=== PATIENT | male | born 1945 | race Caucasian/White ===

== ENCOUNTER 2019-04-30 11:13 | Inpatient (IN) | payer OTHER, SELFPAY ==
[2019-04-30] VITALS (10 sets, daily range): BP systolic 106–139; BP diastolic 73–103; PULSE 88–115; RESP 15–22; TEMP 36.2–36.4; O2SAT 95–100; BMI 26.4
--- NOTE | ~2019-04-30 | XR_ITS ---
EXAMINATION: XR cholangiogram surg 1st inj EXAM DATE: 05/03/2019 18:45 INDICATION: Cholecystectomy, intraoperative cholangiogram. TECHNIQUE: Fluoroscopy used during XR cholangiogram surg 1st inj performed by Dr. Maynor Bernstein MD. The DAP for this procedure was 0.2 mGym2. Cine run(s) available for review. FINDINGS: Contrast extravasation from injection site, cannot confidently identify or evaluate any grady iary system. Correlate with procedure note. IMPRESSION: Fluoroscopy used during XR cholangiogram surg 1st inj. Reviewed, dictated and finalized at location A. ER FILLER
--- NOTE | ~2019-04-30 | US_ITS ---
EXAMINATION: US venous doppler LE EXAM DATE: 05/08/2019 12:48 INDICATION: Leukocytosis, bilateral leg swelling. TECHNIQUE: Multiple grayscale, color flow and Doppler images of the lower extremity deep venous syste ms bilaterally were obtained and reviewed. There is no prior study for comparison. FINDINGS: Right side: The right common femoral, femoral and profunda veins demonstrate normal color flow, respi ratory variation, augmentation and compressibility. Compressibility, color flow confirmed within the right popliteal, posterior tibial, peroneal, and greater saphenous veins. Left side: The left common femoral, femoral and profunda veins demonstrate normal color flow, respira tory variation, augmentation and compressibility. Compressibility, color flow confirmed within the l eft popliteal, posterior tibial, peroneal, and greater saphenous veins. IMPRESSION: 1. No lower extremity deep venous thrombosis bilaterally. Reviewed, dictated and finalized at location B. IAL SERVICE OFFICER
--- NOTE | ~2019-04-30 | MR_ITS ---
EXAMINATION: MR MRCP wo/w con/w 3D wo ind DATE: 05/02/2019 10:56 INDICATION: Abnormal CT scan concerning for pancreatitis, abdominal pain TECHNIQUE: Magnetic resonance imaging (MRI) of the abdomen was performed without and with intravenous contrast. Sequences included coronal T2-weighted SS-FSE ARC, coronal T2-weighted FS SS-FSE, coronal T2-weighted 2D FS FIESTA, Water:Coronal LAVA-Flex, sagittal T2-weighted SS-FSE ARC, axial SSFSE ARC, axial 3D DualEcho, axial DWI B=600, axial T1-weighted LAVA, FAT:Coronal LAVA-Flex, and coronal in and opposed phase LAVA-Flex. Thick-slab T2-weighted FRFSE-XL images were obtained for magnetic resonance cholangiopancreatography (MRCP). Maximum intensity projection 3-D reconstructions of the volumetric data were created by the technologist. Postcontrast sequences included a time course of axial T1-weig hted LAVA, FAT:Coronal LAVA-Flex, coronal in and opposed phase LAVA-Flex, and Water:Coronal LAVA-Flex . COMPARISON: None. CONTRAST: Multihance, 17 cc FINDINGS: ABDOMEN MRI: Small pleural effusions are noted. The heart size is normal. There is a small volume of perihepatic ascites. The liver, spleen, and adrenal glands appear normal. There are stones and sludge in the gallbladder including stones in the neck of the gallbladder. There is trace pericholecystic f luid. The pancreas demonstrates slightly increased T2 signal intensity and is somewhat ill-defined in shape, suggestive of edema. There is persistent peripancreatic fluid which is unchanged. This fluid demonstrates hyperintense T1 signal intensity on precontrast sequences. Although limited by motion ar tifact, there appears to be uniform enhancement of the pancreas on postcontrast sequences. There are multiple cysts of the kidneys. The 1.2 cm right kidney lesion identified on the comparison CT examina tion has an appearance consistent with a proteinaceous or hemorrhagic cyst. There are hemorrhagic cys ts of the left kidney measuring up to 6 mm. There are no pathologically enlarged abdominal lymph node s. There are no dilated loops of bowel. ABDOMEN MRCP: The common bile duct is normal in course and caliber. No stones or stricture are identi fied in the common bile duct. The pancreatic duct appears normal in head and neck and is attenuated i n the body and tail. Multiple stones are noted in the gallbladder including within the gallbladder ne ck. IMPRESSION: 1. Ill-defined pancreas with acute peripancreatic fluid collection. Although lipase is normal, imagin g findings remain consistent with interstitial edematous pancreatitis, possibly related to gallstones that have since passed. T1 hyperintense fluid surrounding the pancreas may be proteinaceous or hemor rhagic. 2. Normal common bile duct without stones or stricture. 3. Cholelithiasis including stones in the gallbladder neck. 4. Hemorrhagic or proteinaceous cyst corresponding to the right kidney lesion in question on the comp [facility] Reviewed, dictated and finalized at location A. OR ACCOUNT DIRECTOR IMPRESSION: 1. Ill-defined pancreas with acute peripancreatic fluid collection. Although li pase is normal, imaging findings remain consistent with interstitial edematous pancreatitis, possibly related to gallstones that have since passed. T1 hyperin tense fluid surrounding the pancreas may be proteinaceous or hemorrhagic. 2. Normal common bile duct without stones or stricture. 3. Cholelithiasis including stones in the gallbladder neck. 4. Hemorrhagic or proteinaceous cyst corresponding to the right kidney lesion i n question on the comparison CT.
--- NOTE | ~2019-04-30 | CT_ITS ---
EXAMINATION: CT abdomen pelvis w con INDICATION: Altered mental status, abdominal pain TECHNIQUE: Computed tomographic images of the abdomen and pelvis were obtained after the administrati on of 100 cc of Omnipaque 350 intravenous contrast. The dose-length product (DLP) was 587.98 mGy-cm. Automated exposure control and iterative reconstruction technique were employed. COMPARISON: None available FINDINGS: Small pleural effusions are present. There is mild atelectasis of the visualized lung bases . The heart size is normal. There is subendocardial fat deposition in the left ventricular apex which may reflect prior infarction. The liver, spleen, and adrenal glands are normal. There are punctate c alcifications in the tail of the pancreas. There appears to be uniform enhancement of the pancreas. T here is a moderate amount of peripancreatic fluid. There is mild gallbladder distention. On some imag es, there appear to be subtle lucencies in the distal common bile duct. There is a small amount of pe rihepatic ascites. There is fat stranding surrounding the gallbladder which likely relates to abnorma l pancreatic findings. Nonobstructing stones of the right kidney measure up to 2.2 cm. Nonobstructing left kidney stone measure up to 0.9 cm. There is a 1.2 cm soft tissue density lesion projecting from the lateral aspect of the right kidney. No pathologically enlarged abdominal or pelvic lymph nodes a re identified. There is no free intraperitoneal gas or evidence of bowel obstruction. Colonic diverti culosis is present without evidence of diverticulitis. There is severe lumbar spondylosis. IMPRESSION: 1. Findings consistent with interstitial edematous pancreatitis with acute peripancreatic fluid colle ction, possibly related to choledocholithiasis. 2. Indeterminate soft tissue density lesion of the right kidney which could reflect proteinaceous cys t or solid neoplasm. Consider nonemergent ultrasound. Reviewed, dictated and finalized at location A. ARCH SOFTWARE ENGINEER IMPRESSION: 1. Findings consistent with interstitial edematous pancreatitis with acute agustin pancreatic fluid collection, possibly related to choledocholithiasis. 2. Indeterminate soft tissue density lesion of the right kidney which could ref lect proteinaceous cyst or solid neoplasm. Consider nonemergent ultrasound.
--- NOTE | ~2019-04-30 | XR_ITS ---
EXAMINATION: XR chest 2V DATE: 05/06/2019 08:00 INDICATION: Wheezing. TECHNIQUE: Frontal and lateral views of the chest were obtained. COMPARISON: Chest single view 04/17/2019, CT abdomen and pelvis 04/30/2019 FINDINGS: The lung volumes are small with mild relative elevation of right hemidiaphragm. There is mi ld atelectasis at the lung bases. There are small pleural effusions. No pneumothorax. The heart size is normal. IMPRESSION: 1. Small pleural effusions. 2. Mild atelectasis at the lung bases. Reviewed, dictated and finalized at location A. CATION TECHNICIAN
--- NOTE | 2019-04-30 11:20 | ECG_ITS ---
Measurements Intervals [place] Rate: 113 P: 13 NC: 140 QRS: -30 QRSD: 108 T: 31 QT: 317 QTc: 436 Interpretive Statements SINUS TACHYCARDIA ATRIAL PREMATURE COMPLEX POSSIBLE LEFT ATRIAL ENLARGEMENT DELAYED PRECORDIAL R/S TRANSITION BORDERLINE ST-T WAVE ABNORMALITY- DIFFUSE LEADS BASELINE WANDER- I, II, V1-V2, V6 ABNORMAL ECG Electronically Signed On 04-30-2019 11:37:07 CUSTOMER RELATIONS CONSULTANT by Dakota Hickey D.O.
--- NOTE | 2019-04-30 11:22 | ED.AMS ---
HPI - Altered Mental Status General Chief Complaint: Unspecified Stated Complaint: Refusing to eat Time Seen by Provider: 04/30/19 11:15 Source: patient, RN notes reviewed and old records reviewed Mode of arrival: EMS Limitations: dementia History of Present Illness HPI narrative: A 73 y/o male pt with a Hx of dementia, presents to the ED, via EMS, from [facility], with C/O AMS x2 days reported by staff. According to nursing staff, pt's baseline is alert and oriented x2. He is currently denying any pain or nausea and does not remember what he had for breakfast. Pt is also unaware of the mass on the back of his neck. Per records, pt has a Hx of dementia and hypothyroidism. Pt denies having any significant PSHx or smoking Hx. A complete HPI is limited d/t pt having dementia. complaint: altered mental status Onset (ago): day(s) (2) Timing confirmed by: other (Nursing Facility staff) Associated symptoms: denies other symptoms Related Data Home Medications Medication Instructions Recorded Confirmed donepezil 10 mg PO HS 04/17/19 04/17/19 folic acid 1 mg PO DAILY 04/17/19 04/17/19 levothyroxine 100 mcg PO DAILY 04/17/19 04/17/19 thiamine HCl (vitamin B1) [Vitamin 100 mg PO DAILY 04/17/19 04/17/19 B-1] trihexyphenidyl 1 mg PO BID 04/17/19 04/17/19 Allergies Allergy/AdvReac Type Severity Reaction Status Date / Time No Known Allergies Allergy Verified 04/17/19 17:28 Review of Systems Review of Systems: Narrative: A complete ROS is limited d/t patient having dementia Constitutional: Constitutional: Denies other (pain anywhere) Gastrointestinal: Gastrointestinal: Denies nausea PMFSH Past Medical History Medical History (Updated 04/30/19 @ 15:57 by Jamie Mitchell MD) Alzheimer's dementia Bipolar disorder Hypothyroidism Psychosis Seizures Surgical History Surgical History (Updated 04/30/19 @ 13:28 by JASON Hensley) No significant past surgical history Social History Social History (Updated 04/30/19 @ 13:28 by JASON Hensley) Smoking status: Unknown if ever smoked Alcohol intake: unknown Substance use: unknown Substance use type: unknown [facility] Additional living arrangements comments: [facility]. Patient does tell me he was previously and now . Occupation/Education: retired Gender identity (if verbalized by the patient): Male Spiritual care concerns: Yes (Mormon) Agree to blood products: Yes Exam Const: General: alert, awake and ill appearing Orientation/consciousness: oriented to person and oriented to place Limitations: altered mental status HENMT: Head: normocephalic and atraumatic Ears: external ears normal General nose exam: Normal external nose present and No nasal discharge present Mouth: Yes oropharynx normal and Yes dry mucous membranes Resp: Effort & Inspection: normal respiratory effort and able to speak in complete sentences Auscultation: clear to auscultation bilaterally Cardio: Rate: tachycardic Rhythm: regular rhythm Peripheral pulses: radial pulses present and popliteal pulses present GI: Inspection: non-distended GI Palp: Yes Soft to palpation, No Tenderness to palpation present (GI) and No Guarding due to palpation present (GI) Skin: General skin exam: normal color and no rashes or lesions noted Trauma: no lacerations or abrasions Wounds: no wounds Neuro: General: oriented to person, oriented to place and moves all extremities Speech: normal speech Extrem: General: normal to inspection and no clubbing, cyanosis or edema Course Consultations Consultation #1: Discussed case with Dr. Bernstein the general surgeon. Reccommended consulting GI and medicine admission. Date: 04/30/19 Time: 15:02 Consultation #2: Discussed case with Dr. Bueno, the GI specialist. Recommends IV fluids and MCRP. Date: 04/30/19 Time: 15:07 Consultation #3: Discussed case with Paul
[2019-04-30] MEDS: SODIUM CHLORIDE 0.9% IV 1,000 ML 999 ML IV CONT ×2 (11:46→12:58)
[2019-04-30 11:48] LABS: Basophils Absolute Auto 0.1 K/mm3 (0.0-0.1); Basophils Percent Auto 0.3 % (0.2-1.2); Hematocrit 54.7 % (42.0-52.0); Hemoglobin 17.9 g/dL (14.0-18.0); Immature Granulocyte Percent A 1.3 % (0-0.5); Lymphocytes Absolute Auto 0.99 K/mm3 (0.9-3.2); Lymphocytes Percent Auto 4.3 % (18.3-44.2); Mean Corpuscular HGB Conc 32.7 g/dl (32-36); Mean Corpuscular Volume 94.6 fl (80-100); Mean Platelet Volume 10.2 fl (7.4-10.4); Monocytes Absolute Auto 1.1 K/mm3 (0.1-0.6); Monocytes Percent Auto 4.9 % (2.6-8.5); Neutrophils Absolute Auto 20.4 K/mm3 (1.3-6.7); Neutrophils Percent Auto 89.2 % (45.5-73.1); Platelet Count Result 257 k/mm3 (150-375); Red Blood Count 5.78 M/mm3 (4.6-6.20); Red Cell Distribution Width 14.4 % (11.5-14.5); White Blood Count 22.8 K/mm3 (4.5-10.0)
[2019-04-30 12:32] LABS: Add Urine Microscopic? YES; Appearance Urine Clear (Clear); Bacteria Urine Trace /hpf; Bilirubin Urine Negative (Negative); Blood Urine 1+ (Negative); Color Urine Amber (Yellow); Glucose Urine UA Negative (Negative); Ketones Urine Negative (Negative); Leukocyte Esterase Ur Negative LEU/UL (Negative); Mucus Urine Heavy /lpf; Nitrate Urine Negative (Negative); Protein Urine 2+ mg/dL (Negative); RBC Urine 21-50 /hpf (0-2); Specific Grav Ur 1.028 (1.001-1.035); WBC Urine 21-30 /hpf
--- NOTE | 2019-04-30 12:38 | PC.NURSE ---
SHAHNAZ HENDERSON INFORMED OF PT VS, AND THAT FLUIDS ARE FINISHED, STATES HE WANTS ANOTHER STAT BOLUS OF NS.
[2019-04-30 13:02] LABS: Alanine Aminotransferase 69 U/L (4-50); Albumin Level 3.2 g/dL (3.5-5.1); Alkaline Phosphatase 299 U/L (38-126); Aspartate Amino Transferase 36 U/L (17-59); Bilirubin,Total 2.7 mg/dL (0.2-1.3); Blood Urea Nitrogen 38 mg/dL (9-20); Calcium 6.6 mg/dL (8.4-10.2); Carbon Dioxide 22 mmol/L (22-30); Chloride 98 mmol/L (98-107); Estimated CRCL calculation 64 ml/min; Estimated Glomerular Filt Rate > 60; Glucose 120 mg/dL (75-110); Potassium 3.8 mmol/L (3.4-5.0); Sodium 133 mmol/L (137-145)
[2019-04-30 14:15] LABS: Lipase 155 U/L (23-300)
[2019-04-30 14:54] LABS: Lactic Acid Reflex 1.5 mmol/L (0.7-2.1)
--- NOTE | 2019-04-30 15:14 | PM.CNGS ---
Assessment and Plan Assessment and plan (1) Acute pancreatitis: Qualifiers: Acute pancreatitis complication: unspecified Pancreatitis type: unspecified pancreatitis type Qualified Code(s): K85.90 - Acute pancreatitis without necrosis or infection, unspecified Code(s): K85.90 - Acute pancreatitis without necrosis or infection, unspecified Status: Acute Assessment and Plan: CT reviewed and discussed with the patient. He has evidence of acute pancreatitis with suspicion that the cause is due to possible choledocholelithiasis. This is a high suspicion considering he also has elevated liver enzymes and abnormal findings in the distal common bile duct on the CT. Although no evidence of cholelithiasis on the CT. MRCP ordered and will await these results. GI consulted and appreciate their recommendations. If the patient does have findings of choledocholithiasis, then we will await GI's recommendations and possible ERCP prior to considering proceeding with a cholecystectomy. When looking at other possibilities of the pancreatitis, history of alcohol abuse is unknown although you would not expect exposure to this in the senior living. When reviewing his medications, there is no significant concern for any of them to be the cause. Another consideration could be a lipid panel if there is no evidence of choledocholelithiasis. That being said, the patient appears comfortable and is not in any pain on the time of my exam. His lipase is normal. For now, I would recommend continuing with IV fluids and it would be okay from a surgical standpoint to allow him to have a clear liquid diet. We will continue to follow along with serial abdominal exams and labs. Thank you for allowing me to evaluate the patient in consultation and we will continue to follow along with you. (2) Choledocholithiasis: Code(s): K80.50 - Calculus of bile duct without cholangitis or cholecystitis without obstruction Status: Acute (3) Alzheimer's dementia: Qualifiers: Alzheimer's disease onset: unspecified onset Dementia behavioral disturbance: without behavioral disturbance Qualified Code(s): G30.9 - Alzheimer's disease, unspecified; F02.80 - Dementia in other diseases classified elsewhere without behavioral disturbance Code(s): G30.9 - Alzheimer's disease, unspecified; F02.80 - Dementia in other diseases classified elsewhere without behavioral disturbance Status: Chronic Assessment and Plan: We will need to discuss options with the patient's next of kin/POA. Will look through the senior living records for any POA paperwork or the delegated contact/decision maker. (4) Bipolar disorder: Qualifiers: Active/Remission status: remission status unspecified Qualified Code(s): F31.9 - Bipolar disorder, unspecified Code(s): F31.9 - Bipolar disorder, unspecified Status: Chronic (5) Seizures: Code(s): R56.9 - Unspecified convulsions Status: Chronic Additional Plan Discussed the patient's case and plan of care with Dr. Bernstein. History of Present Illness Consult details Consult date: 04/30/19 Reason for consult: other (Pancreatitis with suspicion of choledocholithiasis and elevated LFTs) Requesting physician: Jamie Mitchell MD Narrative: This is a 73-year-old male with a history of Alzheimer's disease and seizure disorder, who was brought to the emergency department apparently for evaluation of altered mental status with decreased oral intake. The patient has severe dementia and therefore is a poor historian. He is unsure why he is here and has no complaints at the time of my exam. There is no family or friends at the bedside either. Therefore, his history is obtained from the electronic medical record and his medical record from the senior living. I also spoke with his nurse who reports that the patient apparently had a decrease in oral intake over the past few days and had an altered mental s
[2019-04-30] MEDS: SODIUM CHLORIDE 0.9% IV 1,000 ML 150 ML IV CONT (15:34)
--- NOTE | 2019-04-30 16:15 | ADMGEN ---
This patient, Luis Corral, was admitted to Medical Room 247-. Patient/family oriented to hospital policies and general routines including ID bracelet, bed and alarms, visiting hours, pain management, procedures, bathroom and other care routines, personal items, smoking policy, room service/diet, and visiting hours. Valuables list has been completed. Information on how to activate the Rapid Response Team has been discussed. Patient/Family are encouraged to report perceived risks to care and to ask questions if they do not understand what they are told or what they should do.
--- NOTE | 2019-04-30 19:39 | PC.NURSE ---
Pt unable to sign consent. Called pt sister Mayra, due to the sister Cele phone being disconnected, to obtain a consent for the MRCP and MRI. Prem Adame RN witnessed the consent. Mayra also stated that they do not have an active phone number for Cele due to they have not spoken to her in a couple years.
--- NOTE | 2019-04-30 21:07 | PM.IMHP ---
H&P: HPI History of Present Illness Chief complaint: Pancreatitis, choledocolithiasis Narrative: Luis Corral is a 73 year old male male patient who resides at [facility]. The patient has a past medical history have having dementia. The patient did not feel like any today. He is very hard of hearing and I am having difficulty getting answers from the patient. He says he is thirsty now but he was not having any abdominal pain that he just did feel like eating. The staff stated that he had altered mental status x2. Usually his alert and orientated x2 at the [facility]. He is aware that he has hypothyroidism and is able to give me that diagnosis. White count was noted to be 22.8. CT of the abdomen was read as findings consistent with interstitial edematous pancreatitis with acute peripancreatic fluid collection, possibly related to coledocodocholiasis. Head CT shows no acute intracranial findings. Chronic age-related findings. Mild posterior vertex scalp swelling. Chest x-ray was negative. Date of service 04/30/2019. The patient was started on IV fluids and Zosyn. the Zosyn was later discontinued. Surgery was consulted has seen the patient. MRCP is ordered for tomorrow given the fact that his liver enzymes elevated. Review of Systems Review of Systems: All systems reviewed & are unremarkable except as noted in HPI and below ROS unobtainable: unobtainable due to mental status Constitutional: Constitutional: Reports as per HPI Eyes: Eyes: Reports as per HPI and Reports no additional eye complaints ENT: Reports system reviewed and no additional complaints, except as documented, Reports as per HPI and Reports other (Very hard of hearing) Cardiovascular: Cardiovascular: Reports no additional cardiovascular complaints Respiratory: Respiratory: Reports no additional respiratory complaints Gastrointestinal: Gastrointestinal: Reports as per HPI Integumentary/Breasts: Skin/Breast: Reports system reviewed and no additional complaints, except as docu and Reports as per HPI Neurologic: Reports system reviewed and no additional complaints, except as documented, Reports as per HPI and Reports Normal hearing present Comments: History of seizure disorder Psychiatric: Psychiatric: Reports no additional psychiatric complaints and Reports as per HPI Comments: Bipolar disorder and psychosis. Endocrine: Endocrine: Reports no additional endocrine complaints Hematologic/Lymphatic: Hematologic/Lymphatic: Reports no additional hematologic/lymphatic complaints Allergic/Immunologic: Allergic/Immunologic: Reports no additional allergic/immunologic complaints [facility] Past Medical History Medical History (Updated 04/30/19 @ 21:15 by Kyleigh Neri NP) Alzheimer's dementia Bipolar disorder Hypothyroidism Psychosis Seizures Surgical History Surgical History No significant past surgical history Family History Family History Other Unknown family medical history Social History Social History (Updated 04/30/19 @ 21:17 by Kyleigh Neri NP) Social History: 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 He desires to be a full code and does not have a power knitter operator. He is from his . He denies any alcohol or tobacco abuse Smoking status: Unknown if ever smoked Alcohol intake: unknown Substance use: unknown Substance use type: unknown Living arrangements: [facility] Additional living arrangements comments: [facility]. Patient does tell me he was previously and now . Occupation/Education: retired Gender identity (if verbalized by the patient): Male Spiritual care concerns: No Agree to blood products: Yes Meds Home Medications and Allergies Home Medications Medication Instructions Recorded Confirmed Ty
[2019-05-01] VITALS (8 sets, daily range): BP systolic 110–137; BP diastolic 48–67; PULSE 74–88; RESP 14–20; TEMP 36.5–37.2; O2SAT 97–98
[2019-05-01] MEDS: LEVOTHYROXINE SODIUM INJ 100 MCG/5 ML VIAL 50 MCG IV PUSH (05:33)
[2019-05-01 05:47] LABS: Basophils Percent Auto 0.2 % (0.2-1.2); Hematocrit 45.8 % (42.0-52.0); Hemoglobin 14.9 g/dL (14.0-18.0); Immature Granulocyte Absolute 0.04 K/mm3 (0.00-0.031); Immature Granulocyte Percent A 0.3 % (0-0.5); Lymphocytes Absolute Auto 0.75 K/mm3 (0.9-3.2); Lymphocytes Percent Auto 4.8 % (18.3-44.2); Mean Corpuscular HGB Conc 32.5 g/dl (32-36); Mean Corpuscular Volume 95.4 fl (80-100); Mean Platelet Volume 10.8 fl (7.4-10.4); Monocytes Absolute Auto 0.8 K/mm3 (0.1-0.6); Monocytes Percent Auto 5.2 % (2.6-8.5); Neutrophils Percent Auto 89.5 % (45.5-73.1); Platelet Count Result 201 k/mm3 (150-375); Red Cell Distribution Width 14.3 % (11.5-14.5); White Blood Count 15.7 K/mm3 (4.5-10.0)
[2019-05-01 05:52] LABS: Alanine Aminotransferase 52 U/L (4-50); Albumin Level 2.8 g/dL (3.5-5.1); Alkaline Phosphatase 231 U/L (38-126); Aspartate Amino Transferase 38 U/L (17-59); Bilirubin,Total 1.5 mg/dL (0.2-1.3); Blood Urea Nitrogen 24 mg/dL (9-20); Calcium 6.7 mg/dL (8.4-10.2); Carbon Dioxide 24 mmol/L (22-30); Chloride 105 mmol/L (98-107); Cholesterol 126 mg/dL (0-200); Estimated CRCL calculation 89 ml/min; Estimated Glomerular Filt Rate > 60; Glucose 84 mg/dL (75-110); HDL Direct 15 mg/dL; Lipase 63 U/L (23-300); Magnesium 2.2 mg/dL (1.6-2.3); Potassium 3.7 mmol/L (3.4-5.0); Sodium 139 mmol/L (137-145); Triglycerides 117 mg/dL (<150)
[2019-05-01 05:59] LABS: LDL Cholesterol Direct 88 mg/dL
[2019-05-01] MEDS: SODIUM CHLORIDE 0.9% IV 1,000 ML 125 ML IV CONT ×3 (08:00→17:24)
[2019-05-01 10:36] LABS: Free T4 Free Thyroxine Reflex 0.67 ng/dL (0.78-2.19)
--- NOTE | 2019-05-01 11:11 | PM.PNGS ---
Progress Note: A&P Assessment and Plan (1) Acute pancreatitis: Qualifiers: Acute pancreatitis complication: unspecified Pancreatitis type: unspecified pancreatitis type Qualified Code(s): K85.90 - Acute pancreatitis without necrosis or infection, unspecified Code(s): K85.90 - Acute pancreatitis without necrosis or infection, unspecified Status: Acute Assessment and Plan: CT evidence of acute interstitial pancreatitis with suspicion that the cause is due to possible choledocholelithiasis with also associated elevated LFTs. WBC and LFTs trending down today. Lipase normal again today. Patient without any complaints of pain still today and he is less tender. Pending MRCP. GI consulted and appreciate their recommendations. Continue IV fluids and bowel rest while awaiting MRCP and GI consult. (2) Choledocholithiasis: Code(s): K80.50 - Calculus of bile duct without cholangitis or cholecystitis without obstruction Status: Acute (3) Alzheimer's dementia: Qualifiers: Alzheimer's disease onset: unspecified onset Dementia behavioral disturbance: without behavioral disturbance Qualified Code(s): G30.9 - Alzheimer's disease, unspecified; F02.80 - Dementia in other diseases classified elsewhere without behavioral disturbance Code(s): G30.9 - Alzheimer's disease, unspecified; F02.80 - Dementia in other diseases classified elsewhere without behavioral disturbance Status: Chronic Assessment and Plan: Found the patient's information for emergency contact and next of kin. Will try to contact family to discuss his case and current treatment. (4) Bipolar disorder: Qualifiers: Active/Remission status: remission status unspecified Qualified Code(s): F31.9 - Bipolar disorder, unspecified Code(s): F31.9 - Bipolar disorder, unspecified Status: Chronic (5) Seizures: Code(s): R56.9 - Unspecified convulsions Status: Chronic Additional Plan Discussed the patient's case and plan of care with Dr. Bernstein. Subjective Subjective Date/Time Seen: 05/01/19 09:00 Patient reports: no new complaints Interval history: Patient seen and examined. No family at the bedside. Denies any abdominal pain, nausea, or vomiting today. No specific complaints today. Appears comfortable. I reviewed the transfer records from [facility] and his emergency contacts which all appear to be out of state. Review of Systems Review of Systems: ROS unobtainable: other (difficult to obtain d/t severe dementia) Constitutional: Constitutional: Reports as per HPI Cardiovascular: Cardiovascular: Denies chest pain Gastrointestinal: Gastrointestinal: Reports as per HPI, Denies abdominal pain, Denies bloating, Denies diarrhea, Denies nausea and Denies vomiting Exam Const: General: no acute distress, alert and awake Orientation/consciousness: oriented to person, No oriented to place and No oriented to time GI: Inspection: normal to inspection and non-distended GI Palp: Yes Soft to palpation, Yes Tenderness to palpation present (GI) (LUQ), No Guarding due to palpation present (GI) and No Rebound tenderness present Auscultation: normal bowel sounds Rectal Exam: deferred Skin: General skin exam: normal color Neuro: General: moves all extremities Cranial nerves: Yes CN's II-XII intact bilaterally Extrem: General: normal to inspection and no edema Psych: Attitude: cooperative (and calm) Objective Data Vital Signs Vital Signs: Vital Signs - 24 hr 04/30/19 11:18 04/30/19 12:34 04/30/19 14:09 Temperature Pulse Rate 111 H 115 H 103 H Respiratory Rate 18 22 H Blood Pressure 112/79 106/73 Pulse Oximetry 97 100 04/30/19 15:09 04/30/19 15:34 04/30/19 16:00 Temperature 36.2 C L Pulse Rate 104 H 102 H 105 H Respiratory Rate 21 H 15 20 Blood Pressure 123/79 120/82 129/103 H Pulse Oximetry 98 99 97 04/30/19 16:07 04/30/19 20:00 04/30/19 22:0
--- NOTE | 2019-05-01 11:39 | WPDGICN ---
Assessment and Plan Additional Plan This is a 73-year-old white male patient I am asked to see at the request of the emergency room. Patient currently resident of [facility]. He apparently had decreased oral intake and general malaise. Because of altered mental status additional history is difficult to obtain. He denies a Karin pain at the present time. He was sent to the emergency room last night a CT scan of the abdomen was performed. CT scan suggested pancreatitis. Although no gallstones were seen they raise the question of common bile duct gallstones. Additional history is not able to be obtained from the patient. Past medical history is significant for else I am was dementia. Bipolar disorder. Hypothyroidism. Family history is unobtainable. Medications at the time of presentation include donepezil Folic acid. Levothyroxine. Thiamin. Remeron. And Seroquel. There are no stated drug allergies. Physical exam reveals patient to be alert. Vital signs stable. HEENT exam unremarkable. He is anicteric. Lungs are clear to auscultation and percussion. Heart is without murmur or extra sounds. Abdominal exam bowel sounds are present abdomen is modestly enlarged. No overt tenderness. No localized tenderness no masses appreciated. Rectal exam deferred. Laboratory tests reveals WBC 22 hemoglobin 17 hematocrit 54. Total bilirubin 2.7 AST 36 ALT 69 alk-phos 299 Impression 1. Acute pancreatitis. Etiology unclear. Plan is for MRCP to clear the common bile duct. 2. Dementia. 3. Bipolar disorder. Plan is to proceed with MRCP. Monitor lipase. Gradually advanced diet as tolerated. We will follow with you during this hospital stay. 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 He desires to be a full code and does not have a power city attorney. He is from his . He denies any alcohol or tobacco abuse Smoking status: Unknown if ever smoked Alcohol intake: unknown Substance use: unknown Substance use type: unknown Living arrangements: [facility] [place] [facility] Additional living arrangements comments: [facility]. Patient does tell me he was previously and now . Occupation/Education: retired Gender identity (if verbalized by the patient): Male Spiritual care concerns: No Agree to blood products: Yes Meds Home Medications and Allergies Home Medications Medication Instructions Recorded Confirmed Type donepezil 10 mg PO HS 04/17/19 04/30/19 History folic acid 1 mg PO DAILY 04/17/19 04/30/19 History levothyroxine 100 mcg PO DAILY 04/17/19 04/30/19 History thiamine HCl (vitamin B1) [Vitamin 100 mg PO DAILY 04/17/19 04/30/19 History B-1] trihexyphenidyl 1 mg PO BID 04/17/19 04/30/19 History mirtazapine [Remeron] 7.5 mg PO HS 04/30/19 04/30/19 History quetiapine [Seroquel] 25 mg PO HS 04/30/19 04/30/19 History Allergies Allergy/AdvReac Type Severity Reaction Status Date / Time No Known Allergies Allergy Verified 04/17/19 17:28 Vital Signs Vital Signs - 24 hr 04/30/19 12:34 04/30/19 14:09 04/30/19 15:09 Temperature Pulse Rate 115 H 103 H 104 H Respiratory Rate 18 22 H 21 H Blood Pressure 112/79 106/73 123/79 Pulse Oximetry 97 100 98 04/30/19 15:34 04/30/19 16:00 04/30/19 1
--- NOTE | 2019-05-01 16:39 | PM.IMPN ---
Progress Note: A&P Assessment and Plan (1) Acute pancreatitis: Qualifiers: Acute pancreatitis complication: unspecified Pancreatitis type: unspecified pancreatitis type Qualified Code(s): K85.90 - Acute pancreatitis without necrosis or infection, unspecified Code(s): K85.90 - Acute pancreatitis without necrosis or infection, unspecified Status: Acute Assessment and Plan: CT evidence of acute interstitial pancreatitis with suspicion that the cause is due to possible choledocholelithiasis with also associated elevated LFTs. Total bilirubin on arrival was 2.7 improved to 1.5 today. AST was normal on arrival and still normal this morning. ALT on arrival was 69 and improved to 52 today. Alk-phos on arrival was 299 improved to 31 this morning. Patient's lipid profile was normal. Patient's lipase this morning was normal. Continue monitoring the patient's symptoms. Appreciate input from GI and surgery Services. (2) Choledocholithiasis: Code(s): K80.50 - Calculus of bile duct without cholangitis or cholecystitis without obstruction Status: Acute Assessment and Plan: MRCP is ordered and GI has been consulted. Surgery ordered an MRCP to look further for choledocholelithiasis but the patient was unable to sit still for the MRI and was unable to be completed. I called Dr. Bueno and GI who would like to continue trending his liver enzymes in the morning and monitor his symptoms and possibly trying repeat another test tomorrow. Dr. Bueno was okay with having the patient start a clear liquid diet since he has been NPO since arrival. The patient is not having any abdominal pain during my examination today. Will continue monitoring the patient's symptoms and how he tolerates a clear liquid diet and further input is appreciated from GI and surgery. (3) Hypothyroidism: Code(s): E03.9 - Hypothyroidism, unspecified Status: Chronic Assessment and Plan: The patient's TSH was 6.79 and free T4 was 0.67. The nurse called the senior care and the last time is TSH was checked was November of 2018. At this time I will increase his levothyroxine to 112.5 daily and will have his senior care recheck his labs in 3 months. (4) Alzheimer's dementia: Qualifiers: Alzheimer's disease onset: unspecified onset Dementia behavioral disturbance: without behavioral disturbance Qualified Code(s): G30.9 - Alzheimer's disease, unspecified; F02.80 - Dementia in other diseases classified elsewhere without behavioral disturbance Code(s): G30.9 - Alzheimer's disease, unspecified; F02.80 - Dementia in other diseases classified elsewhere without behavioral disturbance Status: Chronic Assessment and Plan: Patient is NPO so were not able to give him his Seroquel hours Remeron or Aricept at this time. We are still working up the patient but we are starting clear liquid diet at this time. We will continue monitoring his symptoms and see how he does with the diet and how his LFTs are in the morning. Continue holding his medications. (5) Bipolar disorder: Qualifiers: Active/Remission status: remission status unspecified Qualified Code(s): F31.9 - Bipolar disorder, unspecified Code(s): F31.9 - Bipolar disorder, unspecified Status: Chronic Assessment and Plan: Patient is stable at this time. All medications are on hold as well. Seroquel is on hold but may give Zyprexa IM if the patient becomes aggressive. Remeron is on hold. (6) Seizures: Code(s): R56.9 - Unspecified convulsions Status: Chronic Assessment and Plan: P.r.n. Ativan for seizure activity.
[2019-05-01 17:18] LABS: Alanine Aminotransferase 61 U/L (4-50); Albumin Level 2.9 g/dL (3.5-5.1); Alkaline Phosphatase 239 U/L (38-126); Aspartate Amino Transferase 66 U/L (17-59); Bilirubin,Total 1.5 mg/dL (0.2-1.3)
[2019-05-01 17:43] LABS: Amylase < 30 U/L (30-110)
[2019-05-02] VITALS: PULSE 73
[2019-05-02 01:48] VITALS: PULSE 76
[2019-05-02] MEDS: SODIUM CHLORIDE 0.9% IV 1,000 ML 125 ML IV CONT ×3 (03:54→18:41)
[2019-05-02 04:00] VITALS: PULSE 72
[2019-05-02] MEDS: LEVOTHYROXINE SODIUM INJ 100 MCG/5 ML VIAL 56.25 MCG IV PUSH (05:24)
[2019-05-02 06:00] VITALS: BP 133/76; PULSE 72; RESP 22; TEMP 37.3; O2SAT 95
[2019-05-02 06:34] LABS: Basophils Percent Auto 0.1 % (0.2-1.2); Hematocrit 44.4 % (42.0-52.0); Hemoglobin 14.5 g/dL (14.0-18.0); Immature Granulocyte Absolute 0.06 K/mm3 (0.00-0.031); Immature Granulocyte Percent A 0.4 % (0-0.5); Lymphocytes Absolute Auto 0.45 K/mm3 (0.9-3.2); Mean Corpuscular HGB Conc 32.7 g/dl (32-36); Mean Corpuscular Hemoglobin 30.4 pg (26-34); Mean Corpuscular Volume 93.1 fl (80-100); Mean Platelet Volume 10.9 fl (7.4-10.4); Monocytes Absolute Auto 0.9 K/mm3 (0.1-0.6); Monocytes Percent Auto 6.1 % (2.6-8.5); Neutrophils Absolute Auto 13.4 K/mm3 (1.3-6.7); Neutrophils Percent Auto 90.4 % (45.5-73.1); Platelet Count Result 226 k/mm3 (150-375); Red Blood Count 4.77 M/mm3 (4.6-6.20); Red Cell Distribution Width 14.3 % (11.5-14.5); White Blood Count 14.8 K/mm3 (4.5-10.0)
[2019-05-02 06:54] LABS: Alanine Aminotransferase 84 U/L (4-50); Albumin Level 2.8 g/dL (3.5-5.1); Alkaline Phosphatase 221 U/L (38-126); Aspartate Amino Transferase 127 U/L (17-59); Bilirubin,Total 1.5 mg/dL (0.2-1.3); Blood Urea Nitrogen 19 mg/dL (9-20); Calcium 7.1 mg/dL (8.4-10.2); Carbon Dioxide 22 mmol/L (22-30); Chloride 105 mmol/L (98-107); Estimated CRCL calculation 120 ml/min; Estimated Glomerular Filt Rate > 60; Glucose 92 mg/dL (75-110); Lipase 68 U/L (23-300); Magnesium 2.4 mg/dL (1.6-2.3); Potassium 3.5 mmol/L (3.4-5.0); Sodium 136 mmol/L (137-145)
--- NOTE | 2019-05-02 07:12 | WPDGIPROGNO ---
Progress Note: A&P Additional Plan Patient alert this morning. Very poor historian with his dementia. He is tolerating liquid diet. He was unable to proceed with MRCP because of agitation. Physical exam reveals abdomen to be modestly distended. He may have some epigastric discomfort. No obvious masses are noted. Laboratory testing reveals lipase to be normal. Mild elevation of bilirubin has declined. Serum transaminases mildly elevated as well. CT scan suggest pancreatitis. Impression 1. Epigastric pain. 2. Abnormal CT scan. Suggestive of pancreatitis. Patient does have normal lipase. No evidence of gallstones by CT scan. MRCP unable to be obtained so far. 3. Dementia Plan. Plan to advance diet slowly. Re-attempt MRCP if at all possible today. Continue to monitor liver function test. Bilirubin will be fractionated. Patient's pain is minimal and would limit pain medications unless necessary. Subjective Date/time seen: 05/02/19 07:12 Objective Data Vital Signs Vital Signs: Vital Signs - 24 hr 05/01/19 08:00 05/01/19 14:00 05/01/19 16:00 Temperature 36.5 C Pulse Rate 74 78 77 Respiratory Rate 14 Blood Pressure 137/67 Pulse Oximetry 97 05/01/19 20:00 05/01/19 22:00 05/02/19 00:00 Temperature 37.2 C Pulse Rate 82 80 73 Respiratory Rate 18 Blood Pressure 131/67 Pulse Oximetry 97 05/02/19 01:48 05/02/19 04:00 05/02/19 06:00 Temperature 37.3 C Pulse Rate 76 72 72 Respiratory Rate 22 H Blood Pressure 133/76 Pulse Oximetry 95 Intake/Output Intake/Output: Intake & Output 04/29/19 04/30/19 05/01/19 05/02/19 23:59 23:59 23:59 23:59 Intake Total 1000 2300 1400 Output Total 600 600 650 Balance 400 1700 750 Meds/Results Medications: Active Medications Generic Name Dose Route Start Last Admin Trade Name Freq PRN Reason Stop Dose Admin Sodium Chloride 1,000 mls @ 125 mls/hr 04/30/19 15:30 05/02/19 03:54 Normal Saline Iv IV CONT 125 mls/hr .Q8H LUPE Administration Levothyroxine Sodium 56.25 mcg 05/02/19 06:30 05/02/19 05:24 Levothyroxine Sodium Inj IV PUSH 56.25 mcg DAILY@0630 LUPE Administration Lorazepam 0.5 mg 04/30/19 21:05 Ativan Inj IV PUSH Q6H PRN Anxiety Morphine Sulfate 4 mg 04/30/19 15:28 Morphine Sulfate Inj IV PUSH Q2H PRN Pain Rated 7-10 Ondansetron HCl 4 mg 04/30/19 15:28 Zofran Inj IV PUSH Q4H PRN Nausea Radiology Results: ITS Impressions Abdomen/Pelvis CT 04/30/19 13:46 IMPRESSION: 1. Findings consistent with interstitial edematous pancreatitis with acute peripancreatic fluid collection, possibly related to choledocholithiasis. 2. Indeterminate soft tissue density lesion of the right kidney which could reflect proteinaceous cyst or solid neoplasm. Consider nonemergent ultrasound. Labs Labs: Laboratory Results - last 24 hr 05/01/19 05/01/19 05/01/19 04:53 16:50 16:50 WBC RBC Hgb Hct MCV MCH MCHC RDW Plt Count MPV Immature Gran % (Auto) Neut % (Auto) Lymph % (Auto) [place] % (Auto) Eos % (Auto) Baso % (Auto) Lymph # (Auto) [place] # (Auto) Eos # (Auto) Baso # (Auto) Abs Immat Gran (auto) Absolute Neuts (auto) Absolute Nucleated RBC Nucleated RBC % Sodium Potassium Chloride Carbon Dioxide BUN Creatinine Estim Creat Clear Calc Estimated GFR Glucose Calcium Magnesium Total Bilirubin 1.5 H Direct Bilirubin 0.0 AST 66 H ALT 61 H Alkaline Phosphatase 239 H Total Protein 6.0 L Albumin 2.9 L Amylase < 30 L Lipase Free T4 0.67 L 05/02/19 05/02/19 05:11 05:11 WBC 14.8 H RBC 4.77 Hgb 14.5 Hct 44.4 MCV 93.1 MCH 30.4 MCHC 32.7 RDW 14.3 Plt Count 226 MPV 10.9 H Immature Gran % (Auto) 0.4 Neut % (Auto) 90.4 H Lymph % (Auto) 3.0 L [place] % (Auto) 6.1 Eos % (Auto) 0
--- NOTE | 2019-05-02 09:31 | PM.IMPN ---
Progress Note: A&P Assessment and Plan (1) Acute pancreatitis: Qualifiers: Acute pancreatitis complication: unspecified Pancreatitis type: unspecified pancreatitis type Qualified Code(s): K85.90 - Acute pancreatitis without necrosis or infection, unspecified Code(s): K85.90 - Acute pancreatitis without necrosis or infection, unspecified Status: Acute Assessment and Plan: CT evidence of acute interstitial pancreatitis with suspicion that the cause is due to possible choledocholelithiasis with also associated elevated LFTs. Total bilirubin on arrival was 2.7 improved to 1.5 today. Direct Bilirubin was normal. AST was normal on arrival and increased slightly today to 127. ALT on arrival was 69 and slightly increased today to 84. Alk-phos on arrival was 299 improved to 221 this morning. Patient's lipid profile was normal. Patient's lipase and amylase was normal. Continue monitoring the patient's symptoms. Appreciate input from GI and surgery Services. (2) Choledocholithiasis: Code(s): K80.50 - Calculus of bile duct without cholangitis or cholecystitis without obstruction Status: Acute Assessment and Plan: MRCP is ordered and GI has been consulted. 05/01/2019: Surgery ordered an MRCP to look further for choledocholelithiasis but the patient was unable to sit still for the MRI and was unable to be completed. I called Dr. Bueno and GI who would like to continue trending his liver enzymes in the morning and monitor his symptoms and possibly trying repeat another test tomorrow. The patient ate 50% of clear liquid diet last night and only sips of apple juice today. Dr. Bueno has ordered another MRCP for today, and the patient will be given IV Ativan 0.5 mg to see if this helps with his restlessness. The patient is not having any abdominal pain during my examination today. Will continue monitoring the patient's symptoms and how he tolerates a clear liquid diet and further input is appreciated from GI and surgery. (3) Hypothyroidism: Code(s): E03.9 - Hypothyroidism, unspecified Status: Chronic Assessment and Plan: The patient's TSH was 6.79 and free T4 was 0.67. [facility] and the last time is TSH was checked was November of 2018. At this time I will increase his levothyroxine to 112.5 daily and will have [facility] recheck his labs in 3 months. (4) Alzheimer's dementia: Qualifiers: Alzheimer's disease onset: unspecified onset Dementia behavioral disturbance: without behavioral disturbance Qualified Code(s): G30.9 - Alzheimer's disease, unspecified; F02.80 - Dementia in other diseases classified elsewhere without behavioral disturbance Code(s): G30.9 - Alzheimer's disease, unspecified; F02.80 - Dementia in other diseases classified elsewhere without behavioral disturbance Status: Chronic Assessment and Plan: Holding his Seroquel, Remeron and Aricept at this time. Restart medications once tolerating a regular diet again. We will continue monitoring his symptoms and see how he does with the diet and how his LFTs are in the morning. Continue holding his medications. (5) Bipolar disorder: Qualifiers: Active/Remission status: remission status unspecified Qualified Code(s): F31.9 - Bipolar disorder, unspecified Code(s): F31.9 - Bipolar disorder, unspecified Status: Chronic Assessment and Plan: Patient is stable at this time. All medications are on hold as well. Restart medications once tolerating a regular diet again. Seroquel is on hold but may give Zyprexa IM if the patient becomes aggressive. Remeron is on hold. (6) Seizures: Code(s):
[2019-05-02] MEDS: LORAZEPAM INJ 2 MG/ML VIAL 0.5 MG IV PUSH (09:50)
--- NOTE | 2019-05-02 09:58 | PM.PNGS ---
Progress Note: A&P Assessment and Plan (1) Acute pancreatitis: Qualifiers: Acute pancreatitis complication: unspecified Pancreatitis type: unspecified pancreatitis type Qualified Code(s): K85.90 - Acute pancreatitis without necrosis or infection, unspecified Code(s): K85.90 - Acute pancreatitis without necrosis or infection, unspecified Status: Acute Assessment and Plan: CT evidence of acute interstitial pancreatitis with suspicion that the cause is due to possible choledocholelithiasis with also associated elevated LFTs. Lipase/amylase normal. Apparently attempting MRCP again today. I spoke with the Hospitalist who will be also giving him Ativan to help with agitation prior to the test. Hopefully, he will be able to have this done today. Further plan of care will be deciphered following MRCP results. (2) Choledocholithiasis: Code(s): K80.50 - Calculus of bile duct without cholangitis or cholecystitis without obstruction Status: Acute (3) Alzheimer's dementia: Qualifiers: Alzheimer's disease onset: unspecified onset Dementia behavioral disturbance: without behavioral disturbance Qualified Code(s): G30.9 - Alzheimer's disease, unspecified; F02.80 - Dementia in other diseases classified elsewhere without behavioral disturbance Code(s): G30.9 - Alzheimer's disease, unspecified; F02.80 - Dementia in other diseases classified elsewhere without behavioral disturbance Status: Chronic (4) Bipolar disorder: Qualifiers: Active/Remission status: remission status unspecified Qualified Code(s): F31.9 - Bipolar disorder, unspecified Code(s): F31.9 - Bipolar disorder, unspecified Status: Chronic (5) Seizures: Code(s): R56.9 - Unspecified convulsions Status: Chronic Additional Plan Discussed the patient's case and plan of care with Dr. Bernstein. Subjective Subjective Date/Time Seen: 05/02/19 09:00 Patient reports: no new complaints Interval history: Patient seen and examined with no one at the bedside. Patient reports feeling tired today but no other complaints. Denies abdominal pain, nausea, or vomiting. Unsure when he last had a BM. MRCP was unsuccessful yesterday due to agitation and inability to follow commands while having the test. WBC down to 14,800 and patient afebrile. LFTs about the same today. Amylase normal and lipase remains normal today. Review of Systems Review of Systems: All systems reviewed & are unremarkable except as noted in HPI and below ROS unobtainable: other (difficult to obtain d/t severe dementia) Exam Const: General: no acute distress, alert and awake Orientation/consciousness: oriented to person, No oriented to place and No oriented to time GI: Inspection: normal to inspection and other (seems minimally distended today) GI Palp: Yes Soft to palpation, Yes Tenderness to palpation present (GI) (RLQ. No tenderness in upper abdomen with deep palpation.), No Guarding due to palpation present (GI) and No Rebound tenderness present Auscultation: normal bowel sounds Rectal Exam: deferred Skin: General skin exam: normal color Extrem: General: normal to inspection and no edema Psych: Attitude: cooperative (and calm) Objective Data Vital Signs Vital Signs: Vital Signs - 24 hr 05/01/19 14:00 05/01/19 16:00 05/01/19 20:00 Temperature 36.5 C Pulse Rate 78 77 82 Respiratory Rate 14 Blood Pressure 137/67 Pulse Oximetry 97 05/01/19 22:00 05/02/19 00:00 05/02/19 01:48 Temperature 37.2 C Pulse Rate 80 73 76 Respiratory Rate 18 Blood Pressure 131/67 Pulse Oximetry 97 05/02/19 04:00 05/02/19 06:00 Temperature 37.3 C Pulse Rate 72 72 Respiratory Rate 22 H Blood Pressure 133/76 Pulse Oximetry 95 Intake/Output Intake/Output: Intake & Output 04/29/19 04/30/19 05/01/19 05/02/19 23:59 23:59 23:59 23:59 Intake Total 1000 2300 1640 Output Total 600 600 650 Balance 400
[2019-05-02 14:00] VITALS: BP 127/66; PULSE 69; RESP 16; TEMP 36.1; O2SAT 95
[2019-05-02 21:46] VITALS: BP 130/71; PULSE 83; RESP 20; TEMP 36.5; O2SAT 97
[2019-05-03] VITALS (12 sets, daily range): BP systolic 97–142; BP diastolic 65–110; PULSE 22–102; RESP 16–95; TEMP 36.2–38.2; O2SAT 87–98
[2019-05-03 05:14] LABS: Basophils Percent Auto 0.4 % (0.2-1.2); Hematocrit 43.4 % (42.0-52.0); Hemoglobin 14.1 g/dL (14.0-18.0); Immature Granulocyte Percent A 0.9 % (0-0.5); Lymphocytes Absolute Auto 0.67 K/mm3 (0.9-3.2); Lymphocytes Percent Auto 5.9 % (18.3-44.2); Mean Corpuscular HGB Conc 32.5 g/dl (32-36); Mean Corpuscular Hemoglobin 30.6 pg (26-34); Mean Corpuscular Volume 94.1 fl (80-100); Mean Platelet Volume 10.4 fl (7.4-10.4); Monocytes Absolute Auto 0.9 K/mm3 (0.1-0.6); Monocytes Percent Auto 8.3 % (2.6-8.5); Neutrophils Absolute Auto 9.6 K/mm3 (1.3-6.7); Neutrophils Percent Auto 84.5 % (45.5-73.1); Platelet Count Result 209 k/mm3 (150-375); Red Blood Count 4.61 M/mm3 (4.6-6.20); Red Cell Distribution Width 14.4 % (11.5-14.5); White Blood Count 11.4 K/mm3 (4.5-10.0)
[2019-05-03 05:19] LABS: Alanine Aminotransferase 103 U/L (4-50); Albumin Level 2.4 g/dL (3.5-5.1); Alkaline Phosphatase 191 U/L (38-126); Aspartate Amino Transferase 147 U/L (17-59); Blood Urea Nitrogen 15 mg/dL (9-20); Calcium 6.9 mg/dL (8.4-10.2); Carbon Dioxide 23 mmol/L (22-30); Chloride 105 mmol/L (98-107); Estimated CRCL calculation 102 ml/min; Estimated Glomerular Filt Rate > 60; Glucose 90 mg/dL (75-110); Lipase 87 U/L (23-300); Potassium 3.3 mmol/L (3.4-5.0); Sodium 134 mmol/L (137-145)
[2019-05-03] MEDS: LEVOTHYROXINE SODIUM INJ 100 MCG/5 ML VIAL 56.25 MCG IV PUSH (06:21)
--- NOTE | 2019-05-03 07:53 | PM.IMPN ---
Progress Note: A&P Assessment and Plan (1) Acute pancreatitis: Qualifiers: Acute pancreatitis complication: unspecified Pancreatitis type: unspecified pancreatitis type Qualified Code(s): K85.90 - Acute pancreatitis without necrosis or infection, unspecified Code(s): K85.90 - Acute pancreatitis without necrosis or infection, unspecified Status: Acute Assessment and Plan: CT evidence of acute interstitial pancreatitis with suspicion that the cause is due to possible choledocholelithiasis with also associated elevated LFTs. MRCP was completed yesterday and showed Normal common bile duct without stones or stricture. Ill-defined pancreas with acute peripancreatic fluid collection. Although lipase is normal, imaging findings remain consistent with interstitial edematous pancreatitis, possibly related to gallstones that have since passed. T1 hyperintense fluid surrounding the pancreas may be proteinaceous or hemorrhagic. Total bilirubin on arrival was 2.7, and normalized to 1.0 today. Direct Bilirubin was normal. AST was normal on arrival and increased slightly today to 147. ALT on arrival was 69 and slightly increased today to 103 Alk-phos on arrival was 299 improved to 191 this morning. Patient's lipid profile was normal. Patient's lipase and amylase was normal. Plan is for surgery to preform a Laparoscopic Cholecystectomy today. Continue monitoring the patient's symptoms. Appreciate input from GI and surgery Services. (2) Choledocholithiasis: Code(s): K80.50 - Calculus of bile duct without cholangitis or cholecystitis without obstruction Status: Acute Assessment and Plan: MRCP is ordered and GI has been consulted. 05/02/2019: MRCP was completed showing Normal common bile duct without stones or stricture. Ill-defined pancreas with acute peripancreatic fluid collection. Although lipase is normal, imaging findings remain consistent with interstitial edematous pancreatitis, possibly related to gallstones that have since passed. T1 hyperintense fluid surrounding the pancreas may be proteinaceous or hemorrhagic. The patient is going to undergo a Laproscopic cholecystectomy today. The patient is not having any abdominal pain during my examination today. Will continue monitoring the patient's symptoms and how he tolerates a clear liquid diet and further input is appreciated from GI and surgery. (3) Hypothyroidism: Code(s): E03.9 - Hypothyroidism, unspecified Status: Chronic Assessment and Plan: The patient's TSH was 6.79 and free T4 was 0.67. The nurse called the care home and the last time is TSH was checked was November of 2018. At this time I will increase his levothyroxine to 112.5 daily and will have his care home recheck his labs in 3 months. (4) Alzheimer's dementia: Qualifiers: Alzheimer's disease onset: unspecified onset Dementia behavioral disturbance: without behavioral disturbance Qualified Code(s): G30.9 - Alzheimer's disease, unspecified; F02.80 - Dementia in other diseases classified elsewhere without behavioral disturbance Code(s): G30.9 - Alzheimer's disease, unspecified; F02.80 - Dementia in other diseases classified elsewhere without behavioral disturbance Status: Chronic Assessment and Plan: Holding his Seroquel, Remeron and Aricept at this time. Restart medications once tolerating a regular diet again. We will continue monitoring his symptoms and see how he does with the diet and how his LFTs are in the morning. Continue holding his medications. (5) Bipolar disorder: Qualifiers: Active/Remission status: remission status unspecified Qualified Code(s): F31.9 - Bipolar disorder, unspecified Code(s): F31.9 - Bipol
[2019-05-03] MEDS: BISACODYL 10 MG SUPPOSITORY RECTAL (09:30)
--- NOTE | 2019-05-03 10:18 | WPDANESEPPF ---
Anes - Initial Pre Proc Eval Procedure: Operation Date: 05/03/19 15:30 Proposed Procedures p Laparoscopic Cholecystectomy With Intraoperative Cholangiogram, Possible Open - Maynor Bernstein MD Date/Time: 05/03/19 10:18 Surgeon: Kaylyn Mcclain PA-C Pre Op Diagnosis: Pancreatitis, choledocolithiasis Patient Data Age: 73 Gender: M Height: 1.8 m Weight: 86.2 kg Last Vital Signs Temp 37.0 C 05/03/19 05:42 Pulse 81 05/03/19 05:42 Resp 20 05/03/19 05:42 BP 141/68 H 05/03/19 05:42 Pulse Ox 96 05/03/19 05:42 Allergies Allergy/AdvReac Type Severity Reaction Status Date / Time No Known Allergies Allergy Verified 04/17/19 17:28 Home Medications Medication Instructions Recorded Confirmed Type donepezil 10 mg PO HS 04/17/19 04/30/19 History folic acid 1 mg PO DAILY 04/17/19 04/30/19 History levothyroxine 100 mcg PO DAILY 04/17/19 04/30/19 History thiamine HCl (vitamin B1) [Vitamin 100 mg PO DAILY 04/17/19 04/30/19 History B-1] trihexyphenidyl 1 mg PO BID 04/17/19 04/30/19 History mirtazapine [Remeron] 7.5 mg PO HS 04/30/19 04/30/19 History quetiapine [Seroquel] 25 mg PO HS 04/30/19 04/30/19 History Laboratory Tests 05/02/19 05/03/19 05/03/19 11:40 04:55 04:55 WBC 11.4 K/mm3 H K/mm3 (4.5-10.0) RBC 4.61 M/mm3 M/mm3 (4.6-6.20) Hgb 14.1 g/dL g/dL (14.0-18.0) Hct 43.4 % % (42.0-52.0) MCV 94.1 fl fl (80-100) MCH 30.6 pg pg (26-34) MCHC 32.5 g/dl g/dl (32-36) RDW 14.4 % % (11.5-14.5) Plt Count 209 k/mm3 k/mm3 (150-375) MPV 10.4 fl fl (7.4-10.4) Immature Gran % (Auto) 0.9 % H % (0-0.5) Neut % (Auto) 84.5 % H % (45.5-73.1) Lymph % (Auto) 5.9 % L % (18.3-44.2) [place] % (Auto) 8.3 % % (2.6-8.5) Eos % (Auto) 0.0 % % (0-4.4) Baso % (Auto) 0.4 % % (0.2-1.2) Lymph # (Auto) 0.67 K/mm3 L K/mm3 (0.9-3.2) [place] # (Auto) 0.9 K/mm3 H K/mm3 (0.1-0.6) Eos # (Auto) 0.0 K/mm3 K/mm3 (0-0.3) Baso # (Auto) 0.0 K/mm3 K/mm3 (0.0-0.1) Abs Immat Gran (auto) 0.10 K/mm3 H K/mm3 (0.00-0.031) Absolute Neuts (auto) 9.6 K/mm3 H K/mm3 (1.3-6.7) Absolute Nucleated RBC 0.0 K/mm3 K/mm3 (0.0-0.012) Nucleated RBC % 0.0 % % (0.0-0.2) Sodium Potassium Chloride Carbon Dioxide BUN Creatinine Estim Creat Clear Calc Estimated GFR Glucose Calcium Total Bilirubin AST ALT Alkaline Phosphatase Total Protein Albumin Lipase Group B Strep Antigen Negative Blood Type A Positive Antibody Screen Negative 05/03/19 04:55 WBC RBC Hgb Hct MCV MCH MCHC RDW Plt Count MPV Immature Gran % (Auto) Neut % (Auto) Lymph % (Auto) [place] % (Auto) Eos % (Auto) Baso % (Auto) Lymph # (Auto) [place] # (Auto) Eos # (Auto) Baso # (Auto) Abs Immat Gran (auto) Absolute Neuts (auto) Absolute Nucleated RBC Nucleated RBC % Sodium 134 mmol/L L mmol/L (137-145) Potassium 3.3 mmol/L L mmol/L (3.4-5.0) Chloride 105 mmol/L mmol/L (98-107) Carbon Dioxide 23 mmol/L mmol/L (22-30) BUN 15 mg/dL mg/dL (9-20) Creatinine 0.60 mg/dL L mg/dL (0.7-1.3) Estim Creat Clear Calc 102 ml/min ml/min Estimated GFR > 60 (59 - ) Glucose 90 mg/dL mg/dL (75-110) Calcium 6.9 mg/dL L mg/dL (8.4-10.2) Total Bilirubin 1.0 mg/dL mg/dL (0.2-1.3) AST 147 U/L H U/L (17-59) ALT 103 U/L H U/L (4-50) Alkaline Phosphatase 191 U/L H U/L (38-1
[2019-05-03] MEDS: CHLORHEXIDINE GLUCONATE 4% SOL 120 ML BTL 1 APPLIC TOPICAL (10:26)
--- NOTE | 2019-05-03 10:28 | WPDGIPROGNO ---
Progress Note: A&P Additional Plan Patient is without specific complaints this morning. He has dementia. Physical exam reveals protuberant abdomen. No obvious localized discomfort. No masses appreciated. MRCP performed yesterday confirms pancreatitis. No evidence of CBD gallstones. Gallstones are noted in the gallbladder. Impression 1. Acute pancreatitis. Likely secondary to gallstones. Cholecystectomy plan today per surgery. 2. Gallstones. 3. Dementia. Plan is to await findings at time of cholecystectomy. Advanced diet slowly otherwise, When stable after surgery. Low-fat diet advised. Subjective Date/time seen: 05/03/19 10:28 Objective Data Vital Signs Vital Signs: Vital Signs - 24 hr 05/02/19 14:00 05/02/19 21:46 05/03/19 05:42 Temperature 36.1 C L 36.5 C 37.0 C Pulse Rate 69 83 81 Respiratory Rate 16 20 20 Blood Pressure 127/66 130/71 141/68 H Pulse Oximetry 95 97 96 Intake/Output Intake/Output: Intake & Output 04/30/19 05/01/19 05/02/19 05/03/19 23:59 23:59 23:59 23:59 Intake Total 1000 2300 4120 0 Output Total 600 600 650 Balance 400 1700 3470 0 Meds/Results Medications: Active Medications Generic Name Dose Route Start Last Admin Trade Name Freq PRN Reason Stop Dose Admin Bisacodyl 10 mg 05/02/19 07:58 05/03/19 09:30 Dulcolax Suppository RECTAL 10 mg QAM PRN Administration Constipation Fentanyl Citrate 25 mcg 05/03/19 10:17 Sublimaze IV PUSH Q2M PRN Pain Hydromorphone HCl 0.25 mg 05/03/19 10:17 Dilaudid Inj IV PUSH Q5M PRN Pain Sodium Chloride 1,000 mls @ 125 mls/hr 04/30/19 15:30 05/03/19 06:22 Normal Saline Iv IV CONT 125 mls/hr .Q8H LUPE Infusion Cefazolin Sodium 2 gm in 50 mls @ 100 mls/hr 05/03/19 12:30 Ancef 2 Gm/D5w 50 Ml IVPB 05/03/19 12:59 ONCE ONE Potassium Chloride 500 mls @ 125 mls/hr 05/03/19 08:01 05/03/19 09:22 Kcl 40 Meq/D5w 500 Ml Peripheral IVPB 05/03/19 12:00 125 mls/hr ONCE ONE Administration Lactated Ringer's 1,000 mls @ 30 mls/hr 05/03/19 10:20 Lr - Lactated Ringers Iv IV CONT .Q24H LUPE Lactated Ringer's 1,000 mls @ 30 mls/hr 05/03/19 10:20 Lr - Lactated Ringers Iv IV CONT .Q24H LUPE Levothyroxine Sodium 56.25 mcg 05/02/19 06:30 05/03/19 06:21 Levothyroxine Sodium Inj IV PUSH 56.25 mcg DAILY@0630 LUPE Administration Lorazepam 0.5 mg 04/30/19 21:05 05/02/19 09:50 Ativan Inj IV PUSH 0.5 mg Q6H PRN Administration Anxiety Morphine Sulfate 4 mg 04/30/19 15:28 Morphine Sulfate Inj IV PUSH Q2H PRN Pain Rated 7-10 Ondansetron HCl 4 mg 04/30/19 15:28 Zofran Inj IV PUSH Q4H PRN Nausea Ondansetron HCl 4 mg 05/03/19 10:17 Zofran Inj IV PUSH ONCE PRN Nausea Oxycodone HCl 5 mg 05/03/19 10:17 Roxicodone Ir Tablet PO ONCE PRN Pain Radiology Results: ITS Impressions Abdomen/Pelvis CT 04/30/19 13:46 IMPRESSION: 1. Findings consistent with interstitial edematous pancreatitis with acute peripancreatic fluid collection, possibly related to choledocholithiasis. 2. Indeterminate soft tissue density lesion of the right kidney which could reflect proteinaceous cyst or solid neoplasm. Consider nonemergent ultrasound. MRCP 05/02/19 11:49 IMPRESSION: 1. Ill-defined pancreas with acute peripancreatic fluid collection. Although lipase is normal, imaging findings remain consistent with interstitial edematous pancreatitis, possibly related to gallstones that have since passed. T1 hyperintense fluid surrounding the pancreas may be proteinaceous or hemorrhagic. 2. Normal common bile duct without stones or stricture. 3. Cholelithiasis including stones in the gallbladder neck. 4. Hemorrhagic or proteinaceous cyst corresponding to the right kidney lesion in question on the comparison CT. Labs Labs: Laboratory Results - last 24 hr 05/02/19 05/03/19 05/03/19
[2019-05-03] MEDS: SODIUM CHLORIDE 0.9% IV 1,000 ML 125 ML IV CONT ×2 (12:43→21:40)
--- NOTE | 2019-05-03 13:22 | P.HPUP_ITS ---
History and Physical Update Update Date/Time: 05/03/19 13:22 History and Physical has been reviewed, including an updated exam of the patient. There are changes in the patient's condition. Please see patient's progress notes from the last few days and the MRCP report from yesterday. We know he has stones in the gallbladder. No obvious stones in the common duct yesterday. Have discussed with the patient and subsequently his sister regarding proceeding with a laparoscopic cholecystectomy, possible inter- operative cholangiogram, possible open cholecystectomy. Risks, benefits, and alternatives of this were discussed with the patient's sister who is closest of Kin have been discussed and questions answered. Patient agrees to proceed with procedure.
[2019-05-03] MEDS: LACTATED RINGERS 1,000 ML 30 ML IV CONT ×2 (14:00→18:30)
[2019-05-03] MEDS: ceFAZolin 2 GM/D5W 50 ML 2 GM/50 ML BAG IVPB (14:52)
[2019-05-03] MEDS: BUPIVACAINE/EPINEPHRINE 0.5% 30 ML VIAL INFILTRATE (15:17)
--- NOTE | 2019-05-03 18:41 | PM.PROC ---
Procedure Note - Detailed Date of procedure: 05/03/19 Pre-op diagnosis: Pancreatitis, choledocolithiasis Post-op diagnosis: other (Acute cholecystitis with cholelithiasis 2. Recent pancreatitis 3. Possible recent choledocholithiasis) Procedure performed: 1. Laparoscopic cholecystectomy Description of procedure: Procedure Details: Patient was seen preoperatively in the holding area and risks, benefits and alternatives confirmed. Patient was taken to the operating room and general anesthesia was induced. A time out was then preformed with the surgery team confirming patient and site of surgery. The abdomen was prepped and draped in the usual sterile fashion. Incision was made just below the umbilicus. Two stay sutures of O- Vicryl were used to elevate the mid-line fascia beneath the umbilicus and a small incision was made under direct vision. The peritoneum was entered. The 12 mm Adkins cannula was introduced under direct vision. First under low flow and then under high flow the abdomen was insufflated with carbon dioxide never exceeding a pressure of 14. Three 5 mm trocars were then introduced under direct vision. The following trocars were introduced under direct vision: a 12 mm in the epigastrium and two 5 mm trocars along the right costal margin. Upon entering the abdomen the gallbladder could not even be seen. Careful dissection revealed that the gallbladder was rotated such that its top was densely inflammatory early in adhesed to the right lateral abdominal wall and the omentum was completely covering the inferior surface of it. The 1st 1/2 hour was spent carefully dissecting this off of the undersurface of the gallbladder retracted the gallbladder cephalad so that we could work on removal of the gallbladder. A carefully did this with blunt sharp dissection. Even the triangle of colo was quite densely adhered and structures were difficult to see. The gall bladder was grasped and the cystic duct and artery were dissected free and clipped with an 5 mm endo-clip natural resources technician. Although I tried twice in 2 to for structures was never able to obtain a operative cholangiogram. First structure I believe was the cystic artery as it bled more prominently after we dissected it more probably was partially clotted due to the inflammatory nature of the gallbladder. The second structure was right at the neck of the gallbladder and subsequently found the cystic duct right next to it overnight able to get a cholangiogram catheter into it. Therefore the patient's side was clipped with 2 clips and this structure will be the 1 with the clips slightly crossed. Slightly more cephalad there are 2 clips on the cystic artery. The catheter was removed from the abdomen. The gall bladder was then carefully removed using electrocautery as we worked up the back of the gallbladder we ran into no other ductal structures that I could tell. One separate tubular structure on the back of the gallbladder appeared to be a posterior branch of the cystic artery and this was at least a quarter of the way up the back of the gallbladder. Once the gallbladder was dissected off its bed in the liver which was difficult because of the size the gallbladder and its thick inflammatory peel we then removed the gallbladder in a endobag via the umbilical incision. I did enlarge the fascial defect at the umbilicus vertically to approximately 2.5 cm and the gallbladder came out fairly easily. Following this we carefully inspected the underside of the liver and the area of the dissection. There was no obvious bile leak. There was no obvious continuing bleeding. There was an continuing continuing oozing. Because of possibility of leakage at the cystic duct and from the gallbladder bed a 10 flat ODETTE drain was passed through the 10 mm port [facility] and pulled out through the most lateral 5 mm port and the drain placed just beneath the right lobe of the liver with the and of th
--- NOTE | 2019-05-03 18:43 | SUR.PHASEI ---
1843 - dr. perry aware of pt's resp assessment. no orders received at this time.
--- NOTE | 2019-05-03 19:08 | SUR.PHASEI ---
1905 - dr. perry at bedside assessing pt's respiratory status. exp wheezes noted and order received.
[2019-05-03] MEDS: ALBUTEROL SULFATE NEB 2.5 MG/3 ML INH 1.25 MG INHALATION (19:16)
--- NOTE | 2019-05-03 19:19 | SUR.PHASEI ---
1919 - pt joe breathing treatment well.
[2019-05-03] MEDS: SENNA/DOCUSATE SODIUM TABLET 2 TAB PO (21:40)
[2019-05-04 02:00] VITALS: BP 101/60; PULSE 82; RESP 22; TEMP 36.2; O2SAT 95
[2019-05-04] MEDS: LEVOTHYROXINE SODIUM INJ 100 MCG/5 ML VIAL 56.25 MCG IV PUSH (05:32)
[2019-05-04] MEDS: SODIUM CHLORIDE 0.9% IV 1,000 ML 125 ML IV CONT ×2 (05:35→17:25)
[2019-05-04 05:43] LABS: Basophils Percent Auto 0.4 % (0.2-1.2); Hematocrit 42.1 % (42.0-52.0); Hemoglobin 13.5 g/dL (14.0-18.0); Immature Granulocyte Absolute 0.06 K/mm3 (0.00-0.031); Immature Granulocyte Percent A 0.6 % (0-0.5); Lymphocytes Absolute Auto 0.62 K/mm3 (0.9-3.2); Lymphocytes Percent Auto 5.8 % (18.3-44.2); Mean Corpuscular HGB Conc 32.1 g/dl (32-36); Mean Corpuscular Hemoglobin 30.9 pg (26-34); Mean Corpuscular Volume 96.3 fl (80-100); Mean Platelet Volume 10.3 fl (7.4-10.4); Monocytes Absolute Auto 0.8 K/mm3 (0.1-0.6); Monocytes Percent Auto 7.4 % (2.6-8.5); Neutrophils Absolute Auto 9.1 K/mm3 (1.3-6.7); Neutrophils Percent Auto 85.8 % (45.5-73.1); Platelet Count Result 228 k/mm3 (150-375); Red Blood Count 4.37 M/mm3 (4.6-6.20); Red Cell Distribution Width 14.6 % (11.5-14.5); White Blood Count 10.7 K/mm3 (4.5-10.0)
[2019-05-04 06:00] VITALS: BP 113/65; PULSE 81; RESP 22; TEMP 36.6; O2SAT 94
[2019-05-04 06:01] LABS: Alanine Aminotransferase 86 U/L (4-50); Albumin Level 2.4 g/dL (3.5-5.1); Alkaline Phosphatase 171 U/L (38-126); Aspartate Amino Transferase 113 U/L (17-59); Bilirubin,Total 0.9 mg/dL (0.2-1.3); Blood Urea Nitrogen 16 mg/dL (9-20); Carbon Dioxide 26 mmol/L (22-30); Chloride 102 mmol/L (98-107); Estimated CRCL calculation 79 ml/min; Estimated Glomerular Filt Rate > 60; Glucose 104 mg/dL (75-110); Magnesium 2.2 mg/dL (1.6-2.3); Potassium 3.7 mmol/L (3.4-5.0); Sodium 136 mmol/L (137-145)
--- NOTE | 2019-05-04 08:13 | WPDGIPROGNO ---
Progress Note: A&P Additional Plan Patient alert. Remains in bed. Status post lap choly yesterday. Surgical findings noted. Cholecystitis acute and chronic. Common bile duct was clear. Patient now status post cholecystectomy. Physical exam with bandage surgical site. Impression status post cholecystectomy. Recent acute cholecystitis. Resolving pancreatitis Plan as per surgical service. Advance diet per their direction. Subjective Date/time seen: 05/04/19 08:13 Objective Data Vital Signs Vital Signs: Vital Signs - 24 hr 05/03/19 13:30 05/03/19 13:55 05/03/19 18:30 Temperature 36.7 C 37.9 C H 38.2 C H Pulse Rate 79 88 102 H Respiratory Rate 18 18 23 H Blood Pressure 117/65 142/76 H 139/110 H Pulse Oximetry 98 98 92 05/03/19 18:45 05/03/19 19:00 05/03/19 19:15 Temperature 37.3 C Pulse Rate 93 87 78 Respiratory Rate 20 16 18 Blood Pressure 112/71 106/73 108/74 Pulse Oximetry 96 97 96 05/03/19 19:16 05/03/19 19:28 05/03/19 19:40 Temperature 36.6 C Pulse Rate 82 85 22 L Respiratory Rate 16 18 95 H Blood Pressure 114/91 H Pulse Oximetry 94 87 L 05/03/19 19:55 05/03/19 21:25 05/04/19 02:00 Temperature 36.4 C 36.2 C L 36.2 C L Pulse Rate 22 L 22 L 82 Respiratory Rate 94 H 90 H 22 H Blood Pressure 97/68 L 105/65 101/60 Pulse Oximetry 88 L 94 95 05/04/19 06:00 Temperature 36.6 C Pulse Rate 81 Respiratory Rate 22 H Blood Pressure 113/65 Pulse Oximetry 94 Intake/Output Intake/Output: Intake & Output 05/01/19 05/02/19 05/03/19 05/04/19 23:59 23:59 23:59 23:59 Intake Total 2300 4120 2700 1150 Output Total 752 519 3046 280 Balance 1700 3470 1675 870 Meds/Results Medications: Active Medications Generic Name Dose Route Start Last Admin Trade Name Freq PRN Reason Stop Dose Admin Acetaminophen 500 mg 05/03/19 19:30 Tylenol Tablet PO Q6H PRN Mild Pain (1-3) or Fever Hydrocodone Bitart/Acetaminophen 1 tab 05/03/19 19:30 [place] 5-325 Mg PO Q4H PRN Pain Rated 4-6 Hydrocodone Bitart/Acetaminophen 1 tab 05/03/19 19:30 [place] 7.5-325 Mg PO Q4H PRN Pain Rated 7-10 Bisacodyl 10 mg 05/02/19 07:58 05/03/19 09:30 Dulcolax Suppository RECTAL 10 mg QAM PRN Administration Constipation Diphenhydramine HCl 25 mg 05/03/19 19:30 Benadryl Inj IV PUSH Q6H PRN Itching Enoxaparin Sodium 40 mg 05/04/19 09:00 Lovenox SUB-Q DAILY LUPE Sodium Chloride 1,000 mls @ 125 mls/hr 04/30/19 15:30 05/04/19 05:35 Normal Saline Iv IV CONT 125 mls/hr .Q8H LUPE Administration Piperacillin/Tazobactam/Dextrose 3.375 gm in 50 mls @ 100 mls/hr 05/03/19 20:00 05/04/19 06:10 Zosyn 3.375 Gm/D5w 50ml Pm IVPB Infused Q6H LUPE Infusion Levothyroxine Sodium 56.25 mcg 05/02/19 06:30 05/04/19 05:32 Levothyroxine Sodium Inj IV PUSH 56.25 mcg DAILY@0630 LUPE Administration Lorazepam 0.5 mg 04/30/19 21:05 05/02/19 09:50 Ativan Inj IV PUSH 0.5 mg Q6H PRN Administration Anxiety Morphine Sulfate 4 mg 04/30/19 15:28 Morphine Sulfate Inj IV PUSH Q2H PRN Pain Rated 7-10 Morphine Sulfate 2 mg 05/03/19 19:30 Morphine Sulfate Inj IV PUSH Q2H PRN Pain Rated 4-6 Naloxone HCl 0.1 mg 05/03/19 19:30 Narcan IV PUSH Q2M PRN Opiate Reversal Ondansetron HCl 4 mg 04/30/19 15:28 Zofran Inj IV PUSH Q4H PRN Nausea Senna/Docusate Sodium 2 tab 05/03/19 21:00 05/03/19 21:40 Senokot S PO 2 tab HS LUPE Administration Radiology Results: ITS Impressions Abdomen/Pelvis CT 04/30/19 13:46 IMPRESSION: 1. Findings consistent with interstitial edematous pancreatitis with acute peripancreatic fluid collection, possibly related to choledocholithiasis. 2. Indeterminate soft tissue density lesion of the right kidney which could reflect proteinaceous cyst or solid neoplasm. Consider nonemergent ultrasound. MRCP 05/02/19 11:49 IMP
--- NOTE | 2019-05-04 08:13 | WPDANESPN ---
Anes - Prog Note Post-Op Date/Time: 05/04/19 08:13 Cardiovascular status: normal Respiratory status: normal Airway patency: baseline Mental status: baseline Post-Op hydration status: normal Vital Signs: Last Vital Signs Temp 36.6 C 05/04/19 06:00 Pulse 81 05/04/19 06:00 Resp 22 H 05/04/19 06:00 BP 113/65 05/04/19 06:00 Pulse Ox 94 05/04/19 06:00 I/O: Intake & Output 05/03/19 05/04/19 05/04/19 23:59 07:59 15:59 Intake Total 1150 1150 Output Total 1025 280 Balance 125 870 Laboratory Tests 05/04/19 05:07 05/04/19 05:07 05/04/19 05/04/19 05:07 05:07 WBC 10.7 H RBC 4.37 L Hgb 13.5 L Hct 42.1 MCV 96.3 MCH 30.9 MCHC 32.1 RDW 14.6 H Plt Count 228 MPV 10.3 Immature Gran % (Auto) 0.6 H Neut % (Auto) 85.8 H Lymph % (Auto) 5.8 L [place] % (Auto) 7.4 Eos % (Auto) 0.0 Baso % (Auto) 0.4 Lymph # (Auto) 0.62 L [place] # (Auto) 0.8 H Eos # (Auto) 0.0 Baso # (Auto) 0.0 Abs Immat Gran (auto) 0.06 H Absolute Neuts (auto) 9.1 H Absolute Nucleated RBC 0.0 Nucleated RBC % 0.0 Sodium 136 L Potassium 3.7 Chloride 102 Carbon Dioxide 26 BUN 16 Creatinine 0.80 Estim Creat Clear Calc 79 Estimated GFR > 60 Glucose 104 Calcium 7.0 L Magnesium 2.2 Total Bilirubin 0.9 AST 113 H ALT 86 H Alkaline Phosphatase 171 H Total Protein 6.0 L Albumin 2.4 L Post-procedural complaints: none Patient Feedback: Patient satisfied with anesthetic care.
[2019-05-04] MEDS: ENOXAPARIN 40 MG/0.4 ML SYRINGE SUB-Q (08:48)
[2019-05-04 10:00] VITALS: BP 127/73; PULSE 82; RESP 15; TEMP 36.8; O2SAT 94
[2019-05-04 14:00] VITALS: BP 139/71; PULSE 85; RESP 16; TEMP 36.9; O2SAT 98
--- NOTE | 2019-05-04 14:22 | PM.IMPN ---
Progress Note: A&P Assessment and Plan (1) Choledocholithiasis: Code(s): K80.50 - Calculus of bile duct without cholangitis or cholecystitis without obstruction Status: Acute Assessment and Plan: MRCP is ordered and GI has been consulted. 05/02/2019: MRCP was completed showing Normal common bile duct without stones or stricture. Ill-defined pancreas with acute peripancreatic fluid collection. Although lipase is normal, imaging findings remain consistent with interstitial edematous pancreatitis, possibly related to gallstones that have since passed. T1 hyperintense fluid surrounding the pancreas may be proteinaceous or hemorrhagic. 05/03/2019: The patient went for laproscopic cholecystectomy by Dr. Bernstein. He had a severely inflamed gallbladder which was densely adhered with inflammatory adhesions to the right lateral abdominal wall just inferior to the edge of the right lobe of the liver. Dr. Bernstein stated appeared to be severely acute and probable chronic cholecystitis. The patient was started on IV Zosyn after his laparoscopic surgery. Will continue monitor antibiotics and see how he does over the next few days. Today, is postop day #1. The patients leukocytosis is improving, afebrile, nontachycardic, normal blood pressure, normal oxygenation and respiratory rate. Patient's liver enzymes are improving postop. Will continue monitoring the patient's symptoms and appreciate general surgery's recommendations. (2) Acute pancreatitis: Qualifiers: Acute pancreatitis complication: unspecified Pancreatitis type: unspecified pancreatitis type Qualified Code(s): K85.90 - Acute pancreatitis without necrosis or infection, unspecified Code(s): K85.90 - Acute pancreatitis without necrosis or infection, unspecified Status: Acute Assessment and Plan: CT evidence of acute interstitial pancreatitis with suspicion that the cause is due to possible choledocholelithiasis with also associated elevated LFTs. MRCP was completed yesterday and showed Normal common bile duct without stones or stricture. Ill-defined pancreas with acute peripancreatic fluid collection. Although lipase is normal, imaging findings remain consistent with interstitial edematous pancreatitis, possibly related to gallstones that have since passed. T1 hyperintense fluid surrounding the pancreas may be proteinaceous or hemorrhagic. Total bilirubin on arrival was 2.7, and has since normalized. Liver enzymes are improving since surgery Patient's lipid profile was normal. Patient's lipase and amylase was normal. Plan is for surgery to preform a Laparoscopic Cholecystectomy today. Continue monitoring the patient's symptoms. Appreciate input from GI and surgery Services. (3) Urinary retention: Code(s): R33.9 - Retention of urine, unspecified Status: Acute Assessment and Plan: I was informed that the patient had been retaining some urine overnight. The patient refused to be straight cathed at that time. I will start Flomax to see if this helps with his urinary retention. We will continue monitoring his urine output and bladder scanning as needed. We may need to place a Mejia catheter if he is still retaining. (4) Hypothyroidism: Code(s): E03.9 - Hypothyroidism, unspecified Status: Chronic Assessment and Plan: The patient's TSH was 6.79 and free T4 was 0.67. The nurse called the long term and the last time is TSH was checked was November of 2018. At this time I will increase his levothyroxine to 112.5 daily and will have his long term recheck his labs in 3 months. (5) Alzheimer's dementia: Qualifiers: Alzheimer's disease onset: unspecified onset Dementia behavioral disturbance: without behavioral dist
--- NOTE | 2019-05-04 14:46 | PM.PNGS ---
Progress Note: A&P Assessment and Plan (1) Cholelithiasis with acute on chronic cholecystitis without biliary obstruction: Code(s): K80.12 - Calculus of gallbladder with acute and chronic cholecystitis without obstruction Status: Acute Assessment and Plan: doing well on postop day 1. Continue to monitor drain output. Possibly remove drain tomorrow and able to be discharged if improving. (2) Acute pancreatitis: Qualifiers: Acute pancreatitis complication: unspecified Pancreatitis type: unspecified pancreatitis type Qualified Code(s): K85.90 - Acute pancreatitis without necrosis or infection, unspecified Code(s): K85.90 - Acute pancreatitis without necrosis or infection, unspecified Status: Acute Subjective Subjective Date/Time Seen: 05/04/19 14:46 Patient reports: feels better, pain is less, tolerating a regular diet and afebrile Interval history: Patient demented and cannot give much history. Does not know why he is in the hospital. Exam GI: Inspection: incision ( Clean and dry) and other ( ODETTE drain serosanguineous) GI Palp: Yes Soft to palpation, No Tenderness to palpation present (GI) and No Guarding due to palpation present (GI) Percussion: Yes normal to percussion Auscultation: normal bowel sounds Objective Data Vital Signs Vital Signs: Vital Signs - 24 hr 05/03/19 18:30 05/03/19 18:45 05/03/19 19:00 Temperature 38.2 C H Pulse Rate 102 H 93 87 Respiratory Rate 23 H 20 16 Blood Pressure 139/110 H 112/71 106/73 Pulse Oximetry 92 96 97 05/03/19 19:15 05/03/19 19:16 05/03/19 19:28 Temperature 37.3 C Pulse Rate 78 82 85 Respiratory Rate 18 16 18 Blood Pressure 108/74 Pulse Oximetry 96 94 05/03/19 19:40 05/03/19 19:55 05/03/19 21:25 Temperature 36.6 C 36.4 C 36.2 C L Pulse Rate 22 L 22 L 22 L Respiratory Rate 95 H 94 H 90 H Blood Pressure 114/91 H 97/68 L 105/65 Pulse Oximetry 87 L 88 L 94 05/04/19 02:00 05/04/19 06:00 05/04/19 10:00 Temperature 36.2 C L 36.6 C 36.8 C Pulse Rate 82 81 82 Respiratory Rate 22 H 22 H 15 Blood Pressure 101/60 113/65 127/73 Pulse Oximetry 95 94 94 Intake/Output Intake/Output: Intake & Output 05/01/19 05/02/19 05/03/19 05/04/19 23:59 23:59 23:59 23:59 Intake Total 2300 4120 2700 1540 Output Total 466 043 6702 280 Balance 1700 3470 1675 1260 Meds/Results Medications: Active Medications Generic Name Dose Route Start Last Admin Trade Name Freq PRN Reason Stop Dose Admin Acetaminophen 500 mg 05/03/19 19:30 Tylenol Tablet PO Q6H PRN Mild Pain (1-3) or Fever Hydrocodone Bitart/Acetaminophen 1 tab 05/03/19 19:30 [place] 5-325 Mg PO Q4H PRN Pain Rated 4-6 Hydrocodone Bitart/Acetaminophen 1 tab 05/03/19 19:30 [place] 7.5-325 Mg PO Q4H PRN Pain Rated 7-10 Bisacodyl 10 mg 05/02/19 07:58 05/03/19 09:30 Dulcolax Suppository RECTAL 10 mg QAM PRN Administration Constipation Diphenhydramine HCl 25 mg 05/03/19 19:30 Benadryl Inj IV PUSH Q6H PRN Itching Enoxaparin Sodium 40 mg 05/04/19 09:00 05/04/19 08:48 Lovenox SUB-Q 40 mg DAILY LUPE Administration Sodium Chloride 1,000 mls @ 125 mls/hr 04/30/19 15:30 05/04/19 05:35 Normal Saline Iv IV CONT 125 mls/hr .Q8H LUPE Administration Piperacillin/Tazobactam/Dextrose 3.375 gm in 50 mls @ 100 mls/hr 05/03/19 20:00 05/04/19 09:19 Zosyn 3.375 Gm/D5w 50ml Pm IVPB Infused Q6H LUPE Infusion Levothyroxine Sodium 56.25 mcg 05/02/19 06:30 05/04/19 05:32 Levothyroxine Sodium Inj IV PUSH 56.25 mcg DAILY@0630 LUPE Administration Lorazepam 0.5 mg 04/30/19 21:05 05/02/19 09:50 Ativan Inj IV PUSH 0.5 mg Q6H PRN Administration Anxiety Morphine Sulfate 4 mg 04/30/19 15:28 Morphine Sulfate Inj IV PUSH Q2H PRN Pain Rated 7-10 Morphine Sulfate 2 mg 05/03/19 19:30 Morphine Sulfate Inj IV PUSH Q2H PRN Pain Rate
[2019-05-04 16:53] LABS: Lipase 146 U/L (23-300)
[2019-05-04] MEDS: TAMSULOSIN HCL 0.4 MG CAPSULE PO (17:26)
[2019-05-04 18:00] VITALS: BP 146/80; PULSE 89; RESP 16; TEMP 36.9; O2SAT 94
[2019-05-04] MEDS: SENNA/DOCUSATE SODIUM TABLET 2 TAB PO (19:59)
[2019-05-04 20:00] VITALS: BP 128/66; PULSE 92; RESP 24; TEMP 36.4; O2SAT 98
[2019-05-05] MEDS: SODIUM CHLORIDE 0.9% IV 1,000 ML 125 ML IV CONT ×2 (02:51→23:30)
[2019-05-05] MEDS: LEVOTHYROXINE SODIUM INJ 100 MCG/5 ML VIAL 56.25 MCG IV PUSH (04:42)
[2019-05-05 05:42] VITALS: BP 119/65; PULSE 60; RESP 22; TEMP 37.2; O2SAT 92
[2019-05-05 06:09] LABS: Basophils Percent Auto 0.1 % (0.2-1.2); Eosinophils Percent Auto 0.4 % (0-4.4); Hemoglobin 13.3 g/dL (14.0-18.0); Immature Granulocyte Absolute 0.07 K/mm3 (0.00-0.031); Immature Granulocyte Percent A 0.6 % (0-0.5); Lymphocytes Absolute Auto 0.71 K/mm3 (0.9-3.2); Lymphocytes Percent Auto 6.5 % (18.3-44.2); Mean Corpuscular HGB Conc 32.4 g/dl (32-36); Mean Corpuscular Hemoglobin 30.4 pg (26-34); Mean Corpuscular Volume 93.6 fl (80-100); Mean Platelet Volume 10.2 fl (7.4-10.4); Monocytes Absolute Auto 0.7 K/mm3 (0.1-0.6); Monocytes Percent Auto 6.6 % (2.6-8.5); Neutrophils Absolute Auto 9.3 K/mm3 (1.3-6.7); Neutrophils Percent Auto 85.8 % (45.5-73.1); Platelet Count Result 237 k/mm3 (150-375); Red Blood Count 4.38 M/mm3 (4.6-6.20); Red Cell Distribution Width 14.6 % (11.5-14.5); White Blood Count 10.9 K/mm3 (4.5-10.0)
[2019-05-05 06:19] LABS: Alanine Aminotransferase 66 U/L (4-50); Albumin Level 2.3 g/dL (3.5-5.1); Alkaline Phosphatase 147 U/L (38-126); Aspartate Amino Transferase 91 U/L (17-59); Bilirubin,Total 0.7 mg/dL (0.2-1.3); Blood Urea Nitrogen 17 mg/dL (9-20); Calcium 6.9 mg/dL (8.4-10.2); Carbon Dioxide 24 mmol/L (22-30); Chloride 101 mmol/L (98-107); Estimated CRCL calculation 102 ml/min; Estimated Glomerular Filt Rate > 60; Glucose 107 mg/dL (75-110); Potassium 3.2 mmol/L (3.4-5.0); Sodium 133 mmol/L (137-145)
[2019-05-05] MEDS: ENOXAPARIN 40 MG/0.4 ML SYRINGE SUB-Q (08:41)
[2019-05-05] MEDS: TAMSULOSIN HCL 0.4 MG CAPSULE PO (08:41)
--- NOTE | 2019-05-05 09:18 | PM.IMPN ---
Progress Note: A&P Assessment and Plan (1) Choledocholithiasis: Code(s): K80.50 - Calculus of bile duct without cholangitis or cholecystitis without obstruction Status: Acute Assessment and Plan: MRCP is ordered and GI has been consulted. 05/02/2019: MRCP was completed showing Normal common bile duct without stones or stricture. Ill-defined pancreas with acute peripancreatic fluid collection. Although lipase is normal, imaging findings remain consistent with interstitial edematous pancreatitis, possibly related to gallstones that have since passed. T1 hyperintense fluid surrounding the pancreas may be proteinaceous or hemorrhagic. 05/03/2019: The patient went for laproscopic cholecystectomy by Dr. Bernstein. He had a severely inflamed gallbladder which was densely adhered with inflammatory adhesions to the right lateral abdominal wall just inferior to the edge of the right lobe of the liver. Dr. Bernstein stated appeared to be severely acute and probable chronic cholecystitis. The patient was started on IV Zosyn after his laparoscopic surgery. Will continue monitor antibiotics and see how he does over the next few days. Today, is postop day #2. The patients leukocytosis is stable at 10,900. He is otherwise afebrile, nontachycardic, normal blood pressure, normal oxygenation and respiratory rate. Patient's liver enzymes are improving postop. Continue monitoring him advance his diet and ensure he is having bowel movements, surgery gave Milk of magnesia. Will continue monitoring the patient's symptoms and appreciate general surgery's recommendations. (2) Acute pancreatitis: Qualifiers: Acute pancreatitis complication: unspecified Pancreatitis type: unspecified pancreatitis type Qualified Code(s): K85.90 - Acute pancreatitis without necrosis or infection, unspecified Code(s): K85.90 - Acute pancreatitis without necrosis or infection, unspecified Status: Acute Assessment and Plan: CT evidence of acute interstitial pancreatitis with suspicion that the cause is due to possible choledocholelithiasis with also associated elevated LFTs. MRCP was completed yesterday and showed Normal common bile duct without stones or stricture. Ill-defined pancreas with acute peripancreatic fluid collection. Although lipase is normal, imaging findings remain consistent with interstitial edematous pancreatitis, possibly related to gallstones that have since passed. T1 hyperintense fluid surrounding the pancreas may be proteinaceous or hemorrhagic. Total bilirubin on arrival was 2.7, and has since normalized. Liver enzymes are improving since surgery Patient's lipid profile was normal. Patient's lipase and amylase was normal. Continue monitoring the patient's symptoms. Appreciate input from GI and surgery Services. (3) Urinary retention: Code(s): R33.9 - Retention of urine, unspecified Status: Acute Assessment and Plan: I was informed that the patient had been retaining some urine overnight. The patient refused to be straight cathed. I will start Flomax to see if this helps with his urinary retention. We will continue monitoring his urine output and bladder scanning as needed. We may need to place a Mejia catheter if he is still retaining. (4) Hypothyroidism: Code(s): E03.9 - Hypothyroidism, unspecified Status: Chronic Assessment and Plan: The patient's TSH was 6.79 and free T4 was 0.67. The nurse called the shelter and the last time is TSH was checked was November of 2018. At this time I will increase his levothyroxine to 112.5 daily and will have his shelter recheck his labs in 3 months. (5) Alzheimer's dementia: Qualifiers: Alzheimer's disease onset: unspecified onset De
[2019-05-05 10:00] VITALS: BP 125/66; PULSE 82; RESP 22; TEMP 37.2; O2SAT 96
--- NOTE | 2019-05-05 11:27 | PM.PNGS ---
Progress Note: A&P Assessment and Plan (1) Cholelithiasis with acute on chronic cholecystitis without biliary obstruction: Code(s): K80.12 - Calculus of gallbladder with acute and chronic cholecystitis without obstruction Status: Acute Assessment and Plan: Will remove ODETTE drain today. Stimulate bowels with milk of magnesia. Surgically stable, if bowels move could possibly discharge Subjective Subjective Date/Time Seen: 05/05/19 11:27 Patient tolerating diet. Appears a little distended. Denies nausea. ODETTE drain has had some leakage around drain. Exam GI: Inspection: distended, incision (Intact) and other (ODETTE drain serosanguineous) GI Palp: No Tenderness to palpation present (GI) Objective Data Vital Signs Vital Signs: Vital Signs - 24 hr 05/04/19 14:00 05/04/19 18:00 05/04/19 20:00 Temperature 36.9 C 36.9 C 36.4 C L Pulse Rate 85 89 92 Respiratory Rate 16 16 24 H Blood Pressure 139/71 146/80 H 128/66 Pulse Oximetry 98 94 98 05/05/19 05:42 05/05/19 10:00 Temperature 37.2 C 37.2 C Pulse Rate 60 82 Respiratory Rate 22 H 22 H Blood Pressure 119/65 125/66 Pulse Oximetry 92 96 Intake/Output Intake/Output: Intake & Output 05/02/19 05/03/19 05/04/19 05/05/19 23:59 23:59 23:59 23:59 Intake Total 4120 2700 3140 2030 Output Total 650 1025 640 375 Balance 3470 1675 2500 1655 Meds/Results Medications: Active Medications Generic Name Dose Route Start Last Admin Trade Name Freq PRN Reason Stop Dose Admin Acetaminophen 500 mg 05/03/19 19:30 Tylenol Tablet PO Q6H PRN Mild Pain (1-3) or Fever Hydrocodone Bitart/Acetaminophen 1 tab 05/03/19 19:30 [place] 5-325 Mg PO Q4H PRN Pain Rated 4-6 Hydrocodone Bitart/Acetaminophen 1 tab 05/03/19 19:30 [place] 7.5-325 Mg PO Q4H PRN Pain Rated 7-10 Bisacodyl 10 mg 05/02/19 07:58 05/03/19 09:30 Dulcolax Suppository RECTAL 10 mg QAM PRN Administration Constipation Diphenhydramine HCl 25 mg 05/03/19 19:30 Benadryl Inj IV PUSH Q6H PRN Itching Enoxaparin Sodium 40 mg 05/04/19 09:00 05/05/19 08:41 Lovenox SUB-Q 40 mg DAILY LUPE Administration Sodium Chloride 1,000 mls @ 75 mls/hr 04/30/19 15:30 05/05/19 02:51 Normal Saline Iv IV CONT 125 mls/hr .[id number] LUPE Administration Piperacillin/Tazobactam/Dextrose 3.375 gm in 50 mls @ 100 mls/hr 05/03/19 20:00 05/05/19 08:20 Zosyn 3.375 Gm/D5w 50ml Pm IVPB Infused Q6H LUPE Infusion Levothyroxine Sodium 56.25 mcg 05/02/19 06:30 05/05/19 04:42 Levothyroxine Sodium Inj IV PUSH 56.25 mcg DAILY@0630 LUPE Administration Lorazepam 0.5 mg 04/30/19 21:05 05/02/19 09:50 Ativan Inj IV PUSH 0.5 mg Q6H PRN Administration Anxiety Magnesium Hydroxide 30 ml 05/05/19 11:26 Milk Of Magnesia PO 05/05/19 11:27 ONCE ONE Morphine Sulfate 4 mg 04/30/19 15:28 Morphine Sulfate Inj IV PUSH Q2H PRN Pain Rated 7-10 Morphine Sulfate 2 mg 05/03/19 19:30 Morphine Sulfate Inj IV PUSH Q2H PRN Pain Rated 4-6 Naloxone HCl 0.1 mg 05/03/19 19:30 Narcan IV PUSH Q2M PRN Opiate Reversal Ondansetron HCl 4 mg 04/30/19 15:28 Zofran Inj IV PUSH Q4H PRN Nausea Senna/Docusate Sodium 2 tab 05/03/19 21:00 05/04/19 19:59 Senokot S PO 2 tab HS LUPE Administration Tamsulosin HCl 0.4 mg 05/04/19 15:20 05/05/19 08:41 Flomax PO 0.4 mg QAM LUPE Administration Radiology Results: ITS Impressions Abdomen/Pelvis CT 04/30/19 13:46 IMPRESSION: 1. Findings consistent with interstitial edematous pancreatitis with acute peripancreatic fluid collection, possibly related to choledocholithiasis. 2. Indeterminate soft tissue density lesion of the right kidney which could reflect proteinaceous cyst or solid neoplasm. Consider nonemergent ultrasound. MRCP 05/02/19 11:49 IMPRESSION: 1. Ill-defined pancreas with acute perip
[2019-05-05 14:00] VITALS: BP 121/72; PULSE 92; RESP 22; TEMP 36.3; O2SAT 97
[2019-05-05] MEDS: THIAMINE HCL 100 MG TABLET PO (17:43)
[2019-05-05] MEDS: FOLIC ACID 1 MG TABLET PO (17:43)
[2019-05-05] MEDS: MAGNESIUM HYDROXIDE SUSP 30 ML UDC PO (18:18)
--- NOTE | 2019-05-05 19:52 | PC.NURSE ---
1730 Pt has episode of incontinence. Pt bladder scanned, 205 mL.
[2019-05-05] MEDS: SENNA/DOCUSATE SODIUM TABLET 2 TAB PO (20:12)
[2019-05-05] MEDS: MIRTAZAPINE 7.5 MG TABLET PO (20:12)
[2019-05-05] MEDS: QUEtiapine FUMARATE 25 MG TABLET PO (20:12)
[2019-05-05] MEDS: TRIHEXYPHENIDYL HCL 1 MG TABLET PO (20:12)
[2019-05-05] MEDS: DONEPEZIL HCL 10 MG TABLET PO (20:12)
[2019-05-05 22:00] VITALS: BP 130/77; PULSE 97; RESP 18; TEMP 36.3; O2SAT 94
[2019-05-06] MEDS: LEVOTHYROXINE SODIUM INJ 100 MCG/5 ML VIAL 56.25 MCG IV PUSH (05:10)
[2019-05-06 05:50] LABS: Basophils Absolute Auto 0.1 K/mm3 (0.0-0.1); Basophils Percent Auto 0.5 % (0.2-1.2); Eosinophils Absolute Auto 0.1 K/mm3 (0-0.3); Eosinophils Percent Auto 0.6 % (0-4.4); Hematocrit 42.6 % (42.0-52.0); Hemoglobin 13.7 g/dL (14.0-18.0); Immature Granulocyte Absolute 0.14 K/mm3 (0.00-0.031); Immature Granulocyte Percent A 1.1 % (0-0.5); Lymphocytes Absolute Auto 0.83 K/mm3 (0.9-3.2); Lymphocytes Percent Auto 6.4 % (18.3-44.2); Mean Corpuscular HGB Conc 32.2 g/dl (32-36); Mean Corpuscular Hemoglobin 30.8 pg (26-34); Mean Corpuscular Volume 95.7 fl (80-100); Mean Platelet Volume 10.1 fl (7.4-10.4); Monocytes Absolute Auto 0.8 K/mm3 (0.1-0.6); Monocytes Percent Auto 6.1 % (2.6-8.5); Neutrophils Percent Auto 85.3 % (45.5-73.1); Platelet Count Result 197 k/mm3 (150-375); Red Blood Count 4.45 M/mm3 (4.6-6.20); Red Cell Distribution Width 14.3 % (11.5-14.5); White Blood Count 12.9 K/mm3 (4.5-10.0)
[2019-05-06 06:00] VITALS: BP 134/70; PULSE 103; RESP 18; TEMP 36.2; O2SAT 99
[2019-05-06 06:07] LABS: Alanine Aminotransferase 60 U/L (4-50); Albumin Level 2.4 g/dL (3.5-5.1); Alkaline Phosphatase 135 U/L (38-126); Aspartate Amino Transferase 84 U/L (17-59); Bilirubin,Total 0.8 mg/dL (0.2-1.3); Blood Urea Nitrogen 11 mg/dL (9-20); Calcium 6.9 mg/dL (8.4-10.2); Carbon Dioxide 24 mmol/L (22-30); Chloride 103 mmol/L (98-107); Estimated CRCL calculation 102 ml/min; Estimated Glomerular Filt Rate > 60; Glucose 94 mg/dL (75-110); Potassium 3.4 mmol/L (3.4-5.0); Sodium 135 mmol/L (137-145)
[2019-05-06] MEDS: TAMSULOSIN HCL 0.4 MG CAPSULE PO ×2 (09:17→16:59)
[2019-05-06] MEDS: ENOXAPARIN 40 MG/0.4 ML SYRINGE SUB-Q (09:17)
[2019-05-06] MEDS: FOLIC ACID 1 MG TABLET PO (09:17)
[2019-05-06] MEDS: TRIHEXYPHENIDYL HCL 1 MG TABLET PO ×2 (09:18→20:38)
[2019-05-06] MEDS: THIAMINE HCL 100 MG TABLET PO (09:18)
[2019-05-06] MEDS: FUROSEMIDE INJ 40 MG/4 ML VIAL 20 MG IV PUSH (09:25)
[2019-05-06 09:44] VITALS: O2SAT 92
[2019-05-06 10:00] VITALS: BP 101/80; PULSE 94; RESP 20; TEMP 36.3; O2SAT 98
[2019-05-06] MEDS: BISACODYL 10 MG SUPPOSITORY RECTAL (11:26)
--- NOTE | 2019-05-06 13:45 | PM.IMPN ---
Progress Note: A&P Assessment and Plan (1) Choledocholithiasis: Code(s): K80.50 - Calculus of bile duct without cholangitis or cholecystitis without obstruction Status: Acute Assessment and Plan: MRCP is ordered and GI has been consulted. 05/02/2019: MRCP was completed showing Normal common bile duct without stones or stricture. Ill-defined pancreas with acute peripancreatic fluid collection. Although lipase is normal, imaging findings remain consistent with interstitial edematous pancreatitis, possibly related to gallstones that have since passed. T1 hyperintense fluid surrounding the pancreas may be proteinaceous or hemorrhagic. 05/03/2019: The patient went for laproscopic cholecystectomy by Dr. Bernstein. He had a severely inflamed gallbladder which was densely adhered with inflammatory adhesions to the right lateral abdominal wall just inferior to the edge of the right lobe of the liver. Dr. Bernstein stated appeared to be severely acute and probable chronic cholecystitis. The patient was started on IV Zosyn after his laparoscopic surgery 05/03/2019. Will continue monitor antibiotics and see how he does over the next few days. Today, is postop day #3. The patients leukocytosis increased to 12,900 and slight tachycardic at 103 on morning vitals. He is otherwise afebrile, normal blood pressure, normal oxygenation and respiratory rate. Patient's liver enzymes are improving postop. Surgery ordered a suppository to be given and further monitoring. Continue monitoring him advance his diet and ensure he is having bowel movements. Will continue monitoring the patient's symptoms and appreciate general surgery's recommendations. (2) Acute pancreatitis: Qualifiers: Acute pancreatitis complication: unspecified Pancreatitis type: unspecified pancreatitis type Qualified Code(s): K85.90 - Acute pancreatitis without necrosis or infection, unspecified Code(s): K85.90 - Acute pancreatitis without necrosis or infection, unspecified Status: Acute Assessment and Plan: CT evidence of acute interstitial pancreatitis with suspicion that the cause is due to possible choledocholelithiasis with also associated elevated LFTs. MRCP was completed yesterday and showed Normal common bile duct without stones or stricture. Ill-defined pancreas with acute peripancreatic fluid collection. Although lipase is normal, imaging findings remain consistent with interstitial edematous pancreatitis, possibly related to gallstones that have since passed. T1 hyperintense fluid surrounding the pancreas may be proteinaceous or hemorrhagic. Total bilirubin on arrival was 2.7, and has since normalized. Liver enzymes are improving since surgery Patient's lipid profile was normal. Patient's lipase and amylase was normal. Continue monitoring the patient's symptoms. Appreciate input from GI and surgery Services. (3) Urinary retention: Code(s): R33.9 - Retention of urine, unspecified Status: Acute Assessment and Plan: I was informed that the patient had been retaining some urine overnight. The patient refused to be straight cathed. I will start Flomax to see if this helps with his urinary retention. We will continue monitoring his urine output and bladder scanning as needed. We may need to place a Mejia catheter if he is still retaining. (4) Hypothyroidism: Code(s): E03.9 - Hypothyroidism, unspecified Status: Chronic Assessment and Plan: The patient's TSH was 6.79 and free T4 was 0.67. The nurse called the [facility] and the last time is TSH was checked was November of 2018. At this time I will increase his levothyroxine to 112.5 daily and will have his [facility] recheck his labs in 4 weeks. (5) Alzheimer's dem
--- NOTE | 2019-05-06 17:00 | PM.PNGS ---
Progress Note: A&P Assessment and Plan (1) Cholelithiasis with acute on chronic cholecystitis without biliary obstruction: Onset Date: ~04/2019 Code(s): K80.12 - Calculus of gallbladder with acute and chronic cholecystitis without obstruction Status: Acute Assessment and Plan: Patient doing okay postop day 3 Monitor drainage from previous ODETTE drain site right upper quadrant of the abdomen Continue antibiotics and consider switching to orals for 24 hours prior to discharge. Subjective Subjective Date/Time Seen: 05/06/19 17:00 Post Op day: 3 Patient reports: no new complaints, flatus, no bowel movement and afebrile Interval history: Patient states that he feels okay. States that he slept okay. Could not remember if he has had a bowel movement. Review of Systems Constitutional: Constitutional: Reports no additional constitutional complaints ENT: Reports other (Mucous Membranes moist.) Cardiovascular: Cardiovascular: Denies dyspnea Respiratory: Respiratory: Denies pain on inspiration and Denies dyspnea Musculoskeletal: Musculoskeletal: Reports other (No calf swelling or edema) Integumentary/Breasts: Skin/Breast: Reports system reviewed and no additional complaints, except as docu Exam Const: General: cooperative, no acute distress, alert and awake Orientation/consciousness: patient oriented x3 HENMT: Mouth: Yes moist mucous membranes Neck: Neck: normal visual inspection Chest: Chest palpation & inspection: normal inspection of the chest Resp: Effort & Inspection: normal respiratory effort Auscultation: clear to auscultation bilaterally Cardio: Jugular venous distension: no JVD Rate: regular rate Rhythm: regular rhythm GI: GI Palp: Yes Soft to palpation and No Hernia present Auscultation: normal bowel sounds Rectal Exam: deferred Other: Exam reveals mild serosanguineous drainage with a slight yellow stain in the right upper quadrant at the previous most lateral port site where the drain was removed today or 2 ago. Otherwise the incisions are clean and dry. I changed the dressing with the nurse today and remove the patient's abdominal binder. He does not need this now that there was no drain to be concerned about that could be pulled out. The most lateral subcostal port site was redressed with dry 4x4s and paper tape. Extrem: General: normal exam except as noted Psych: Mental Status: mental status grossly normal Speech and movement: Normal speech and movement present Affect: normal affect Thought content: Yes Normal thought content present Objective Data Vital Signs Vital Signs: Vital Signs - 24 hr 05/05/19 22:00 05/06/19 06:00 05/06/19 09:44 Temperature 36.3 C L 36.2 C L Pulse Rate 97 103 H Respiratory Rate 18 18 Blood Pressure 130/77 134/70 Pulse Oximetry 94 99 92 05/06/19 10:00 Temperature 36.3 C L Pulse Rate 94 Respiratory Rate 20 Blood Pressure 101/80 Pulse Oximetry 98 Intake/Output Intake/Output: Intake & Output 05/03/19 05/04/19 05/05/19 05/06/19 23:59 23:59 23:59 23:59 Intake Total 2700 3140 3752 1580 Output Total 1025 148 804 3089 Balance 1675 2500 3227 405 Meds/Results Medications: Active Medications Generic Name Dose Route Start Last Admin Trade Name Freq PRN Reason Stop Dose Admin Acetaminophen 500 mg 05/03/19 19:30 Tylenol Tablet PO Q6H PRN Mild Pain (1-3) or Fever Hydrocodone Bitart/Acetaminophen 1 tab 05/03/19 19:30 [place] 5-325 Mg PO Q4H PRN Pain Rated 4-6 Hydrocodone Bitart/Acetaminophen 1 tab 05/03/19 19:30 [place] 7.5-325 Mg PO Q4H PRN Pain Rated 7-10 Bisacodyl 10 mg 05/02/19 07:58 05/06/19 11:26 Dulcolax Suppository RECTAL 10 mg QAM PRN Administration Constipation Diphenhydramine HCl 25 mg 05/03/19 19:30 Benadryl Inj IV PUSH Q6H PRN Itching Donepezil HCl 10 mg 05/05/19 21:00 05/05/19 20:12 Aricept PO 10 mg HS LUPE Administr
[2019-05-06 18:00] VITALS: BP 125/67; PULSE 83; RESP 16; TEMP 37.2; O2SAT 95
[2019-05-06] MEDS: DONEPEZIL HCL 10 MG TABLET PO (20:38)
[2019-05-06] MEDS: QUEtiapine FUMARATE 25 MG TABLET PO (20:38)
[2019-05-06] MEDS: MIRTAZAPINE 7.5 MG TABLET PO (20:38)
[2019-05-06] MEDS: SENNA/DOCUSATE SODIUM TABLET 2 TAB PO (20:38)
[2019-05-06 21:47] VITALS: BP 108/75; PULSE 96; RESP 28; TEMP 36.9; O2SAT 94
[2019-05-07 05:39] LABS: Basophils Percent Auto 0.2 % (0.2-1.2); Eosinophils Absolute Auto 0.1 K/mm3 (0-0.3); Eosinophils Percent Auto 0.9 % (0-4.4); Hematocrit 38.5 % (42.0-52.0); Hemoglobin 12.6 g/dL (14.0-18.0); Immature Granulocyte Absolute 0.13 K/mm3 (0.00-0.031); Immature Granulocyte Percent A 0.9 % (0-0.5); Lymphocytes Absolute Auto 0.97 K/mm3 (0.9-3.2); Lymphocytes Percent Auto 6.9 % (18.3-44.2); Mean Corpuscular HGB Conc 32.7 g/dl (32-36); Mean Corpuscular Hemoglobin 30.5 pg (26-34); Mean Corpuscular Volume 93.2 fl (80-100); Mean Platelet Volume 9.7 fl (7.4-10.4); Monocytes Absolute Auto 0.7 K/mm3 (0.1-0.6); Neutrophils Absolute Auto 12.1 K/mm3 (1.3-6.7); Neutrophils Percent Auto 86.1 % (45.5-73.1); Platelet Count Result 240 k/mm3 (150-375); Red Blood Count 4.13 M/mm3 (4.6-6.20); Red Cell Distribution Width 14.4 % (11.5-14.5); White Blood Count 14.1 K/mm3 (4.5-10.0)
[2019-05-07] MEDS: LEVOTHYROXINE SODIUM 100 MCG TABLET PO (05:58)
[2019-05-07 06:00] VITALS: BP 134/61; PULSE 85; RESP 24; TEMP 36.9; O2SAT 96
[2019-05-07 06:08] LABS: Alanine Aminotransferase 45 U/L (4-50); Albumin Level 2.2 g/dL (3.5-5.1); Alkaline Phosphatase 121 U/L (38-126); Aspartate Amino Transferase 58 U/L (17-59); Bilirubin,Total 0.6 mg/dL (0.2-1.3); Blood Urea Nitrogen 12 mg/dL (9-20); Calcium 6.9 mg/dL (8.4-10.2); Carbon Dioxide 27 mmol/L (22-30); Chloride 104 mmol/L (98-107); Estimated CRCL calculation 89 ml/min; Estimated Glomerular Filt Rate > 60; Glucose 87 mg/dL (75-110); Potassium 3.4 mmol/L (3.4-5.0); Sodium 135 mmol/L (137-145)
[2019-05-07] MEDS: ENOXAPARIN 40 MG/0.4 ML SYRINGE SUB-Q (08:17)
[2019-05-07] MEDS: POTASSIUM CHLORIDE 20 MEQ TABLET 40 MEQ PO (08:17)
[2019-05-07] MEDS: TRIHEXYPHENIDYL HCL 1 MG TABLET PO ×2 (08:18→19:43)
[2019-05-07] MEDS: THIAMINE HCL 100 MG TABLET PO (08:18)
[2019-05-07] MEDS: TAMSULOSIN HCL 0.4 MG CAPSULE PO (08:18)
[2019-05-07] MEDS: FOLIC ACID 1 MG TABLET PO (08:18)
[2019-05-07 08:51] VITALS: BP 116/57; PULSE 86; RESP 24; TEMP 37.1; O2SAT 94
[2019-05-07 13:58] VITALS: BP 108/55; PULSE 83; RESP 22; TEMP 36.4; O2SAT 97
--- NOTE | 2019-05-07 15:17 | PM.IMPN ---
Progress Note: A&P Assessment and Plan (1) Cholelithiasis with acute on chronic cholecystitis without biliary obstruction: Onset Date: ~04/2019 Code(s): K80.12 - Calculus of gallbladder with acute and chronic cholecystitis without obstruction Status: Acute Assessment and Plan: Patient POD [address] Bernstein. He had a severely inflamed gallbladder which was densely adhered with inflammatory adhesions to the right lateral abdominal wall just inferior to the edge of the right lobe of the liver. Dr. Bernstein stated appeared to be severely acute and probable chronic cholecystitis. Patient's WBC continues to climb slightly today at 14.1k, however patient continues to deny s/sx of infection including cough, urinary symptoms, tooth/gum pain. He has been afebrile. CXR yesterday showed small pleural effussions and mild atelectasis at lung bases. LFTs improving post-op. Patient had BM today. General Surgery is following and appreciate recommendations Continue IV Zosyn after his laparoscopic. He will likely need PO antibiotics on discharge Since no change on overall status and is afebrile without a clear alternate source of infection, will continue to monitor WBC tomorrow. Consider possible blood cultures or other diagnostics if continue to elevate or if there is a change in the patient's status. Will continue monitoring the patient's symptoms and appreciate general surgery's recommendations. (2) Acute pancreatitis: Qualifiers: Acute pancreatitis complication: unspecified Pancreatitis type: unspecified pancreatitis type Qualified Code(s): K85.90 - Acute pancreatitis without necrosis or infection, unspecified Code(s): K85.90 - Acute pancreatitis without necrosis or infection, unspecified Status: Acute Assessment and Plan: CT evidence of acute interstitial pancreatitis with suspicion that the cause is due to possible choledocholelithiasis with also associated elevated LFTs. MRCP showed Normal common bile duct without stones or stricture. Ill-defined pancreas with acute peripancreatic fluid collection. Although lipase is normal, imaging findings remain consistent with interstitial edematous pancreatitis, possibly related to gallstones that have since passed. T1 hyperintense fluid surrounding the pancreas may be proteinaceous or hemorrhagic. Total bilirubin on arrival was 2.7, and has since normalized. Liver enzymes are improving since surgery Patient's lipid profile was normal. Patient's lipase and amylase was normal. Continue monitoring the patient's symptoms. Appreciate input from GI and surgery Services. (3) Urinary retention: Code(s): R33.9 - Retention of urine, unspecified Status: Acute Assessment and Plan: Patient has Mejia catheter in. Continue Flomax and Mejia We will continue monitoring his urine output and bladder scanning as needed. Consider Mejia trial tomorrow (4) Hypothyroidism: Code(s): E03.9 - Hypothyroidism, unspecified Status: Chronic Assessment and Plan: The patient's TSH was 6.79 and free T4 was 0.67. Continue levothyroxine at 100 mcg. Will recheck TSH with reflex 4 weeks. Further management per PCP (5) Alzheimer's dementia: Qualifiers: Alzheimer's disease onset: unspecified onset Dementia behavioral disturbance: without behavioral disturbance Qualified Code(s): G30.9 - Alzheimer's disease, unspecified; F02.80 - Dementia in other diseases classified elsewhere without behavioral disturbance Code(s): G30.9 - Alzheimer's disease, unspecified; F02.80 - Dementia in other diseases classified elsewhere without behavioral disturbance Status: Chronic Assessment and Plan: No acute issues at this time. C
--- NOTE | 2019-05-07 16:32 | PC.NURSE ---
On 05/07/19, the student, Wyatt Hamlin, provided care and completed [facility] documentation on this patient. I have reviewed the student's documentation and agree with the findings.
--- NOTE | 2019-05-07 17:24 | PM.PNGS ---
Progress Note: A&P Assessment and Plan (1) Cholelithiasis with acute on chronic cholecystitis without biliary obstruction: Onset Date: ~04/2019 Code(s): K80.12 - Calculus of gallbladder with acute and chronic cholecystitis without obstruction Status: Acute Assessment and Plan: Postop day 4 and doing fair. No complaints from the patient and seems to be clinically doing well. WBC trending up to 14,000 today although the patient is afebrile. Chest x-ray yesterday showed mild atelectasis at the lung bases and small pleural effusions. Encouraged the patient to get up to the chair and walk the halls. I also discussed this with the nurse due to his dementia. He also requires a reminder to use the IS due to his dementia. Urinalysis ordered but not resulted yet. Incisions do not appear to be infected. Discussed with the Hospitalist as well who is repeating labs tomorrow morning. Continue IV antibiotics for today and consider switching to orals for 24 hours prior to discharge. Repeat labs in the morning and continue to monitor. Additional Plan Discussed the patient's case and plan of care with Dr. Bernstein. Subjective Subjective Date/Time Seen: 05/07/19 16:00 Post Op day: 4 (lap. cholecystectomy) Patient reports: no new complaints, tolerating a regular diet and bowel movement Interval history: Patient seen and examined. Has a history of dementia and is a poor historian. He has absolutely no complaints for me on exam. Denies nausea, vomiting, or bloating. States he has had 2 bowel movements today and there is one officially documented in his chart this morning. Per the nurse, he also had a bowel movement once yesterday but liquid stool. Patient states he has not gotten up and walked today, and the nurse reports he did get up to the chair once today. Patient is refusing to get up out of bed at the time of my exam but agrees to get up later. No other complaints at this time. WBC up to 14,000 today. Vital signs stable and he is afebrile. Mejia in place for urinary retention. Review of Systems Review of Systems: All systems reviewed & are unremarkable except as noted in HPI and below ROS unobtainable: other (difficult to obtain d/t severe dementia) Constitutional: Constitutional: Denies chills and Denies fever(s) Cardiovascular: Cardiovascular: Denies chest pain, Denies pedal edema, Denies leg edema and Denies dyspnea on exertion Respiratory: Respiratory: Denies cough, Denies pain on inspiration and Denies dyspnea Gastrointestinal: Gastrointestinal: Denies abdominal pain, Denies dysphagia, Reports loose stools, Denies nausea and Denies vomiting Exam Const: General: comfortable, no acute distress, alert and awake Resp: Effort & Inspection: normal respiratory effort and able to speak in complete sentences Auscultation: crackles on the right in the lower lung archuleta and other (CTA other than what is noted above) Cardio: Rate: regular rate Rhythm: regular rhythm GI: Inspection: non-distended, incision (Abdominal incisions healing as expected. Clean/dry/intact.) and other (drainage on dressing in RUQ is serosanguineous on the gauze) GI Palp: Yes Soft to palpation, Yes Tenderness to palpation present (GI) (incisional tenderness), No Guarding due to palpation present (GI), No Rebound tenderness present and Yes Other GI palpation findings present (round protuberant abdomen, no more distention then when last evaluated) Auscultation: Hypoactive bowel sounds present Rectal Exam: deferred Urinary Catheter: Urinary Catheter: patent and draining and urine dark Neuro: General: moves all extremities Cranial nerves: Yes CN's II-XII intact bilaterally Speech: normal speech Extrem: General: no calf tenderness and no edema Psych: Attitude: cooperative Objective Data Vital Signs Vital Signs: Vital Signs - 24 hr 05/06/19 18:00 05/06/19 21:47 05/07/19 06:00 Temperature 37.2 C 36.9 C 36.9 C Pulse Rate 83 96 85 Respiratory Rate 16 28 H 2
[2019-05-07 19:14] LABS: Add Urine Microscopic? YES; Appearance Urine Clear (Clear); Bacteria Urine Trace /hpf; Bilirubin Urine Negative (Negative); Blood Urine 1+ (Negative); Color Urine Amber (Yellow); Glucose Urine UA Negative (Negative); Ketones Urine Negative (Negative); Leukocyte Esterase Ur Trace LEU/UL (Negative); Mucus Urine Rare /lpf; Nitrate Urine Negative (Negative); Protein Urine 2+ mg/dL (Negative); RBC Urine 21-50 /hpf (0-2); Specific Grav Ur 1.028 (1.001-1.035); Squamous Epithelial Cell Urine Rare /hpf (Few)
[2019-05-07] MEDS: QUEtiapine FUMARATE 25 MG TABLET PO (19:43)
[2019-05-07] MEDS: DONEPEZIL HCL 10 MG TABLET PO (19:43)
[2019-05-07] MEDS: SENNA/DOCUSATE SODIUM TABLET 2 TAB PO (19:43)
[2019-05-07] MEDS: MIRTAZAPINE 7.5 MG TABLET PO (19:44)
[2019-05-07 22:01] VITALS: BP 116/58; PULSE 86; RESP 18; TEMP 38; O2SAT 95
[2019-05-08] MEDS: LEVOTHYROXINE SODIUM 100 MCG TABLET PO (05:22)
[2019-05-08 05:57] LABS: Alanine Aminotransferase 41 U/L (4-50); Albumin Level 2.2 g/dL (3.5-5.1); Alkaline Phosphatase 120 U/L (38-126); Aspartate Amino Transferase 55 U/L (17-59); Bilirubin,Total 0.7 mg/dL (0.2-1.3); Blood Urea Nitrogen 10 mg/dL (9-20); Calcium 7.2 mg/dL (8.4-10.2); Carbon Dioxide 24 mmol/L (22-30); Chloride 101 mmol/L (98-107); Estimated CRCL calculation 89 ml/min; Estimated Glomerular Filt Rate > 60; Glucose 101 mg/dL (75-110); Potassium 3.2 mmol/L (3.4-5.0); Sodium 133 mmol/L (137-145)
[2019-05-08 06:02] LABS: Basophils Percent Auto 0.3 % (0.2-1.2); Eosinophils Absolute Auto 0.1 K/mm3 (0-0.3); Eosinophils Percent Auto 0.9 % (0-4.4); Hematocrit 37.9 % (42.0-52.0); Hemoglobin 12.4 g/dL (14.0-18.0); Immature Granulocyte Absolute 0.16 K/mm3 (0.00-0.031); Immature Granulocyte Percent A 1.2 % (0-0.5); Lymphocytes Absolute Auto 1.09 K/mm3 (0.9-3.2); Lymphocytes Percent Auto 8.2 % (18.3-44.2); Mean Corpuscular HGB Conc 32.7 g/dl (32-36); Mean Corpuscular Hemoglobin 30.7 pg (26-34); Mean Corpuscular Volume 93.8 fl (80-100); Monocytes Absolute Auto 0.6 K/mm3 (0.1-0.6); Monocytes Percent Auto 4.4 % (2.6-8.5); Neutrophils Absolute Auto 11.2 K/mm3 (1.3-6.7); Platelet Count Result 243 k/mm3 (150-375); Red Blood Count 4.04 M/mm3 (4.6-6.20); Red Cell Distribution Width 14.4 % (11.5-14.5); White Blood Count 13.2 K/mm3 (4.5-10.0)
[2019-05-08 06:09] VITALS: BP 127/69; PULSE 87; RESP 18; TEMP 36.9; O2SAT 100
[2019-05-08] MEDS: FOLIC ACID 1 MG TABLET PO (08:44)
[2019-05-08] MEDS: ENOXAPARIN 40 MG/0.4 ML SYRINGE SUB-Q (08:44)
[2019-05-08] MEDS: THIAMINE HCL 100 MG TABLET PO (08:44)
[2019-05-08] MEDS: TAMSULOSIN HCL 0.4 MG CAPSULE PO (08:44)
[2019-05-08] MEDS: TRIHEXYPHENIDYL HCL 1 MG TABLET PO ×2 (08:44→21:00)
--- NOTE | 2019-05-08 10:47 | PM.PNGS ---
Progress Note: A&P Assessment and Plan (1) Cholelithiasis with acute on chronic cholecystitis without biliary obstruction: Onset Date: ~04/2019 Code(s): K80.12 - Calculus of gallbladder with acute and chronic cholecystitis without obstruction Status: Acute Assessment and Plan: Postop day 5 and doing fair. I spoke with the Hospitalist regarding the patient again today. WBC down some but low-grade fever overnight. This could be attributed to atelectasis. I discussed the importance of getting the patient up and walking the halls at least 2-3 times today with the nurse. They will also have to be his reminder for his IS use. The Hospitalist is also ordered BLE venous dopplers to rule out clot as a source. UA came back with trace leukocytes, nitrates negative, WBC 10-15, and rare epithelial cells - his current antibiotics will cover for a possible UTI and will await urine culture. Will also be changing the patient to oral antibiotics today. This way we can monitor how him for 24 hours after switching him to oral antibiotics. Additional Plan Discussed the patient's case and plan of care with Dr. Bernstein. Subjective Subjective Date/Time Seen: 05/08/19 09:35 Post Op day: 5 (lap. cholecystectomy) Patient reports: no new complaints Interval history: Patient seen and examined. Denies any complaints at this time. Denies abdominal pain or any pain anywhere. Denies getting up yet today. Denies a bowel movement today. Denies shortness of breath. He does voice that he does not want to get out of bed. I spoke with the nurse who states they have gotten him up to the chair for meals but due to his confusion, he tries getting up out of the chair without assistance within 10 minutes and they end up having to put him back in bed for his safety. She also states they are planning on walking him in the halls this morning. No acute events overnight. Did have a temperature of 38C overnight. WBC down to 13,000 today. Review of Systems Review of Systems: All systems reviewed & are unremarkable except as noted in HPI and below ROS unobtainable: other (difficult to obtain d/t severe dementia) Constitutional: Constitutional: Denies body ache(s), Denies chills and Denies weakness Cardiovascular: Cardiovascular: Denies chest pain Respiratory: Respiratory: Denies chest congestion, Denies cough, Denies dyspnea and Denies dyspnea on exertion Gastrointestinal: Gastrointestinal: Denies abdominal pain, Denies bloating, Denies change in stool character, Denies nausea and Denies vomiting Genitourinary: Comments: Mejia in place. Exam Const: General: comfortable, no acute distress, alert and awake Orientation/consciousness: oriented to person, No oriented to place and No oriented to time Resp: Effort & Inspection: able to speak in complete sentences and no respiratory distress Auscultation: crackles on the right in the lower lung archuleta and other (CTA other than what is noted above) Cardio: Rate: regular rate Rhythm: regular rhythm GI: Inspection: normal to inspection, incision (Abdominal incisions healing as expected. Clean/dry/intact.) and other (drainage on dressing in RUQ is serosanguineous on the gauze) GI Palp: Yes Soft to palpation, Yes Tenderness to palpation present (GI) (incisional), No Guarding due to palpation present (GI) and No Rebound tenderness present Auscultation: normal bowel sounds Rectal Exam: deferred Other: Abdomen large and protuberant, no more distended than previous exam Skin: General skin exam: normal color Extrem: General: no calf tenderness and edema (BLE pitting edema, worse on left than right) Psych: Mental Status: mental status grossly normal Attitude: cooperative Objective Data Vital Signs Vital Signs: Vital Signs - 24 hr 05/07/19 13:58 05/07/19 22:01 05/08/19 06:09 Temperature 36.4 C L 38.0 C H 36.9 C Pulse Rate 83 86 87 Respiratory Rate 22 H 18 18 Blood Pressure 108/55 L 116/58 L 127/69 Pulse Oximetry 97
--- NOTE | 2019-05-08 13:44 | PM.IMPN ---
Progress Note: A&P Assessment and Plan (1) Cholelithiasis with acute on chronic cholecystitis without biliary obstruction: Onset Date: ~04/2019 Code(s): K80.12 - Calculus of gallbladder with acute and chronic cholecystitis without obstruction Status: Acute Assessment and Plan: Patient POD [address] Bernstein. He had a severely inflamed gallbladder which was densely adhered with inflammatory adhesions to the right lateral abdominal wall just inferior to the edge of the right lobe of the liver. Dr. Bernstein stated appeared to be severely acute and probable chronic cholecystitis. Patient's WBC continues to be elevated but slightly improved at 13.2k; patient continues to deny s/sx of infection including cough, urinary symptoms, tooth/gum pain, although full ROS may not be fully reliable. He had mild fever last night which has since resolved. CXR on 05/06 showed small pleural effussions and mild atelectasis at lung bases. LFTs improved post-op. Patient had BM again today per Nursing. General Surgery is following and appreciate recommendations IV zosyn for now but will likely change to PO antibiotics today Since no change on overall status and is afebrile today (mild fever last night) without a clear alternate source of infection, will continue to monitor WBC tomorrow. Venous doppler negative today for DVT. Urine cultures are pending. Consider possible blood cultures or other diagnostics if WBC continue to trend up or if there is a change in the patient's status. Will continue monitoring the patient's symptoms and appreciate general surgery's recommendations. (2) Acute pancreatitis: Qualifiers: Acute pancreatitis complication: unspecified Pancreatitis type: unspecified pancreatitis type Qualified Code(s): K85.90 - Acute pancreatitis without necrosis or infection, unspecified Code(s): K85.90 - Acute pancreatitis without necrosis or infection, unspecified Status: Acute Assessment and Plan: CT evidence of acute interstitial pancreatitis with suspicion that the cause is due to possible choledocholelithiasis with also associated elevated LFTs. MRCP showed Normal common bile duct without stones or stricture. Ill-defined pancreas with acute peripancreatic fluid collection. Although lipase is normal, imaging findings remain consistent with interstitial edematous pancreatitis, possibly related to gallstones that have since passed. T1 hyperintense fluid surrounding the pancreas may be proteinaceous or hemorrhagic. Total bilirubin on arrival was 2.7, and has since normalized. Liver enzymes are improved since surgery Patient's lipid profile was normal. Patient's lipase and amylase was normal. Continue monitoring the patient's symptoms. Appreciate input from GI and surgery services. (3) Urinary retention: Code(s): R33.9 - Retention of urine, unspecified Status: Acute Assessment and Plan: Patient has Mejia catheter in. Continue Flomax and Mejia Voiding trial today (4) Hypothyroidism: Code(s): E03.9 - Hypothyroidism, unspecified Status: Chronic Assessment and Plan: The patient's TSH was 6.79 and free T4 was 0.67. Continue levothyroxine at 100 mcg. Will recheck TSH with reflex 4 weeks. Further management per PCP (5) Alzheimer's dementia: Qualifiers: Alzheimer's disease onset: unspecified onset Dementia behavioral disturbance: without behavioral disturbance Qualified Code(s): G30.9 - Alzheimer's disease, unspecified; F02.80 - Dementia in other diseases classified elsewhere without behavioral disturbance Code(s): G30.9 - Alzheimer's disease, unspecified; F02.80 - Dementia in other diseases classified elsewhere without behavioral disturbance
[2019-05-08 14:00] VITALS: BP 106/63; PULSE 84; RESP 16; TEMP 36.6; O2SAT 96
[2019-05-08] MEDS: QUEtiapine FUMARATE 25 MG TABLET PO (21:00)
[2019-05-08] MEDS: SENNA/DOCUSATE SODIUM TABLET 2 TAB PO (21:00)
[2019-05-08] MEDS: DONEPEZIL HCL 10 MG TABLET PO (21:00)
[2019-05-08] MEDS: AMOXICILLIN/CLAVULANATE K 875-125 MG TAB 1 TABLET PO (21:00)
[2019-05-08] MEDS: MIRTAZAPINE 7.5 MG TABLET PO (21:00)
[2019-05-08 22:35] VITALS: BP 115/94; PULSE 96; RESP 18; TEMP 36.7; O2SAT 95
[2019-05-09 06:01] LABS: Basophils Absolute Auto 0.1 K/mm3 (0.0-0.1); Basophils Percent Auto 0.4 % (0.2-1.2); Eosinophils Absolute Auto 0.1 K/mm3 (0-0.3); Eosinophils Percent Auto 0.8 % (0-4.4); Hematocrit 40.3 % (42.0-52.0); Immature Granulocyte Absolute 0.12 K/mm3 (0.00-0.031); Lymphocytes Absolute Auto 1.12 K/mm3 (0.9-3.2); Mean Corpuscular HGB Conc 32.3 g/dl (32-36); Mean Corpuscular Hemoglobin 30.6 pg (26-34); Mean Corpuscular Volume 94.8 fl (80-100); Monocytes Absolute Auto 0.7 K/mm3 (0.1-0.6); Monocytes Percent Auto 5.2 % (2.6-8.5); Neutrophils Absolute Auto 10.5 K/mm3 (1.3-6.7); Neutrophils Percent Auto 83.6 % (45.5-73.1); Platelet Count Result 262 k/mm3 (150-375); Red Blood Count 4.25 M/mm3 (4.6-6.20); Red Cell Distribution Width 14.5 % (11.5-14.5); White Blood Count 12.5 K/mm3 (4.5-10.0)
[2019-05-09] MEDS: LEVOTHYROXINE SODIUM 100 MCG TABLET PO (06:02)
[2019-05-09 06:11] LABS: Alanine Aminotransferase 43 U/L (4-50); Albumin Level 2.4 g/dL (3.5-5.1); Alkaline Phosphatase 128 U/L (38-126); Aspartate Amino Transferase 60 U/L (17-59); Bilirubin,Total 0.8 mg/dL (0.2-1.3); Blood Urea Nitrogen 9 mg/dL (9-20); Calcium 7.5 mg/dL (8.4-10.2); Carbon Dioxide 27 mmol/L (22-30); Chloride 101 mmol/L (98-107); Estimated CRCL calculation 89 ml/min; Estimated Glomerular Filt Rate > 60; Glucose 92 mg/dL (75-110); Potassium 3.4 mmol/L (3.4-5.0); Sodium 133 mmol/L (137-145)
[2019-05-09 06:16] VITALS: BP 123/65; PULSE 100; RESP 20; TEMP 36.1; O2SAT 94
--- NOTE | 2019-05-09 07:56 | PM.PNGS ---
Progress Note: A&P Assessment and Plan (1) Cholelithiasis with acute on chronic cholecystitis without biliary obstruction: Onset Date: ~04/2019 Code(s): K80.12 - Calculus of gallbladder with acute and chronic cholecystitis without obstruction Status: Acute Assessment and Plan: Appears to be recovering well. Oral antibiotics should cover possible UTI and any residual infection related to his cholecystitis. LFTs all normal except for 1 and this is trending toward normal. BUN and creatinine now normal so patient apparently has a reasonable hydration status. Additional Plan WBC down a little bit even though patient switch to oral antibiotics. From surgical point of view needs b.i.d. dressing change to most lateral port site where E has serosanguineous drainage. Otherwise okay to be discharged back to ECF. Would recommend perhaps 7-10 days of further oral antibiotic then stop and have [facility] repeat CBC 2-3 days after antibiotics stopped. Since I have seen the patient now 6 days status post laparoscopic cholecystectomy. Could do a follow-up in the office in 4-6 weeks. If patient starts running a fever at the [facility] after antibiotics. Recommend ECF MD attending examined patient and consider repeat CT scan as an outpatient along with other labs as indicated. Subjective Subjective Date/Time Seen: 05/09/19 07:56 Post Op day: POD #6 Patient reports: no new complaints and tolerating a regular diet Interval history: Patient can't remember whether he had a bowel movement the last 24 hours her not Patient states that he feels okay. He denies any pain anywhere today. Specifically denies abdominal pain. Review of Systems Constitutional: Constitutional: Reports no additional constitutional complaints ENT: Reports other (Mucous Membranes moist.) Cardiovascular: Cardiovascular: Denies dyspnea Respiratory: Respiratory: Denies pain on inspiration and Denies dyspnea Musculoskeletal: Musculoskeletal: Reports other (No calf swelling or edema) Integumentary/Breasts: Skin/Breast: Reports system reviewed and no additional complaints, except as docu Exam GI: Inspection: normal to inspection, non-distended, incision (Abdominal incisions healing as expected. Clean/dry/intact.) and other (drainage on dressing in RUQ is serosanguineous on the gauze) Auscultation: normal bowel sounds and Hypoactive bowel sounds present Rectal Exam: deferred Other: Abdomen large and protuberant, no more distended than previous exam Skin: General skin exam: normal color and no rashes or lesions noted Neuro: General: oriented to person, No oriented to place, No oriented to time, moves all extremities and Unable to assess gait Cranial nerves: Yes CN's II-XII intact bilaterally Speech: normal speech Gait exam (Neuro): Unable to assess gait Motor exam (neuro): 5/5 motor strength present throughout Sensory Exam: normal sensation Objective Data Vital Signs Vital Signs: Vital Signs - 24 hr 05/08/19 14:00 05/08/19 22:35 05/09/19 06:16 Temperature 36.6 C 36.7 C 36.1 C L Pulse Rate 84 96 100 Respiratory Rate 16 18 20 Blood Pressure 106/63 115/94 H 123/65 Pulse Oximetry 96 95 94 Intake/Output Intake/Output: Intake & Output 05/06/19 05/07/19 05/08/19 05/09/19 23:59 23:59 23:59 23:59 Intake Total 1830 1330 1950 200 Output Total 2075 575 2500 1050 Balance -245 755 550 -850 Meds/Results Medications: Active Medications Generic Name Dose Route Start Last Admin Trade Name Freq PRN Reason Stop Dose Admin Acetaminophen 500 mg 05/03/19 19:30 Tylenol Tablet PO Q6H PRN Mild Pain (1-3) or Fever Hydrocodone Bitart/Acetaminophen 1 tab 05/03/19 19:30 [place] 5-325 Mg PO Q4H PRN Pain Rated 4-6 Hydrocodone Bitart/Acetaminophen 1 tab 05/03/19 19:30 [place] 7.5-325 Mg PO Q4H PRN Pain Rated 7-10 Amoxicillin/Clavulanate Potassium 1 tablet 05/08/19 21:00 05/08/19 21:00 Aug
[2019-05-09] MEDS: FOLIC ACID 1 MG TABLET PO (09:10)
[2019-05-09] MEDS: THIAMINE HCL 100 MG TABLET PO (09:10)
[2019-05-09] MEDS: TRIHEXYPHENIDYL HCL 1 MG TABLET PO (09:10)
[2019-05-09] MEDS: ENOXAPARIN 40 MG/0.4 ML SYRINGE SUB-Q (09:10)
[2019-05-09] MEDS: TAMSULOSIN HCL 0.4 MG CAPSULE PO (09:10)
[2019-05-09] MEDS: AMOXICILLIN/CLAVULANATE K 875-125 MG TAB 1 TABLET PO (09:10)
--- NOTE | 2019-05-09 11:19 | PM.DS ---
DS: Diagnosis Admitting Diagnosis Admitting Diagnosis: Acute pancreatitis without necrosis or infection, unspecified Discharge Diagnosis (1) Cholelithiasis with acute on chronic cholecystitis without biliary obstruction: Onset Date: ~04/2019 Code(s): K80.12 - Calculus of gallbladder with acute and chronic cholecystitis without obstruction Status: Acute Assessment and Plan: Patient POD [address] Bernstein. He had a severely inflamed gallbladder which was densely adhered with inflammatory adhesions to the right lateral abdominal wall just inferior to the edge of the right lobe of the liver. Dr. Bernstein stated appeared to be severely acute and probable chronic cholecystitis. Patient's WBC continues to be elevated but slightly improved at 12.5k today; patient continues to deny s/sx of infection including cough, urinary symptoms, tooth/gum pain, although full ROS may not be fully reliable due to dementia. He had mild fever 2 nights ago, but afebrile since. CXR on 05/06 showed small pleural effusions and mild atelectasis at lung bases. LFTs improved post-op. Patient had BM again today per Nursing. General Surgery is following and appreciate recommendations IV zosyn was d/c yesterday and Augmentin started last night. Will continue this for 7 days after discharge per Surgery recommendations Since no change on overall status and is afebrile today without a clear alternate source of infection, will continue with antibiotics and have NH follow up with CBC in 2-3 days after finishing antibiotics. Venous doppler negative yesterday for DVT. Urine cultures are negative. Follow up with General surgery in 4-6 weeks (2) Acute pancreatitis: Qualifiers: Acute pancreatitis complication: unspecified Pancreatitis type: unspecified pancreatitis type Qualified Code(s): K85.90 - Acute pancreatitis without necrosis or infection, unspecified Code(s): K85.90 - Acute pancreatitis without necrosis or infection, unspecified Status: Acute Assessment and Plan: CT evidence of acute interstitial pancreatitis with suspicion that the cause is due to possible choledocholelithiasis with also associated elevated LFTs. MRCP showed Normal common bile duct without stones or stricture. Ill-defined pancreas with acute peripancreatic fluid collection. Although lipase is normal, imaging findings remain consistent with interstitial edematous pancreatitis, possibly related to gallstones that have since passed. T1 hyperintense fluid surrounding the pancreas may be proteinaceous or hemorrhagic. Total bilirubin on arrival was 2.7, and has since normalized. Liver enzymes are improved since surgery Patient's lipid profile was normal. Patient's lipase and amylase were normal. Appreciate input from GI and surgery services. (3) Urinary retention: Code(s): R33.9 - Retention of urine, unspecified Status: Acute Assessment and Plan: Patient had Mejia catheter; voiding trial okay; voiding okay per nursing Continue Flomax (4) Hypothyroidism: Code(s): E03.9 - Hypothyroidism, unspecified Status: Chronic Assessment and Plan: The patient's TSH was 6.79 and free T4 was 0.67. Continue levothyroxine at 100 mcg. Will recheck TSH with reflex 4 weeks. Further management per PCP/Prison Physician (5) Alzheimer's dementia: Qualifiers: Alzheimer's disease onset: unspecified onset Dementia behavioral disturbance: without behavioral disturbance Qualified Code(s): G30.9 - Alzheimer's disease, unspecified; F02.80 - Dementia in other diseases classified elsewhere without behavioral disturbance Code(s): G30.9 - Alzheimer's disease, unspecified; F02.80 - Dementia in other diseases classified elsew
[2019-05-09 14:00] VITALS: BP 123/78; PULSE 78; RESP 16; TEMP 37; O2SAT 98
== END 2019-05-09 16:18 | DRG 263 ==
LOC: ANHED 15:57 → ANH2MED 16:57
PROVIDERS: Internal Medicine Gastroenterology; Nurse Practitioner; Physician Assistant; Surgery; Admitting Provider Internal Medicine; Emergency Provider Emergency Medicine; Visit Provider Internal Medicine
PROC: 0FT44ZZ Resection of Gallbladder, Percutaneous Endoscopic Approach (ICD-10-PCS; CPT 47562; principal; 2019-05-03 15:30)
DX: K85.10 Biliary acute pancreatitis without necrosis or infection (principal); K80.12 Calculus of gallbladder with acute and chronic cholecystitis without obstruction; R33.9 Retention of urine, unspecified; E03.9 Hypothyroidism, unspecified; G30.9 Alzheimer's disease, unspecified; F02.80 Dementia in other diseases classified elsewhere, unspecified severity, without behavioral disturbance, psychotic disturbance, mood disturbance, and anxiety; F31.9 Bipolar disorder, unspecified; G40.909 Epilepsy, unspecified, not intractable, without status epilepticus
CPT/HCPCS: 36415; 71046; 74177; 74183; 74300; 76376; 80053; 80061; 80076; 81001; 82150; 83605; 83690; 83735; 84439; 84443; 85025; 86850; 86900; 86901; 87081; 87086; 87880; 88304; 93005; 93970; 94640; 96361; 96374; 96375; 99285; A9270; A9577; G0378; G0379; J0330; J0690; J1100; J1650; J1940; J2060; J2405; J2543; J2704; J3010; J3480; J7030; J7120; Q9967

== ENCOUNTER 2019-05-21 21:15 | Emergency (ER) | payer OTHER, SELFPAY ==
--- NOTE | ~2019-05-21 | CT_ITS ---
EXAMINATION: CT abdomen pelvis w con INDICATION: Abdominal pain TECHNIQUE: Computed tomographic images of the abdomen and pelvis were obtained after the administrati on of 100 cc of Omnipaque 350 intravenous contrast. The dose-length product (DLP) was 648.99 mGy-cm. Automated exposure control and iterative reconstruction technique were employed. COMPARISON: 04/30/2019 FINDINGS: There are small pleural effusions with passive atelectasis of the lower lobes. The heart si ze is normal. There are changes of interval cholecystectomy. The liver, spleen, and adrenal glands ar e normal. There are multiple areas of hypoenhancement within the body of the pancreas. A large peripa ncreatic fluid collection containing gas is present which is increased in size since the comparison e xamination. Gas in the collection is new since the prior examination. The fluid collection tracks int o the bilateral anterior pararenal spaces as well as in the left pericolic gutter. There are no dilat ed loops of bowel. Cysts of the kidneys measure up to 3.2 cm on the right. Nonobstructing stones of t he kidneys measure up to 2 cm on the right. The appendix is normal. No pathologically enlarged abdomi nal or pelvic lymph nodes are identified. There is severe lumbar spondylosis. Colonic diverticulosis is present without evidence of diverticulitis. IMPRESSION: 1. Large gas containing fluid collection of the upper abdomen surrounding the pancreas extending into the anterior pararenal spaces as well as the left pericolic gutter. Finding could reflect infected a cute necrotic collection related to recent pancreatitis versus postoperative abscess. Surgical evalua tion is recommended. These findings and recommendations were discussed with Dr. Annmarie Watson MD in the Emergency Department at 2223 hours on 05/21/2019. Reviewed, dictated and finalized at location [facility]. [facility] IMPRESSION: 1. Large gas containing fluid collection of the upper abdomen surrounding the p ancreas extending into the anterior pararenal spaces as well as the left edmond lic gutter. Finding could reflect infected acute necrotic collection related to recent pancreatitis versus postoperative abscess. Surgical evaluation is recom mended. These findings and recommendations were discussed with Dr. Annmarie tyler MD in the Emergency Department at 2223 hours on 05/21/2019.
--- NOTE | 2019-05-21 21:19 | ED.ABDPAIN ---
HPI - Abdominal Pain General Chief Complaint: Abdominal Pain Stated Complaint: pain Time Seen by Provider: 05/21/19 21:17 Source: patient, EMS and RN notes reviewed Mode of arrival: EMS Limitations: dementia History of Present Illness HPI narrative: Pt is a 73 y/o male who presents to the ED with c/o ABD pain. EMS reports the fpc prompted the pt to come to the ED to be evaluated due to the ABD pain and a decreased appetite. However, the pt denies any ABD pain currently in the ED bed. The pt is unable to answer what month or year it is and seems to be increasingly disoriented, but we are unaware of his baseline. The pt denies nausea or pain anywhere else in his body. A complete HPI is limited due to the pt's dementia. MD elicited complaint: abdominal pain Pertinent past history: none Onset (ago): unknown Associated symptoms: denies other symptoms Related Data Home Medications Medication Instructions Recorded Confirmed donepezil 10 mg PO HS 04/17/19 04/30/19 folic acid 1 mg PO DAILY 04/17/19 04/30/19 levothyroxine 100 mcg PO DAILY 04/17/19 04/30/19 thiamine HCl (vitamin B1) [Vitamin 100 mg PO DAILY 04/17/19 04/30/19 B-1] trihexyphenidyl 1 mg PO BID 04/17/19 04/30/19 mirtazapine [Remeron] 7.5 mg PO HS 04/30/19 04/30/19 aripiprazole mg 05/21/19 Allergies Allergy/AdvReac Type Severity Reaction Status Date / Time No Known Allergies Allergy Verified 04/17/19 17:28 Review of Systems Review of Systems: Narrative: A complete ROS is limited due to the pt's dementia. All systems reviewed & are unremarkable except as noted in HPI and below Constitutional: Constitutional: Reports poor appetite (decreased) and Denies other (pain anywhere else in his body) Gastrointestinal: Gastrointestinal: Reports abdominal pain and Denies nausea PMFSH Past Medical History Medical History (Updated 05/22/19 @ 17:59 by Annmarie Watson MD) Alzheimer's dementia Bipolar disorder Choledocholithiasis Hypothyroidism Psychosis Seizures Surgical History Surgical History No significant past surgical history Social History Social History (Updated 04/30/19 @ 21:17 by Kyleigh Neri NP) Social History: 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 He desires to be a full code and does not have a power claims attorney. He is from his . He denies any alcohol or tobacco abuse Smoking status: Unknown if ever smoked Alcohol intake: unknown Substance use: unknown Substance use type: unknown Additional living arrangements comments: [facility]. Patient does tell me he was previously and now . Gender identity (if verbalized by the patient): Male Spiritual care concerns: No Agree to blood products: Yes Exam Const: General: no acute distress and well developed Orientation/consciousness: oriented to person, oriented to place, oriented to time and patient oriented x3 HENMT: Head: normocephalic Ears: external ears normal General nose exam: Normal external nose present Eyes: General: appearance normal, both eyes and all related structures Conjunctivae: conjunctivae normal Neck: Neck: normal visual inspection and full ROM Chest: Chest palpation & inspection: normal inspection of the chest and no tenderness Resp: Effort & Inspection: normal respiratory effort Auscultation: clear to auscultation bilaterally Cardio: Rate: regular rate Rhythm: regular rhythm GI: GI Palp: Yes abdominal tenderness, Yes Soft to palpation and Yes Tenderness to palpation present (GI) (mild epigastric tenderness) Skin: General skin exam: normal color and turgor normal Neuro: General: other (oriented x2) Cranial nerves: Yes CN's II-XII intact bilaterally Cognition (Neuro): normal cognition Speech: normal speech Sensory Exam: normal sensation Extrem: General: normal to inspection, full ROM and no pedal edema P
[2019-05-21 21:23] VITALS: BP 129/73; PULSE 86; RESP 18; TEMP 36.1; O2SAT 95
[2019-05-21 21:54] LABS: Basophils Absolute Auto 0.1 K/mm3 (0.0-0.1); Basophils Percent Auto 0.5 % (0.2-1.2); Eosinophils Absolute Auto 0.1 K/mm3 (0-0.3); Eosinophils Percent Auto 0.8 % (0-4.4); Hematocrit 47.5 % (42.0-52.0); Hemoglobin 15.2 g/dL (14.0-18.0); Immature Granulocyte Absolute 0.08 K/mm3 (0.00-0.031); Immature Granulocyte Percent A 0.8 % (0-0.5); Lymphocytes Absolute Auto 1.53 K/mm3 (0.9-3.2); Lymphocytes Percent Auto 14.8 % (18.3-44.2); Mean Corpuscular Hemoglobin 29.9 pg (26-34); Mean Corpuscular Volume 93.5 fl (80-100); Monocytes Absolute Auto 0.5 K/mm3 (0.1-0.6); Monocytes Percent Auto 5.1 % (2.6-8.5); Platelet Count Result 367 k/mm3 (150-375); Red Blood Count 5.08 M/mm3 (4.6-6.20); Red Cell Distribution Width 14.5 % (11.5-14.5); White Blood Count 10.3 K/mm3 (4.5-10.0)
[2019-05-21 21:59] LABS: Add Urine Microscopic? YES; Appearance Urine Clear (Clear); Bilirubin Urine Negative (Negative); Blood Urine Negative (Negative); Color Urine Yellow (Yellow); Glucose Urine UA Negative (Negative); Ketones Urine Negative (Negative); Leukocyte Esterase Ur Negative LEU/UL (Negative); Mucus Urine Few /lpf; Nitrate Urine Negative (Negative); Protein Urine Negative (Negative); Specific Grav Ur 1.015 (1.001-1.035); WBC Urine 0-3 /hpf
[2019-05-21 22:06] LABS: Alanine Aminotransferase 16 U/L (4-50); Alkaline Phosphatase 123 U/L (38-126); Aspartate Amino Transferase 24 U/L (17-59); Bilirubin,Total 0.6 mg/dL (0.2-1.3); Blood Urea Nitrogen 12 mg/dL (9-20); Calcium 8.6 mg/dL (8.4-10.2); Carbon Dioxide 27 mmol/L (22-30); Chloride 99 mmol/L (98-107); Estimated CRCL calculation 74 ml/min; Estimated Glomerular Filt Rate > 60; Glucose 107 mg/dL (75-110); Lipase 149 U/L (23-300); Potassium 3.3 mmol/L (3.4-5.0); Sodium 137 mmol/L (137-145)
[2019-05-21] MEDS: POTASSIUM CHLORIDE 20 MEQ TABLET PO (23:10)
[2019-05-21 23:14] VITALS: BP 102/59; PULSE 82; RESP 16; O2SAT 95
--- NOTE | 2019-05-22 00:39 | PC.NURSE ---
[facility] CALLED TO GET PERTINENT INFO REGARDING PT NEEDED FOR BED PLACEMENT. WILL CALL BACK WITH BED ASSIGNMENT WHEN IT BECOMES AVAILABLE.
--- NOTE | 2019-05-22 05:41 | PC.NURSE ---
Spoke with [facility]. No beds are available in the unit at this time. Patient is second in line for a bed.
[2019-05-22 06:00] VITALS: BP 96/69; PULSE 84; RESP 18; O2SAT 91
--- NOTE | 2019-05-22 06:19 | PC.NURSE ---
Jany from [facility] called to give bed assignment of [id number] and to call report to [phone].
--- NOTE | 2019-05-22 06:53 | PC.NURSE ---
Called [facility] to transport patient to [place]. ETA 15-20 minutes.
--- NOTE | 2019-05-22 06:58 | PC.NURSE ---
this rn called all 3 contacts on pt's face sheet from group home with no answer. Cele Kelley at [phone] (sister); this number is disconnected. sister abdullahi daily at [phone] did not answer. pts daughter marlon kwong at [phone] did not answer. Pt is being transfered to [place] [facility] as a direct admission as implied consent.
[2019-05-22 07:15] VITALS: BP 127/72; PULSE 87; RESP 20
== END 2019-05-22 07:30 | disposition short-term general hospital (02) ==
LOC: ANHED 21:34
PROVIDERS: Emergency Provider Emergency Medicine
DX: R18.8 Other ascites (principal); G30.9 Alzheimer's disease, unspecified; F02.80 Dementia in other diseases classified elsewhere, unspecified severity, without behavioral disturbance, psychotic disturbance, mood disturbance, and anxiety; E03.9 Hypothyroidism, unspecified; F31.9 Bipolar disorder, unspecified
CPT/HCPCS: 36415; 74177; 80053; 81001; 83690; 85025; 96365; 99284; A9270; J2543; Q9967

== ENCOUNTER 2019-06-02 19:42 | Observation (INO) | payer OTHER, SELFPAY ==
--- NOTE | ~2019-06-02 | CT_ITS ---
EXAMINATION: CT abdomen pelvis w con INDICATION: Generalized abdominal pain TECHNIQUE: Computed tomographic images of the abdomen and pelvis were obtained after the administrati on of 100 cc of Omnipaque 350 intravenous contrast. The dose-length product (DLP) was 528.63 mGy-cm. Automated exposure control and iterative reconstruction technique were employed. COMPARISON: 05/21/2019, 05/08/2019 FINDINGS: Minimal dependent atelectasis is present in the lung bases. The heart size is normal. Again seen is a large gas containing peripancreatic fluid collection which demonstrates slight increase in size. Ove rall configuration is not significantly changed since the prior examination. The pancreas itself is i ll-defined and poorly enhancing in several areas. The liver, spleen, and adrenal glands are normal. C ysts of the kidneys measure up to 3.2 cm on the right. There is a 1.7 cm stone of the right kidney up per pole. No pathologically enlarged abdominal or pelvic lymph nodes are identified. There are no dil ated loops of bowel. The gallbladder is surgically absent. There is severe lumbar spondylosis. Coloni c diverticulosis is present without evidence of diverticulitis. IMPRESSION: 1. Large, gas-containing, peripancreatic fluid collection of the upper abdomen similar configuration to the prior examinations with slight increase in size. Findings likely reflect infected acute necrot ic collection related to necrotizing pancreatitis. As previously discussed, differential would includ e postoperative abscess post cholecystectomy. These findings were discussed with Dr. Atilio alfred DO in the Emergency Department at 2118 hours on 06/02/2019 21:17 ELECTRICAL INTERN. Reviewed, dictated and finalized at location A. [facility] IMPRESSION: 1. Large, gas-containing, peripancreatic fluid collection of the upper abdomen similar configuration to the prior examinations with slight increase in size. F indings likely reflect infected acute necrotic collection related to necrotizin g pancreatitis. As previously discussed, differential would include postoperati ve abscess post cholecystectomy. These findings were discussed with Dr. Atilio Camp DO in the Emergency Department at 2118 hours on 06/02/2019 21:17 ELECTRICAL INTERN .
--- NOTE | 2019-06-02 19:48 | ED.RECABL ---
HPI - Recheck/Abnormal Lab/Rx General Chief Complaint: Unspecified Stated Complaint: abnormal labs Time Seen by Provider: 06/02/19 19:49 Source: patient and RN notes reviewed Mode of arrival: EMS Limitations: no limitations History of Present Illness HPI narrative: Pt is a 73 y/o male who presents to the ED via EMS with c/o abnormal labs. According to the pt's old records, he was recently evaluated here on 04/30/19, and was admitted to the hospital for acute pancreatitis. He then received a cholecystectomy on 05/03/19. During the operation, there was a complication involving increased fluid surrounding the pancreas. Pt was then transferred to [facility] where he had a blood culture that grew Staphyloccus epidermidis. He was subsequently placed on a 14-day course of Doxycycline. Pt later received negative blood cultures on 05/24 and 05/28. According to his records, he had one out of two blood cultures taken on 05/30 come back positive for Morganella morganii. Pt states that he currently feels pretty good, and denies any CP, ABD pain, nausea, vomiting, or cough. MD complaint: abnormal lab Initial visit (ago): day(s) (3) Returns today for: called because of abnormal lab/test Description of abnormal result: Blood culture positive for Morganella morganii. Symptoms since prior visit: no new symptoms Context: called for positive culture result Associated symptoms: none Related Data Home Medications Medication Instructions Recorded Confirmed donepezil 10 mg PO HS 04/17/19 04/30/19 folic acid 1 mg PO DAILY 04/17/19 04/30/19 levothyroxine 100 mcg PO DAILY 04/17/19 04/30/19 thiamine HCl (vitamin B1) [Vitamin 100 mg PO DAILY 04/17/19 04/30/19 B-1] trihexyphenidyl 1 mg PO BID 04/17/19 04/30/19 mirtazapine [Remeron] 7.5 mg PO HS 04/30/19 04/30/19 aripiprazole mg 05/21/19 Allergies Allergy/AdvReac Type Severity Reaction Status Date / Time No Known Allergies Allergy Verified 04/17/19 17:28 Review of Systems Review of Systems: All systems reviewed & are unremarkable except as noted in HPI and below Cardiovascular: Cardiovascular: Denies chest pain Respiratory: Respiratory: Denies cough Gastrointestinal: Gastrointestinal: Denies abdominal pain, Denies nausea and Denies vomiting PMFSH Past Medical History Medical History Abnormal urinalysis Acute pancreatitis Alzheimer's dementia Bipolar disorder Choledocholithiasis Hypothyroidism Psychosis Seizures Urinary tract infection Surgical History Surgical History S/P cholecystectomy Social History Social History Social History: 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 He desires to be a full code and does not have a power sports attorney. He is from his . He denies any alcohol or tobacco abuse Smoking status: Unknown if ever smoked Alcohol intake: unknown Substance use: unknown Substance use type: unknown Additional living arrangements comments: [facility]. Patient does tell me he was previously and now . Gender identity (if verbalized by the patient): Male Spiritual care concerns: No Agree to blood products: Yes Exam Narrative: Exam Narrative: APPEARANCE: No acute distress, nontoxic, resting in bed EYES: EOMI HEENT: Normocephalic, atraumatic, OMM RESPIRATORY: No respiratory distress Clear to auscultation bilaterally with no rhonchi wheezing or rales. CARDIOVASCULAR: Regular rate and rhythm without murmurs rubs or gallops. ABDOMINAL: Soft, nontender, nondistended, no rebound or guarding MUSCULOSKELETAl: Moves all extremities. No clubbing, cyanosis or edema. NEURO: Awake and alert. Following commands, speech normal, no focal deficits SKIN:: Warm, dry. No rashes lesions or abrasions PSYCHIATRIC: Normal affect/mood, Course Course Emergenc
[2019-06-02 19:50] VITALS: BP 117/96; PULSE 89; RESP 18; TEMP 37.1; O2SAT 96
--- NOTE | 2019-06-02 19:50 | PC.NURSE ---
Patient given meal and drink per verbal order from Dr Camp.
[2019-06-02 20:26] LABS: Basophils Absolute Auto 0.1 K/mm3 (0.0-0.1); Basophils Percent Auto 0.5 % (0.2-1.2); Eosinophils Absolute Auto 0.1 K/mm3 (0-0.3); Eosinophils Percent Auto 0.6 % (0-4.4); Hematocrit 40.4 % (42.0-52.0); Hemoglobin 12.9 g/dL (14.0-18.0); Immature Granulocyte Absolute 0.04 K/mm3 (0.00-0.031); Immature Granulocyte Percent A 0.3 % (0-0.5); Lymphocytes Absolute Auto 1.35 K/mm3 (0.9-3.2); Lymphocytes Percent Auto 11.5 % (18.3-44.2); Mean Corpuscular HGB Conc 31.9 g/dl (32-36); Mean Corpuscular Hemoglobin 30.3 pg (26-34); Mean Corpuscular Volume 94.8 fl (80-100); Mean Platelet Volume 9.4 fl (7.4-10.4); Monocytes Absolute Auto 0.8 K/mm3 (0.1-0.6); Monocytes Percent Auto 6.5 % (2.6-8.5); Neutrophils Absolute Auto 9.5 K/mm3 (1.3-6.7); Neutrophils Percent Auto 80.6 % (45.5-73.1); Platelet Count Result 302 k/mm3 (150-375); Red Blood Count 4.26 M/mm3 (4.6-6.20); Red Cell Distribution Width 15.9 % (11.5-14.5); White Blood Count 11.8 K/mm3 (4.5-10.0)
[2019-06-02 20:37] LABS: Alanine Aminotransferase 17 U/L (4-50); Albumin Level 3.2 g/dL (3.5-5.1); Alkaline Phosphatase 112 U/L (38-126); Aspartate Amino Transferase 27 U/L (17-59); Bilirubin,Total 1.1 mg/dL (0.2-1.3); Blood Urea Nitrogen 21 mg/dL (9-20); Calcium 8.7 mg/dL (8.4-10.2); Carbon Dioxide 27 mmol/L (22-30); Chloride 97 mmol/L (98-107); Estimated CRCL calculation 66 ml/min; Estimated Glomerular Filt Rate > 60; Glucose 87 mg/dL (75-110); Potassium 3.4 mmol/L (3.4-5.0); Sodium 136 mmol/L (137-145)
[2019-06-02] MEDS: ERTAPENEM 1 GM/NS 50 ML 1 GM/50 ML BAG IVPB (21:23)
[2019-06-02 21:40] LABS: Lipase 90 U/L (23-300)
[2019-06-02 21:45] LABS: Prothrombin Time 12.8 Seconds (11.1-14.7)
[2019-06-02 21:46] LABS: Partial Thromboplastin Time 30.7 SECONDS (22.3-36.8)
[2019-06-02 23:02] VITALS: BP 109/66; PULSE 84; RESP 18; O2SAT 98
[2019-06-02 23:19] VITALS: BP 106/62; PULSE 92; RESP 18; TEMP 36.8; O2SAT 96; BMI 24.8
--- NOTE | 2019-06-02 23:27 | ADMGEN ---
This patient, Luis Corral, was admitted to [facility] Surg Room 324-01 at 2310. Patient/family oriented to hospital policies and general routines including ID bracelet, bed and alarms, visiting hours, pain management, procedures, bathroom and other care routines, personal items, smoking policy, room service/diet, and visiting hours. Valuables list has been completed. Information on how to activate the Rapid Response Team has been discussed. Patient/Family are encouraged to report perceived risks to care and to ask questions if they do not understand what they are told or what they should do.
[2019-06-03 06:00] VITALS: BP 114/57; PULSE 70; RESP 16; TEMP 36.8; O2SAT 96
[2019-06-03 09:00] LABS: Basophils Absolute Auto 0.1 K/mm3 (0.0-0.1); Basophils Percent Auto 0.5 % (0.2-1.2); Eosinophils Absolute Auto 0.1 K/mm3 (0-0.3); Eosinophils Percent Auto 0.7 % (0-4.4); Hematocrit 37.5 % (42.0-52.0); Hemoglobin 11.9 g/dL (14.0-18.0); Immature Granulocyte Absolute 0.05 K/mm3 (0.00-0.031); Immature Granulocyte Percent A 0.5 % (0-0.5); Lymphocytes Absolute Auto 1.38 K/mm3 (0.9-3.2); Lymphocytes Percent Auto 14.5 % (18.3-44.2); Mean Corpuscular HGB Conc 31.7 g/dl (32-36); Mean Corpuscular Hemoglobin 29.9 pg (26-34); Mean Corpuscular Volume 94.2 fl (80-100); Mean Platelet Volume 9.2 fl (7.4-10.4); Monocytes Absolute Auto 0.9 K/mm3 (0.1-0.6); Monocytes Percent Auto 8.9 % (2.6-8.5); Neutrophils Absolute Auto 7.1 K/mm3 (1.3-6.7); Neutrophils Percent Auto 74.9 % (45.5-73.1); Platelet Count Result 282 k/mm3 (150-375); Red Blood Count 3.98 M/mm3 (4.6-6.20); White Blood Count 9.5 K/mm3 (4.5-10.0)
[2019-06-03 09:10] LABS: Alanine Aminotransferase 14 U/L (4-50); Albumin Level 2.7 g/dL (3.5-5.1); Alkaline Phosphatase 91 U/L (38-126); Aspartate Amino Transferase 21 U/L (17-59); Blood Urea Nitrogen 19 mg/dL (9-20); Calcium 8.2 mg/dL (8.4-10.2); Carbon Dioxide 24 mmol/L (22-30); Chloride 98 mmol/L (98-107); Estimated CRCL calculation 74 ml/min; Estimated Glomerular Filt Rate > 60; Glucose 98 mg/dL (75-110); Magnesium 1.8 mg/dL (1.6-2.3); Potassium 3.4 mmol/L (3.4-5.0); Sodium 135 mmol/L (137-145)
--- NOTE | 2019-06-03 12:37 | PM.IMHP ---
H&P: HPI History of Present Illness Chief complaint: Septicemia, peripancreatic fluid collection Narrative: Luis Corral is a 73 year old male Patient was discharged from the hospital on May 09 and after he had a lap bud chronic cholecystitis patient was sent nursing he again presented emergency department on May 21 he was evaluated emergency department and after consulting the surgery patient was transferred to the [facility] and from there he was discharged back to the care home on oral antibiotic, unfortunately patient is quite demented unable to provide any history he again presented emergency department early this morning with abdominal pain is also found to have Large, gas-containing, peripancreatic fluid collection of the upper abdomen similar configuration to the prior examinations with slight increase in size. Findings likely reflect infected acute necrotic collection related to necrotizing pancreatitis. As previously discussed, differential would include postoperative abscess post cholecystectomy. 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 He is from his . He denies any alcohol or tobacco abuse Smoking status: Unknown if ever smoked Additional smoking assessment comments: patient reports that he never smoked Alcohol intake: unknown Substance use: unknown Substance use type: unknown Additional living arrangements comments: [facility]. Patient does tell me he was previously and now . Gender identity (if verbalized by the patient): Male Spiritual care concerns: No Agree to blood products: Yes Meds Home Medications and Allergies Home Medications Medication Instructions Recorded Confirmed Type donepezil [Aricept] 10 mg PO DAILY 04/17/19 06/02/19 History folic acid 1 mg PO DAILY 04/17/19 06/02/19 History levothyroxine 100 mcg PO DAILY 04/17/19 06/02/19 History thiamine HCl (vitamin B1) [Vitamin 100 mg PO DAILY 04/17/19 06/02/19 History B-1] trihexyphenidyl 2 mg PO BID 04/17/19 06/02/19 History mirtazapine [Remeron] 7.5 mg PO HS 04/30/19 06/02/19 History tamsulosin 0.4 mg PO QAM #30 cap 05/09/19 06/02/19 Rx aripiprazole [Abilify] 10 mg PO DAILY 05/21/19 06/02/19 History acetaminophen [Tylenol] 650 mg PO Q4-6H PRN 06/02/19 06/02/19 History ondansetron HCl [Zofran] 4 mg PO Q6H PRN 06/02/19 06/02/19 History Allergies Allergy/AdvReac Type Severity Reaction Status Date / Time No Known Allergies Allergy Verified 04/17/19 17:28 Vital Signs Vital Signs - 24 hr 06/02/19 19:50 06/02/19 23:02 06/02/19 23:19 Temperature 98.8 F 98.3 F Pulse Rate 89 84 92 Respiratory Rate 18 18 18 Blood Pressure 117/96 H 109/66 106/62 Pulse Oximetry 96 98 96 06/03/19 06:00 Temperature 98.2 F Pulse Rate 70 Respiratory Rate 16 Blood Pressure 114/57 L Pulse Oximetry 96 Exam Narrative: Exam Narrative: Patient is demented unable to provide any review of symptoms or history Const: General: comfortable and no acute distress HENMT: General nose exam: Normal nares present Mouth: Yes moist mucous membranes Eyes: General: appearance
--- NOTE | 2019-06-03 12:37 | PM.TDS ---
Transfer Discharge Sum: Prov Provider Date of admission: 06/02/19 22:22 Primary care physician: Ranjit Daugherty, Admitting clinician: Angelique Serrato DO Consults: 06/02/19 22:22 Consult to Physician Routine Comment: Consulting Provider: Corbin Dorman Reason for consultation: Septicemia Has provider been notified: Yes 06/03/19 Consult to Physician Routine Comment: SPOKE TO OFFICE @0830 (MI,) Consulting Provider: Luis Alberts call or contact centre operator/MD group to consult: Dr. Bernstein, surgeon Reason for consultation: panceatic abscess and drainage Has provider been notified: Yes DS: Diagnosis Admitting Diagnosis Admitting Diagnosis: Patient was discharged from the hospital on May 09 and after he had a lap bud chronic cholecystitis patient was sent nursing he again presented emergency department on May 21 he was evaluated emergency department and after consulting the surgery patient was transferred to the [facility] and from there he was discharged back to the [facility] on oral antibiotic, unfortunately patient is quite demented unable to provide any history he again presented emergency department early this morning with abdominal pain is also found to have Large, gas-containing, peripancreatic fluid collection of the upper abdomen similar configuration to the prior examinations with slight increase in size. Findings likely reflect infected acute necrotic collection related to necrotizing pancreatitis. As previously discussed, differential would include postoperative abscess post cholecystectomy. ER physician spoke with the surgical fellow at the [facility] and patient is been accepted and will be transferred, ER physician also consulted ID and ertpanem was started Discharge Diagnosis (1) Bacterial infection due to Morganella morganii: Onset Date: 05/30/19 Code(s): A49.8 - Other bacterial infections of unspecified site Status: Acute Assessment and Plan: Luis Corral is a 73 year old male Patient was discharged from the hospital on May 09 and after he had a lap bud chronic cholecystitis patient was sent nursing he again presented emergency department on May 21 he was evaluated emergency department and after consulting the surgery patient was transferred to the [facility] and from there he was discharged back to the [facility] on oral antibiotic, unfortunately patient is quite demented unable to provide any history he again presented emergency department early this morning with abdominal pain is also found to have Large, gas-containing, peripancreatic fluid collection of the upper abdomen similar configuration to the prior examinations with slight increase in size. Findings likely reflect infected acute necrotic collection related to necrotizing pancreatitis. As previously discussed, differential would include postoperative abscess post cholecystectomy. ER physician spoke with the surgical fellow at the [facility] and patient is been accepted and will be transferred, ER physician also consulted ID and ertpanem was started, patient be transferred to the [facility] once the bed is available Transfer Discharge Sum: Med Medications Active and Home Medications: Home Medications donepezil [Aricept] 10 mg PO DAILY 04/17/19 [History Confirmed 06/02/19] folic acid 1 mg PO DAILY 04/17/19 [History Confirmed 06/02/19] levothyroxine 100 mcg PO DAILY 04/17/19 [History Confirmed 06/02/19] thiamine HCl (vitamin B1) [Vitamin B-1] 100 mg PO DAILY 04/17/19 [History Confirmed 06/02/19] trihexyphenidyl 2 mg PO BID 04/17/19 [History Confirmed 06/02/19] mirtazapine [Remeron] 7.5 mg PO HS 04/30/19 [History Confirmed 06/02/19] tamsulosin 0.4 mg PO QAM #30 cap 05/09/19 [Rx Confirmed 06/02/19] aripiprazole [Abilify] 10 mg PO DAILY 05/21/19 [History Confirmed 06/02/19] acetaminophen [Tylenol] 650 mg PO Q4-6H PRN 06/02/19 [History Confirmed 06/02/19] ondansetron HCl [Zofran] 4 mg PO
--- NOTE | 2019-06-03 13:16 | WPDINFPN2 ---
Progress Note: A&P Assessment and Plan (1) Bacterial infection due to Morganella morganii: Onset Date: 05/30/19 Code(s): A49.8 - Other bacterial infections of unspecified site Status: Acute Assessment and Plan: 1. 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 2. CNSS bacteremia, microbiologic cure 3. Dementia 4. Choelcystectomy REC Ertapenem # 2 / 14 days. Previously, not a surgical candidate. Subjective Date/time seen: 06/03/19 13:16 Objective Data Vital Signs Vital Signs: Vital Signs - 24 hr 06/02/19 19:50 06/02/19 23:02 06/02/19 23:19 Temperature 37.1 C 36.8 C Pulse Rate 89 84 92 Respiratory Rate 18 18 18 Blood Pressure 117/96 H 109/66 106/62 Pulse Oximetry 96 98 96 06/03/19 06:00 Temperature 36.8 C Pulse Rate 70 Respiratory Rate 16 Blood Pressure 114/57 L Pulse Oximetry 96 Intake/Output Intake/Output: Intake & Output 05/31/19 06/01/19 06/02/19 06/03/19 23:59 23:59 23:59 23:59 Intake Total 50 360 Output Total 300 Balance 50 60 Meds/Results Medications: Active Medications Generic Name Dose Route Start Last Admin Trade Name Freq PRN Reason Stop Dose Admin Ertapenem 1 gm in 50 mls @ 100 mls/hr 06/03/19 21:00 Invanz 1 Gm/Ns 50 Ml IVPB Q24H LUPE Radiology Results: ITS Impressions Abdomen/Pelvis CT 06/02/19 21:05 IMPRESSION: 1. Large, gas-containing, peripancreatic fluid collection of the upper abdomen similar configuration to the prior examinations with slight increase in size. Findings likely reflect infected acute necrotic collection related to necrotizing pancreatitis. As previously discussed, differential would include postoperative abscess post cholecystectomy. These findings were discussed with Dr. 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 Labs Labs: Laboratory Results - last 24 hr 06/02/19 06/02/19 06/02/19 20:18 20:18 20:18 WBC 11.8 H RBC 4.26 L Hgb 12.9 L Hct 40.4 L MCV 94.8 MCH 30.3 MCHC 31.9 L RDW 15.9 H Plt Count 302 MPV 9.4 Immature Gran % (Auto) 0.3 Neut % (Auto) 80.6 H Lymph % (Auto) 11.5 L [place] % (Auto) 6.5 Eos % (Auto) 0.6 Baso % (Auto) 0.5 Lymph # (Auto) 1.35 [place] # (Auto) 0.8 H Eos # (Auto) 0.1 Baso # (Auto) 0.1 Abs Immat Gran (auto) 0.04 H Absolute Neuts (auto) 9.5 H Absolute Nucleated RBC 0.0 Nucleated RBC % 0.0 PT 12.8 INR 1.0 APTT 30.7 Sodium 136 L Potassium 3.4 Chloride 97 L Carbon Dioxide 27 BUN 21 H Creatinine 0.90 Estim Creat Clear Calc 66 Estimated GFR > 60 Glucose 87 Calcium 8.7 Magnesium Total Bilirubin 1.1 AST 27 ALT 17 Alkaline Phosphatase 112 Total Protein 8.0 Albumin 3.2 L Lipase 06/02/19 06/03/19 06/03/19 20:18 08:51 08:51 WBC 9.5 RBC 3.98 L Hgb 11.9 L Hct 37.5 L MCV 94.2 MCH 29.9 MCHC 31.7 L RDW 16.0 H Plt Count 282 MPV 9.2 Immature Gran % (Auto) 0.5 Neut % (Auto) 74.9 H Lymph % (Auto) 14.5 L [place] % (Auto) 8.9 H Eos % (Auto) 0.7 Baso % (Auto) 0.5 Lymph # (Auto) 1.38 [place] # (Auto) 0.9 H Eos # (Auto) 0.1 Baso # (Auto) 0.1 Abs Immat Gran (auto) 0.05 H Absolute Neuts (auto) 7.1 H Absolute Nucleated RBC 0.0 Nucleated RBC % 0.0 PT INR APTT Sodium 135 L Potassium 3.4 Chloride 98 Carbon Dioxide 24 BUN 19 Creatinine 0.80 Estim Creat Clear Calc 74 Estimated GFR > 60 Glucose 98 Calcium 8.2 L Magnesium 1.8 Total Bilirubin 1.0 AST 21 ALT 14 Alkaline Phosphatase 91 Total Protein 7.0 Albumin 2.7 L Lipase 90
--- NOTE | 2019-06-03 15:37 | CONS_ITS ---
DATE OF CONSULTATION: 06/03/2019 REASON FOR CONSULTATION: Morganella bacteremia. HISTORY OF PRESENT ILLNESS: The patient is a 73-year-old male with dementia and he can provide very limited coherent history. He was here in this hospital in the 3rd week of April and underwent laparoscopic cholecystectomy, who was discharged to his usual SNF. Due to confusion and weakness, he was sent back to the emergency room here on May 22, where CT scan showed a pancreatic fluid collection. He then was transferred to [facility] and was there for 7 days, and discharged on May 29, for reasons that are not apparent on his available records. Blood cultures were performed at his prison on the following evening, 05/30/2019, and reported back as positive on June 02, in response, he was sent back to this emergency room and admitted. He has been started on ertapenem and consultation was requested. ALLERGIES: NONE KNOWN. MEDICATIONS: Medication list as prison reviewed. No immunosuppressants. He was on doxycycline for Staph not aureus bacteremia at [facility], now on hold. HABITS: Presumably no tobacco. No alcohol to excess. PAST MEDICAL HISTORY: In addition to the above, bipolar disorder, hypothyroidism, seizure disorder, past UTI, and protein-calorie malnutrition. REVIEW OF SYSTEMS: A 14-point review attempted, not obtainable from the patient in a meaningful fashion due to dementia and memory loss. FAMILY HISTORY: Not pertinent to his present illness. SOCIAL HISTORY: Presently, no family at the bedside. 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 He is listed as being and retired. PHYSICAL EXAMINATION: GENERAL: This is an elderly male who appears his actual age, not cachectic, no acute distress, afebrile since arrival last evening, 114/57, 70, 16, 96% on room air. SKIN: Warm and dry. He has laparoscopy scars over the right upper quadrant without evidence of erythema, fluctuance, or drainage. NODES: No cervical adenopathy. EENT: The conjunctivae are clear. No icterus. Teeth in fair repair. NECK: Without meningismus, mass, tenderness, or thyromegaly. LUNGS: Clear to auscultation. CARDIAC: Regular rate and rhythm with a grade 1/6 systolic flow murmur, left sternal border. No heaves. PMI not displaced. ABDOMEN: Nontender, nondistended. No organomegaly. No masses. EXTREMITIES: Without clubbing, cyanosis, or edema. LABORATORY DATA: Blood cultures are 1 of 2 sets for the above organism, I reviewed the susceptibilities including ANDREW values. Blood cultures have been repeated last evening as his MRSA screen. His blood cultures were not done here previously. White blood cell count last evening 11.8, now normal 9.5, hemoglobin 11.9, which is down slightly. Platelets 282 with a minimal left shift on differential. He has hyponatremia at 135 and an albumin 2.7; otherwise, normal chemistry panel. Urinalysis not repeated. RADIOLOGICAL DATA: Abdomen and pelvic CT last evening compared to 05/21, showed gas-containing peripancreatic fluid collection, slight increase in size since previously suspected necrotizing pancreatitis. Others findings all stable. ASSESSMENT: 1. Morganella bacteremia with infection, due to pancreatic abscess. Other sources less likely including pulmonary, skin, soft tissue, , lower GI, or other biliary source. Not a skin contaminant. 2. Pancreatic fluid collection after gallbladder removal, previously judged not to be a surgical candidate for invasive or percutaneous drainage. 3. Alzheimer's dementia. 4. Leukocytosis, resolved. RECOMMENDATIONS: I agree with ertapenem. If no surgical intervention planned, then 14 days of therapy would be appropriate following a white blood cell count over t
== END 2019-06-03 19:22 ==
LOC: ANHED 21:51 → ANH3MEDSUR 22:32
PROVIDERS: Admitting Provider Internal Medicine; Emergency Provider Emergency Medicine; Visit Provider Family Medicine
DX: A49.8 Other bacterial infections of unspecified site (principal); K85.80 Other acute pancreatitis without necrosis or infection; Z90.49 Acquired absence of other specified parts of digestive tract; G30.9 Alzheimer's disease, unspecified; F02.80 Dementia in other diseases classified elsewhere, unspecified severity, without behavioral disturbance, psychotic disturbance, mood disturbance, and anxiety; F31.9 Bipolar disorder, unspecified; E03.9 Hypothyroidism, unspecified; G40.909 Epilepsy, unspecified, not intractable, without status epilepticus; E46 Unspecified protein-calorie malnutrition; Z68.24 Body mass index [BMI] 24.0-24.9, adult; Z79.899 Other long term (current) drug therapy
CPT/HCPCS: 36415; 74177; 80053; 83690; 83735; 85025; 85610; 85730; 87040; 87081; 96365; 99285; G0378; G0379; J1335; Q9967

== ENCOUNTER 2019-10-31 18:31 | Emergency (ER) | payer OTHER, SELFPAY ==
--- NOTE | ~2019-10-31 | CT_ITS ---
EXAMINATION: CT brain wo con INDICATION: Head injury COMPARISON: 04/17/2019 TECHNIQUE: Standard unenhanced head CT. The dose-length product (DLP) was 605.33 mGy-cm. The mA was a djusted according to patient size. Iterative reconstruction technique was employed. FINDINGS: There is no acute intraparenchymal hemorrhage. No evidence of mass lesion. No evidence of a cute infarction. There is mild periventricular and subcortical hypodensity probably related to small vessel ischemic disease. There is moderate prominence of the sulci and ventricles related to cerebral atrophy. Intracranial calcified cerebral atherosclerosis is noted. There are no extra-axial collecti ons. There is no mass effect or midline shift. The orbits are unremarkable. There is a high right par ietal scalp laceration and hematoma. There is mild mucosal thickening of the paranasal sinuses. IMPRESSION: 1. No acute intracranial abnormality. 2. Age related findings. Reviewed, dictated and finalized at location [facility].
[2019-10-31 18:38] VITALS: BP 137/75; PULSE 70; RESP 20; TEMP 36.4; O2SAT 95
[2019-10-31 18:42] VITALS: RESP 14
[2019-10-31] MEDS: TETANUS,DIPHTHERIA,AC PERTUSSIS ADULT (0.5 ML) BOOSTRIX IM (19:26)
--- NOTE | 2019-10-31 20:03 | ED.FALL ---
HPI - Fall General Chief Complaint: Fall Stated Complaint: fall Time Seen by Provider: 10/31/19 19:12 History of Present Illness HPI Narrative: Patient is a 74-year-old male who presents ER from the halfway. Had a ground-level fall in which he struck his head. No known loss of consciousness. Has a sizable laceration over the occiput. No blood thinners. Oriented x1 at baseline. Related Data Home Medications Medication Instructions Recorded Confirmed donepezil [Aricept] 10 mg PO DAILY 04/17/19 06/02/19 folic acid 1 mg PO DAILY 04/17/19 06/02/19 levothyroxine 100 mcg PO DAILY 04/17/19 06/02/19 thiamine HCl (vitamin B1) [Vitamin 100 mg PO DAILY 04/17/19 06/02/19 B-1] trihexyphenidyl 2 mg PO BID 04/17/19 06/02/19 mirtazapine [Remeron] 7.5 mg PO HS 04/30/19 06/02/19 aripiprazole [Abilify] 10 mg PO DAILY 05/21/19 06/02/19 acetaminophen [Tylenol] 650 mg PO Q4-6H PRN 06/02/19 06/02/19 ondansetron HCl [Zofran] 4 mg PO Q6H PRN 06/02/19 06/02/19 Allergies Allergy/AdvReac Type Severity Reaction Status Date / Time No Known Allergies Allergy Verified 06/19/19 09:07 Review of Systems Review of Systems: ROS unobtainable: Yes unobtainable due to mental status [facility] Social History Social History Social History: 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 He desires to be a full code and does not have a power commercial real estate attorney. He is from his . He denies any alcohol or tobacco abuse Smoking status: Unknown if ever smoked Additional smoking assessment comments: patient reports that he never smoked Alcohol intake: unknown Substance use: unknown Substance use type: unknown Additional living arrangements comments: [facility]. Patient does tell me he was previously and now . Gender identity (if verbalized by the patient): Male Spiritual care concerns: No Agree to blood products: Yes Exam Narrative: Exam Narrative: GENERAL: Well-appearing, well-nourished, and in no acute distress. HEAD: Normocephalic, 3.5 cm superficial laceration to occiput. CHEST: Clear to auscultation. No respiratory distress. HEART: Regular rate and rhythm. Normal peripheral pulses. EXTREMITIES: Normal range of motion. No edema. SKIN: Warm, dry, no rash. NEURO: Alert and oriented x1. Course Vital Signs Vital signs: Vital Signs Temperature 97.5 F L 10/31/19 18:38 Pulse Rate 70 10/31/19 18:38 Respiratory Rate 20 10/31/19 18:38 Blood Pressure 137/75 10/31/19 18:38 Pulse Oximetry 95 10/31/19 18:38 Temperature 97.5 F L 10/31/19 18:38 Pulse Rate 70 10/31/19 18:38 Respiratory Rate 14 10/31/19 18:42 Blood Pressure 137/75 10/31/19 18:38 Pulse Oximetry 95 10/31/19 18:38 Procedures Laceration Laceration 1: Date: 10/31/19 Time: 20:55 Site: scalp Size (cm): 3.2 Depth: simple, single layer Local Anesthetic: none ====== Skin Level ====== Skin layer closed with: richa Number of sutures: 4 ====== Subcutaneous Layer ====== ====== Muscle Layer ====== ====== Tendon Layer ====== Discharge Plan Discharge Clinical Impression: Laceration of scalp Patient Disposition: Home, Self-Care Condition: Stable Instructions: Laceration (ED) Additional Instructions: Return the ER if you have fever over 100.4 ?F, you have chest pain shortness of breath, you lose consciousness, you have additional concerns. Please remove your richa in 1 week Prescriptions: No Action thiamine HCl (vitamin B1) [Vitamin B-1] 100 mg Tablet 100 mg PO DAILY RF: 0 levothyroxine 100 mcg Tablet 100 mcg PO DAILY RF: 0 folic acid 1 mg Tablet 1 mg PO DAILY RF: 0 trihexyphenidyl 2 mg Tablet 2 mg PO BID RF: 0 donepezil [Aricept] 10 mg Tablet 10 mg PO DAILY RF: 0 mirtazapine [Remeron] 15 mg
[2019-10-31 21:13] VITALS: BP 132/70; PULSE 68; RESP 20; O2SAT 95
[2019-10-31 22:01] VITALS: BP 134/76; PULSE 76; RESP 16; TEMP 36.3; O2SAT 95
== END 2019-10-31 22:02 ==
PROVIDERS: Emergency Provider Emergency Medicine
DX: S01.01XA Laceration without foreign body of scalp, initial encounter (principal); Z23 Encounter for immunization; W18.30XA Fall on same level, unspecified, initial encounter
CPT/HCPCS: 12002; 70450; 90471; 90715; 99284

== ENCOUNTER 2022-03-04 07:03 | Emergency (ER) | payer OTHER, SELFPAY ==
[2022-03-04] VITALS (16 sets, daily range): BP systolic 108–130; BP diastolic 69–91; PULSE 60–65; RESP 18; O2SAT 95–100
--- NOTE | ~2022-03-04 | CT_ITS ---
EXAMINATION: CT cervical spine wo con DATE: 03/04/2022 08:02 INDICATION: Fall. Left eyebrow abrasion. Altered mental state. TECHNIQUE: Computed tomography (CT) of the cervical spine was performed without intravenous contrast. Automated exposure control and iterative reconstruction technique were employed. Exam dose: 418.28 mGy-cm total exam DLP. COMPARISON: None FINDINGS: There is reversal cervical curvature which may be due to muscle spasm or positioning. C1 and C2 are normally aligned and the odontoid process is intact. No fracture or dislocation or lock ed facet or prevertebral soft tissue swelling. There is severe degenerative disc disease at C3-4, C4-5 and C6-7. There is fusion at C5-6 intervertebral disc space and posterior elements. IMPRESSION: Reversal of cervical curvature Fusion of anterior and posterior elements at C5-6 Severe degenerative disc disease at C3-4, C4-5 and C6-7 No fracture or dislocation or locked facet Reviewed, dictated and finalized at [facility]. Reviewed, dictated and finalized at location [facility]. ETING PROGRAM MANAGER
--- NOTE | ~2022-03-04 | CT_ITS ---
EXAMINATION: CT brain wo con DATE: 03/04/2022 08:02 INDICATION: Fall, head injury. Abrasion to left eyebrow. Altered mental state. TECHNIQUE: Computed tomography (CT) of the head was performed without intravenous contrast. The mA wa s adjusted according to patient size. Iterative reconstruction technique was employed. Exam dose: 60 5.33 mGy-cm total exam DLP. COMPARISON: 10/31/2019 CT abdomen FINDINGS: Calcification of the dominant left vertebral artery and prominent bilateral carotid siphon internal carotid artery calcifications. There is nonspecific diminished attenuation of the cerebral white matter, likely due to chronic small vessel ischemic changes. Chronic lacunar infarct in the left periventricular white matter. No intracranial mass lesion or hemorrhage or recent cerebrovascular accident is detected. No midline shift or mass effect. No subdural or epidural hematoma. There is central and cortical cerebral and cerebellar atrophy. There is extensive opacification of the left maxillary sinus. There is blowout fracture of the medial wall of the left orbit of uncertain age. There is patchy opacification of ethmoid air cells, with pr ominent on the left and moderate soft tissue thickening within the left frontal sinus. Mild soft tiss ue thickening within the left sphenoid sinus. The mastoid air cells are normally developed and aerate d. There is mild subcutaneous emphysema in the left extracranial frontal soft tissues suggesting soft ti ssue laceration. No radiopaque foreign body. No skull fracture or bone destruction is detected. IMPRESSION: Left frontal extracranial subcutaneous emphysema consistent with laceration; no skull fr acture is detected Blowout fracture medial wall left orbit of uncertain age Prominent opacification of left maxillary sinus, left ethmoid and to a lesser extent right ethmoid ai r cells and left frontal sinus and left sphenoid sinus Cerebral atherosclerosis and chronic small vessel ischemic changes of the cerebral white matter Chronic lacunar infarct, left periventricular white matter Central and cortical cerebral and cerebellar atrophy Reviewed, dictated and finalized at [facility]. Reviewed, dictated and finalized at [facility]. R MAKER IMPRESSION: Left frontal extracranial subcutaneous emphysema consistent with l aceration; no skull fracture is detected Blowout fracture medial wall left orbit of uncertain age Prominent opacification of left maxillary sinus, left ethmoid and to a lesser e xtent right ethmoid air cells and left frontal sinus and left sphenoid sinus Cerebral atherosclerosis and chronic small vessel ischemic changes of the cereb ral white matter Chronic lacunar infarct, left periventricular white matter Central and cortical cerebral and cerebellar atrophy
--- NOTE | 2022-03-04 07:44 | ECG_ITS ---
Measurements Intervals Bennett Rate: 60 P: 15 KS: 150 QRS: -28 QRSD: 102 T: 47 QT: 419 QTc: 422 Interpretive Statements SINUS RHYTHM DELAYED PRECORDIAL R/S TRANSITION BASELINE ARTIFACT- II, III, AVF, V1-V3 BORDERLINE ECG COMPARED TO ECG 04/30/2019 11:26:24 SINUS RHYTHM NOW PRESENT Electronically Signed On 03-04-2022 9:51:04 MANAGER FIELD by Dakota Hickey D.O.
--- NOTE | 2022-03-04 07:53 | ED.FALL ---
HPI - Fall General Chief Complaint: Fall Stated Complaint: GLF WITH LAC TO HEAD Time Seen by Provider: 03/04/22 07:06 Source: patient, EMS, RN notes reviewed and old records reviewed Mode of arrival: EMS History of Present Illness HPI Narrative: This is a 76 year old male who presents from [facility] who presents for evaluation who presents for evaluation of ground level fall. Patient states he tripped and fell this morning. He states he does not have any injury or pain. EMS states patient was brought in for evaluation of an unwitnessed fall this morning, and he has forehead laceration. PAtient denies headache, dizziness, nausea, vomiting, rib pain or extremity. He reports mild dizziness. He does not take any anticoagulation. Related Data Home Medications Medication Instructions Recorded Confirmed donepezil 10 mg tablet (Aricept) 10 mg PO DAILY 04/17/19 06/02/19 folic acid 1 mg tablet 1 mg PO DAILY 04/17/19 06/02/19 levothyroxine 100 mcg tablet 100 mcg PO DAILY 04/17/19 06/02/19 thiamine HCl (vitamin B1) 100 mg 100 mg PO DAILY 04/17/19 06/02/19 tablet (Vitamin B-1) trihexyphenidyl 2 mg tablet 2 mg PO BID 04/17/19 06/02/19 mirtazapine 15 mg tablet (Remeron) 7.5 mg PO HS 04/30/19 06/02/19 aripiprazole 10 mg tablet (Abilify) 10 mg PO DAILY 05/21/19 06/02/19 acetaminophen 325 mg tablet 650 mg PO Q4-6H PRN Pain (Scale 06/02/19 06/02/19 (Tylenol) Score 1-3) ondansetron HCl 4 mg tablet 4 mg PO Q6H PRN Nausea And Vomiting 06/02/19 06/02/19 (Zofran) Allergies Allergy/AdvReac Type Severity Reaction Status Date / Time No Known Allergies Allergy Verified 03/04/22 07:10 Review of Systems Review of Systems: All systems reviewed & are unremarkable except as noted in HPI and below Constitutional: Constitutional: Denies weakness Cardiovascular: Cardiovascular: Denies syncope, Denies rapid heart rate, Denies irregular heart rhythm, Denies leg edema and Denies dyspnea Respiratory: Respiratory: Denies chest congestion, Denies hemoptysis, Denies excessive phlegm production and Denies dyspnea Gastrointestinal: Gastrointestinal: Denies abdominal pain, Denies hematochezia, Denies diarrhea and Denies vomiting Genitourinary: Genitourinary: Denies hematuria, Denies dysuria, Denies penile discharge and Denies testicular pain Musculoskeletal: Musculoskeletal: Denies joint swelling, Denies loss of height and Denies muscle weakness Neurologic: Denies syncope, Denies focal weakness and Denies weakness PMFSH Past Medical History Medical History (Updated 03/04/22 @ 11:13 by Kiana Munguia MD) Abnormal urinalysis Acute pancreatitis Alzheimer's dementia Bipolar disorder Choledocholithiasis Hypothyroidism Psychosis Seizures Urinary tract infection Surgical History Surgical History S/P cholecystectomy Family History Family History Other Unknown family medical history Social History Social History Social History: 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 He desires to be a full code and does not have a power traffic law attorney. He is from his . He denies any alcohol or tobacco abuse Smoking status: Unknown if ever smoked Additional smoking assessment comments: patient reports that he never smoked Alcohol intake: unknown Substance use: unknown Substance use type: unknown Additional living arrangements comments: [facility]. Patient does tell me he was previously and now . Gender identity (if verbalized by the patient): Male Spiritual care concerns: No Agree to blood products: Yes Exam Const: General: alert Nutritional Appearance: well nourished Other: oriented to person and place, does not know year HENMT: Head: no hematomas and laceration (left eyebrow 2
[2022-03-04 08:26] LABS: Basophils Absolute Auto 0.1 K/mm3 (0.0-0.1); Basophils Percent Auto 0.7 % (0.2-1.2); Eosinophils Absolute Auto 0.1 K/mm3 (0-0.3); Eosinophils Percent Auto 1.6 % (0-4.4); Hematocrit 42.4 % (42.0-52.0); Hemoglobin 14.6 g/dL (14.0-18.0); Immature Granulocyte Absolute 0.02 K/mm3 (0.00-0.031); Immature Granulocyte Percent A 0.3 % (0-0.5); Lymphocytes Absolute Auto 1.27 K/mm3 (0.9-3.2); Lymphocytes Percent Auto 16.8 % (18.3-44.2); Mean Corpuscular HGB Conc 34.4 g/dl (32-36); Mean Corpuscular Hemoglobin 31.9 pg (26-34); Mean Corpuscular Volume 92.8 fl (80-100); Mean Platelet Volume 9.2 fl (7.4-10.4); Monocytes Absolute Auto 0.4 K/mm3 (0.1-0.6); Neutrophils Absolute Auto 5.7 K/mm3 (1.3-6.7); Neutrophils Percent Auto 75.6 % (45.5-73.1); Platelet Count Result 176 k/mm3 (150-375); Red Blood Count 4.57 M/mm3 (4.6-6.20); Red Cell Distribution Width 12.8 % (11.5-14.5); White Blood Count 7.6 K/mm3 (4.5-10.0)
[2022-03-04 08:37] LABS: Prothrombin Time 12.9 Seconds (11.1-14.7)
[2022-03-04 08:38] LABS: Alanine Aminotransferase 25 U/L (6-50); Albumin Level 3.9 g/dL (3.5-5.1); Alkaline Phosphatase 99 U/L (38-126); Anion Gap 8 mmol/L (8-16); Aspartate Amino Transferase 27 U/L (17-59); Bilirubin,Total 0.7 mg/dL (0.2-1.3); Blood Urea Nitrogen 21 mg/dL (9-20); Calcium 8.4 mg/dL (8.4-10.2); Carbon Dioxide 23 mmol/L (22-30); Chloride 107 mmol/L (98-107); Estimated CRCL calculation 71 ml/min; Estimated Glomerular Filt Rate > 60; Glucose 96 mg/dL (65-110); Partial Thromboplastin Time 32.2 SECONDS (22.3-36.8); Potassium 3.9 mmol/L (3.4-5.0); Sodium 138 mmol/L (137-145)
[2022-03-04 10:03] LABS: Appearance Urine Clear (Clear); Bilirubin Urine Negative (Negative); Blood Urine Trace-intact (Negative); Color Urine Yellow (Yellow); Glucose Urine UA Negative (Negative); Ketones Urine Negative (Negative); Leukocyte Esterase Ur 2+ LEU/UL (Negative); Nitrate Urine Positive (Negative); Protein Urine 1+ mg/dL (Negative)
[2022-03-04 10:16] LABS: Add Urine Microscopic? YES; WBC Clumps Urine Present /HPF; WBC Urine >75 /hpf
[2022-03-04 10:17] LABS: Bacteria Urine 3+ /hpf
--- NOTE | 2022-03-04 10:17 | PC.NURSE ---
updated nursing facility of pt. status.
[2022-03-04] MEDS: cefTRIAXone 1 GM VIAL IM (11:39)
[2022-03-04] MEDS: LIDO 1%/EPINEPHRINE/PF 1:200,000 30 ML VIAL (11:39)
== END 2022-03-04 12:15 ==
PROVIDERS: Emergency Provider General Practice; PCP Family Medicine
DX: S01.112A Laceration without foreign body of left eyelid and periocular area, initial encounter (principal); N39.0 Urinary tract infection, site not specified; G30.9 Alzheimer's disease, unspecified; F02.80 Dementia in other diseases classified elsewhere, unspecified severity, without behavioral disturbance, psychotic disturbance, mood disturbance, and anxiety; E03.9 Hypothyroidism, unspecified; Z87.440 Personal history of urinary (tract) infections; I67.2 Cerebral atherosclerosis; M50.31 Other cervical disc degeneration, high cervical region; M50.321 Other cervical disc degeneration at C4-C5 level; M50.323 Other cervical disc degeneration at C6-C7 level; M50.322 Other cervical disc degeneration at C5-C6 level; M48.02 Spinal stenosis, cervical region; R94.31 Abnormal electrocardiogram [ECG] [EKG]; W01.0XXA Fall on same level from slipping, tripping and stumbling without subsequent striking against object, initial encounter
CPT/HCPCS: 12011; 36415; 70450; 72125; 80053; 81001; 85025; 85610; 85730; 87077; 87086; 87186; 93005; 96372; 99284; J0696

== ENCOUNTER 2023-02-01 03:08 | Observation (INO) | payer OTHER, SELFPAY ==
[2023-02-01] VITALS (18 sets, daily range): BP systolic 63–209; BP diastolic 23–186; PULSE 75–128; RESP 26–51; TEMP 36.7–36.9; O2SAT 50–99
--- NOTE | ~2023-02-01 | XR_ITS ---
Portable chest x-ray Comparison: 05/06/2019 Clinical History: Shortness of breath, aspiration Findings: Possible COPD pattern of the lungs. No consolidation or pleural effusion. Cardiomediastin al silhouette is stable. Bones and soft tissues are unremarkable. Impression: Possible COPD. Clear lungs. Reviewed, dictated and finalized at location M. Impression: Possible COPD. Clear lungs.
--- NOTE | 2023-02-01 03:14 | ED.GENADULT ---
HPI - General Adult General Chief complaint: Shortness of Breath/Dyspnea <Nghia Osuna MD - Last Filed: 02/01/23 07:18> Stated complaint: Resiratory distress <Nghia Osuna MD - Last Filed: 02/01/23 07:18> Time Seen by Provider: 02/01/23 03:11 <Nghia Osuna MD - Last Filed: 02/01/23 07:18> History of Present Illness HPI narrative: Patient is a 77-year-old gentleman who presents the emergency department with chief complaint of shortness of breath patient was transferred from the nursing facility after he was heard gurgling in his room. The patient's nurse there believes that he may have aspirated patient currently is unable to provide much history the patient is a DNR with no intubation although will accept BiPAP and will except vasopressors. <Nghia Osuna MD - Last Filed: 02/01/23 07:18> Related Data Home medications: Home Medications Medication Instructions Recorded Confirmed donepezil 10 mg tablet (Aricept) 10 mg PO DAILY 04/17/19 06/02/19 folic acid 1 mg tablet 1 mg PO DAILY 04/17/19 06/02/19 levothyroxine 100 mcg tablet 100 mcg PO DAILY 04/17/19 06/02/19 thiamine HCl (vitamin B1) 100 mg 100 mg PO DAILY 04/17/19 06/02/19 tablet (Vitamin B-1) trihexyphenidyl 2 mg tablet 2 mg PO BID 04/17/19 06/02/19 mirtazapine 15 mg tablet (Remeron) 7.5 mg PO HS 04/30/19 06/02/19 aripiprazole 10 mg tablet (Abilify) 10 mg PO DAILY 05/21/19 06/02/19 acetaminophen 325 mg tablet 650 mg PO Q4-6H PRN Pain (Scale 06/02/19 06/02/19 (Tylenol) Score 1-3) ondansetron HCl 4 mg tablet 4 mg PO Q6H PRN Nausea And Vomiting 06/02/19 06/02/19 (Zofran) <Nghia Osuna MD - Last Filed: 02/01/23 07:18> Allergies/adverse reactions: Allergies Allergy/AdvReac Type Severity Reaction Status Date / Time No Known Allergies Allergy Verified 07/13/22 15:02 <Nghia Osuna MD - Last Filed: 02/01/23 07:18> Review of Systems Review of Systems: A 10 system review of systems was completed on the patient and is negative except for what is stated in the HPI. Nursing and ancillary documentation was reviewed. <Nghia Osuna MD - Last Filed: 02/01/23 07:18> [facility] Past Medical History Medical History: Medical History Abnormal urinalysis Acute pancreatitis Alzheimer's dementia Bipolar disorder Choledocholithiasis Hypothyroidism Psychosis Seizures Urinary tract infection <Nghia Osuna MD - Last Filed: 02/01/23 07:18> Surgical History Surgical History: Surgical History S/P cholecystectomy <Nghia Osuna MD - Last Filed: 02/01/23 07:18> Family History Family History: Family History Other Unknown family medical history <Nghia Osuna MD - Last Filed: 02/01/23 07:18> Social History Social History: Social History Social History: 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 He desires to be a full code and does not have a power medical esthetician. He is from his . He denies any alcohol or tobacco abuse Smoking status: Unknown if ever smoked Additional smoking assessment comments: patient reports that he never smoked Alcohol intake: unknown Substance use: unknown Substance use type: unknown [facility] Additional living arrangements comments: [facility]. Patient does tell me he was previously and now . Occupation/Education: retired Gender identity (if verbalized by the patient): Male Spiritual care concerns: No Agree to blood products: Yes <Nghia Osuna MD - Last Filed: 02/01/23 07:18> Exam Narrative: GE
[2023-02-01 03:33] LABS: Basophils Absolute Auto 0.1 K/mm3 (0.0-0.1); Basophils Percent Auto 0.3 % (0.2-1.2); Eosinophils Percent Auto 0.1 % (0-4.4); Hematocrit 51.6 % (42.0-52.0); Immature Granulocyte Absolute 0.17 K/mm3 (0.00-0.031); Lymphocytes Absolute Auto 2.01 K/mm3 (0.9-3.2); Lymphocytes Percent Auto 11.6 % (18.3-44.2); Mean Corpuscular HGB Conc 29.1 g/dl (32-36); Mean Corpuscular Volume 96.3 fl (80-100); Mean Platelet Volume 11.1 fl (7.4-10.4); Monocytes Absolute Auto 0.9 K/mm3 (0.1-0.6); Monocytes Percent Auto 4.9 % (2.6-8.5); Neutrophils Absolute Auto 14.3 K/mm3 (1.3-6.7); Neutrophils Percent Auto 82.1 % (45.5-73.1); Platelet Count Result 430 k/mm3 (150-375); Red Blood Count 5.36 M/mm3 (4.6-6.20); Red Cell Distribution Width 17.2 % (11.5-14.5); White Blood Count 17.4 K/mm3 (4.5-10.0)
[2023-02-01] MEDS: ALBUTEROL SULFATE NEB 2.5 MG/3 ML INH INHALATION (03:36)
[2023-02-01] MEDS: IPRATROPIUM BR 0.02% INH SOLN 0.5 MG/2.5 ML VIAL INHALATION (03:37)
[2023-02-01] MEDS: MORPHINE SULFATE (*CRX) 2 MG/ML INJ IV PUSH (03:47)
[2023-02-01 03:49] LABS: INR 1.1
[2023-02-01 03:50] LABS: Partial Thromboplastin Time 29.2 SECONDS (22.3-36.8)
[2023-02-01 03:55] LABS: Crenated RBC 1+ (NORMAL); Platelet Estimate Increased (Adequate); Schistocytes None Seen (NORMAL)
--- NOTE | 2023-02-01 05:00 | PC.NURSE ---
Pt head and extremities appear to be mottled. MD notified. No further orders at this time.
[2023-02-01] MEDS: MORPHINE SULFATE (*CRX) 4 MG/ML INJ 2 MG IV PUSH (05:17)
--- NOTE | 2023-02-01 05:30 | PC.NURSE ---
RN attempted to stick pt. for blood draw. pt. hands, feet and head are all blue, blood draw was unsuccessful. RN notified ERP of pt. condition and that blood draw was unsuccessful. no further orders at this time.
[2023-02-01] MEDS: MORPHINE SULFATE (*CRX) 4 MG/ML INJ IV PUSH (06:06)
[2023-02-01] MEDS: LORazepam INJ (*CRX) 2 MG/ML VIAL 1 MG IV PUSH (06:06)
--- NOTE | 2023-02-01 07:09 | PC.NURSE ---
Assumed care of pt, pt is resting w/ lights dimmed. Pt on tele monitor, POC per EDP is comfort measures for pt. Awaiting PRN orders for medications.
--- NOTE | 2023-02-01 07:26 | PC.NURSE ---
spoke w/ Kelsea from [place] and gave nurse to nurse report, updated on pt status and plan of ADMIT for hospice
--- NOTE | 2023-02-01 11:55 | ADMGEN ---
This patient, Luis Corral, was admitted to [facility] Surg Room 327-01. Patient/family oriented to hospital policies and general routines including ID bracelet, bed and alarms, visiting hours, pain management, procedures, bathroom and other care routines, personal items, smoking policy, room service/diet, and visiting hours. Information on how to activate the Rapid Response Team has been discussed. Patient/Family are encouraged to report perceived risks to care and to ask questions if they do not understand what they are told or what they should do. Report from Roseanna in ER.
--- NOTE | 2023-02-01 12:17 | PC.NURSE ---
Pt passed at 1205 while this nurse was finishing pt admission. Pt from [facility] and got all information from the chart.
--- NOTE | 2023-02-01 16:29 | PM.IMHP ---
H&P: HPI History of Present Illness Date/Time: 02/01/23 16:29 Chief Complaint: SOB Narrative: 77-year-old male with past medical history of Alzheimer's disease, bipolar disorder, hypothyroidism, psychosis, seizures, presented to the ER on account of shortness of breaths. Patient was obtunded at the time of this encounter and thus was unable to provide history. According to ER documentation patient was transferred from nursing facility after he was found gargling his room we can do to believe he also aspirated. noted patient was a poor historian. Your evaluation notable for white count 17.4, pyuria, positive nitrates, chest x-ray showed clear lungs with possible positive COPD. He arrived here on BiPAP, ER provider discussed with the family, his daughter, who lives in [place] and decided to make patient comfortable. Patient was DNR DNI to start with, was transitioned to comfort care per family wishes. 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 He desires to be a full code and does not have a power criminal defense attorney. He is from his . He denies any alcohol or tobacco abuse Smoking status: Never smoker Additional smoking assessment comments: patient reports that he never smoked Alcohol intake: unknown Substance use: unknown Substance use type: unknown Living arrangements: [facility] Additional living arrangements comments: [facility]. Patient does tell me he was previously and now . Occupation/Education: retired Gender identity (if verbalized by the patient): Male Spiritual care concerns: No Agree to blood products: Yes Meds Home Medications and Allergies Home Medications Medication Instructions Recorded Confirmed Type folic acid 1 mg tablet 1 mg PO DAILY 04/17/19 02/01/23 History levothyroxine 100 mcg tablet 100 mcg PO DAILY 04/17/19 02/01/23 History thiamine HCl (vitamin B1) 100 mg 100 mg PO DAILY 04/17/19 02/01/23 History tablet (Vitamin B-1) trihexyphenidyl 2 mg tablet 2 mg PO TID 04/17/19 02/01/23 History mirtazapine 15 mg tablet (Remeron) 15 mg PO HS 04/30/19 02/01/23 History tamsulosin 0.4 mg capsule 0.4 mg PO QAM #30 caps 05/09/19 02/01/23 Rx aripiprazole 10 mg tablet (Abilify) 5 mg PO DAILY 05/21/19 02/01/23 History acetaminophen 325 mg tablet 650 mg PO Q4-6H PRN Pain (Scale 06/02/19 02/01/23 History (Tylenol) Score 1-3) ondansetron HCl 4 mg tablet 4 mg PO Q6H PRN Nausea And Vomiting 06/02/19 02/01/23 History (Zofran) buspirone 5 mg tablet 5 mg PO BID 02/01/23 02/01/23 History ferrous sulfate 325 mg (65 mg 325 mg PO BID 02/01/23 02/01/23 History iron) tablet furosemide 20 mg tablet 20 mg PO DAILY 02/01/23 02/01/23 History lorazepam 0.5 mg tablet 0.5 mg PO BID 02/01/23 02/01/23 History megestrol 40 mg tablet 40 mg PO DAILY 02/01/23 02/01/23 History potassium chloride 10 mEq 10 meq PO DAILY 02/01/23 02/01/23 History tablet,extended release trazodone 50 mg tablet 50 mg PO HS 02/01/23 02/01/23 History Allergies Allergy/AdvReac Type Severity Reaction Status Date / Time No Known Allergies Allergy Verified 07/13/22 15:02 Vital Signs Vital Signs - 24 hr 02/01/23 03:07 02/01/23 03:13
--- NOTE | 2023-02-01 16:40 | PM.DDS ---
Discharge Summary Date and Time Date of : 02/01/23 Time of : 12:05 Provider Pronounced By: Cristel Hampton RN Probable Cause of Probable Cause of : Acute hypoxemic respiratory failure Summary Hospital Course: 77-year-old male with past medical history of Alzheimer's disease, bipolar disorder, hypothyroidism, psychosis, seizures, presented to the ER on account of shortness of breaths. Patient was obtunded at the time of this encounter and thus was unable to provide history.? According to ER documentation patient was transferred from nursing facility after he was found gargling his room we can do to believe he also aspirated.? noted? patient was a poor historian. Your evaluation notable for white count 17.4, pyuria, positive nitrates, chest x-ray showed clear lungs with possible positive COPD. He arrived here on BiPAP, ER provider discussed with the family, his daughter, who lives in [place] and decided to make patient comfortable.? Patient was DNR DNI to start with, was transitioned to comfort care? per family wishes. assessment and plan Acute hypoxemic respiratory failure Likely from aspiration versus COPD versus PE versus ACS Patient was DNR DNI, family decided to transition to comfort care. Continue comfort care occult per family wishes. UTI Bipolar disorder Alzheimer's disease Hypothyroidism/psychosis Seizures Continue comfort care. patient passed at 12-5 pm and family were informed Additional Data Confirmation of as documented by pronouncing clinician: Pupillary Reflex, Palpable Pulses, Response to Stimuli, Heart Tones and Breath Sounds Name of Provider Notified: Dr. Whelan Time Provider Notified: 12:32 Provider Requests Autopsy: No Family Requests Autopsy: No Medical Laboratory Specialist Notified: Yes Date [facility] Notified of : 02/01/23 Time [facility] Notified of : 12:43
== END 2023-02-01 13:45 | disposition expired ==
LOC: ANHED 07:24 → ANH3MEDSUR 07:50
PROVIDERS: Admitting Provider Internal Medicine; Emergency Provider Emergency Medicine; PCP Family Medicine; Visit Provider Internal Medicine
DX: J96.01 Acute respiratory failure with hypoxia (principal); G30.9 Alzheimer's disease, unspecified; F02.80 Dementia in other diseases classified elsewhere, unspecified severity, without behavioral disturbance, psychotic disturbance, mood disturbance, and anxiety; F31.9 Bipolar disorder, unspecified; E03.9 Hypothyroidism, unspecified; R56.9 Unspecified convulsions; R11.2 Nausea with vomiting, unspecified; F29 Unspecified psychosis not due to a substance or known physiological condition; Z66 Do not resuscitate; Z79.82 Long term (current) use of aspirin; Z79.899 Other long term (current) drug therapy
CPT/HCPCS: 36415; 71045; 85025; 85610; 85730; 94002; 94640; 96374; 96375; 96376; 99285; G0379; J2060; J2270